=== PATIENT | male | born 1935 | race Caucasian/White ===

== ENCOUNTER → 2018-09-19 | Outpatient (CLI) | payer MEDICARE, OTHER ==
--- NOTE | 2018-09-19 11:52 | Diagnostic Imaging Report ---
INDICATION: Cough and congestion. FINDINGS: The lungs are clear. The heart and vessels are normal. There is no effusion or pneumothorax. IMPRESSION: No acute appearing abnormality. Dictated by: Dictated on workstation # [id number]
== END ==
LOC: RAD FS 11:33
PROVIDERS: ATTEND Nurse Practitioner Family
DX: R05 Cough (principal); B96.89 Other specified bacterial agents as the cause of diseases classified elsewhere; R09.89 Other specified symptoms and signs involving the circulatory and respiratory systems
CPT/HCPCS: 71046

== ENCOUNTER 2020-07-06 10:02 | Emergency (ER) | payer MEDICARE, OTHER ==
[~2020-07-06] VITALS: Ht 167.7 cm; Wt 110.0 kg
--- NOTE | 2020-07-06 10:07 | ED Cardiac General ---
History of Present Illness General Stated Complaint: LOW HR; ARRHYTHMIA Source: patient Exam Limitations: no limitations History of Present Illness Date Seen by Provider: Jul 06, 2020 Time Seen by Provider: 10:07 Initial Comments 84-year-old male presents with 2-3 days of feeling weak and decreased appetite. This morning was using a pulse oximeter and stated that his heart rate was fluctuating between 30 and 100 and he was feeling palpitations at the time. Denies history of heart or lung problems, denies recent illness fever or chills. Denies known exposure to the Hawthorne virus. Only significant past medical history is hypertension and prostate Hypertrophy. Allergies and Home Medications Allergies Coded Allergies: No Known Drug Allergies (Unverified , 07/06/20) Home Medications Azithromycin 250 Mg Tablet, 250 MG PO UD TAKE 2 TABLETS ON DAY ONE THEN TAKE 1 TABLET DAILY FOR FOUR MORE DAYS Prescribed by: MARILUZ RODRIGUEZ on 07/06/20 1131 Patient Home Medication List Home Medication List Reviewed: Yes Review of Systems Review of Systems Constitutional: No chills, No diaphoresis; dizziness; No fever; malaise, weakness EENTM: No Symptoms Reported Respiratory: No Symptoms Reported; Denies Cough, Denies Shortness of Air Cardiovascular: Denies Chest Pain, Denies Edema; Lightheadedness, Palpitations; Denies Syncope Gastrointestinal: Denies Abdomen Distended, Denies Abdominal Pain, Denies Constipated, Denies Nausea; Poor Appetite, Poor Fluid Intake; Denies Vomiting Musculoskeletal: No back pain, No joint pain, No neck pain Skin: No change in color, No lesions, No rash Psychiatric/Neurological: Denies Headache, Denies Numbness, Denies Paresthesia, Denies Seizure, Denies Tingling, Denies Tremors; Weakness Past Vuqusbi-Oahpas-Knghmx Hx Past Med/Social Hx: Reviewed Nursing Past Med/Soc Hx Patient Social History Alcohol Use: Denies Use Physical Exam Vital Signs Vital Signs - First Documented 07/06/20 10:08 Temp 37.0 Pulse 96 Resp 15 B/P (MAP) 134/66 (88) Pulse Ox 95 O2 Delivery Room Air Capillary Refill : Height, Weight, BMI Height: '" Weight: lbs. oz. kg; BMI Method: General Appearance: No Apparent Distress, WD/WN HEENT: PERRL/EOMI, Normal ENT Inspection Neck: Non Tender, Supple Respiratory: Chest Non Tender, Lungs Clear, Normal Breath Sounds, No Accessory Muscle Use, No Respiratory Distress Cardiovascular: Regular Rate, Rhythm, No Edema, No Gallop, No JVD, No Murmur, Normal Peripheral Pulses Gastrointestinal: Normal Bowel Sounds, Non Tender, Soft Extremity: Normal Capillary Refill, Normal Inspection, Non Tender, No Calf Tenderness Neurologic/Psychiatric: Alert, Oriented x3, No Motor/Sensory Deficits, Normal Mood/Affect, commissioning specialist II-XII Norm as Tested Skin: Normal Color, Warm/Dry Progress/Results/Core Measures Results/Orders Lab Results Laboratory Tests Test 07/06/20 10:14 07/06/20 10:30 Range/Units White Blood Count 6.0 4.3-11.0 10^3/uL Red Blood Count 4.52 4.35-5.85 10^6/uL Hemoglobin 14.7 13.3-17.7 G/DL Hematocrit 43 40-54 % Mean Corpuscular Volume 96 80-99 FL Mean Corpuscular Hemoglobin 33 25-34 PG Mean Corpuscular Hemoglobin Concent 34 32-36 G/DL Red Cell Distribution Width 12.5 10.0-14.5 % Platelet Count 150 130-400 10^3/uL Mean Platelet Volume 10.5 H 7.4-10.4 FL Immature Granulocyte % (Auto) 0 % Neutrophils (%) (Auto) 50 42-75 % Lymphocytes (%) (Auto) 34 12-44 % Monocytes (%) (Auto) 15 H 0-12 % Eosinophils (%) (Auto) 0 0-10 % Basophils (%) (Auto) 1 0-10 % Neutrophils # (Auto) 3.0 1.8-7.8 X 10^3 Lymphocytes # (Auto) 2.0 1.0-4.0 X 10^3 Monocytes # (Auto) 0.9 0.0-1.0 X 10^3 Eosinophils # (Auto) 0.0 0.0-0.3 10^3/uL Basophils # (Auto) 0.0 0.0-0.1 10^3/uL Immature Granulocyte # (Auto) 0.0 0.0-0.1 10^3/uL Sodium Level 135 135-145 MMOL/L Potassium Level 4.4 3.6-5.0 MMOL/L Chloride Level 99 98-107 MMOL/L Carbon Dioxide Level 23 21-32 MMOL/L Anion Gap 13 5-14 MMOL/L Blood Urea Nitrogen 17 7-18 MG/DL Creatinine 1.07 0.60-1.30 MG/DL Estimat Glomerular Filtration Rate > 60 BUN/Creatinine Ratio 16 Glucose Level 117 H 70-105 MG/DL Calcium Level 9.1 8.5-10.1 MG/DL Corrected Calcium 9.3 8.5-10.1 MG/DL Total Bilirubin 0.6 0.1-1.0 MG/DL Aspartate Amino Transf (AST/SGOT) 49 H 5-34 U/L Alanine Aminotransferase (ALT/SGPT) 46 0-55 U/L Alkaline Phosphatase 57 40-136 U/L Troponin I < 0.30 <0.30 NG/ML C-Reactive Protein 1.55 H <0.50 MG/DL Total Protein 7.4 6.4-8.2 GM/DL Albumin 3.8 3.2-4.5 GM/DL Micro Results Microbiology 07/06/20 Influenza Types A,B Antigen (LYNNE) - Final, Complete My Orders Orders - MARILUZ RODRIGUEZ DO Ed Iv/Invasive Line Start (07/06/20 10:11) Troponin I Fs (07/06/20 10:11) Chest 1 View Ap/Pa Only (07/06/20 10:11) Ekg Tracing (07/06/20 10:11) Cbc With Automated Diff (07/06/20 10:11) Comprehensive Metabolic Panel (07/06/20 10:11) Urinalysis (07/06/20 10:11) Crp Fs (07/06/20 10:24) Procalcitonin (Pct) (07/06/20 10:24) Coronavirus Sars-Cov-2 So 2018 (07/06/20 10:24) Influenza A And B Antigens (07/06/20 10:28) Ns Iv 1000 Ml (Sodium Chloride 0.9%) (07/06/20 11:00) Vital Signs/I&O 07/06/20 07/06/20 10:08 11:35 Temp 37.0 37.0 Pulse 96 88 Resp 15 16 B/P (MAP) 134/66 (88) 126/49 (88) Pulse Ox 95 94 O2 Delivery Room Air Progress Progress Note : Progress Note Patient without any respiratory symptoms currently or in the past few weeks. Overall, feeling weakness and decreased appetite for 2 weeks. Labs are completely normal and CXR with questionable opacity in LLL. Decision to treat w Azithromycin and advise f/u w PCP in 1-2 weeks for re-evaluation. Also, tested for C-19 which will be pending. HR improved (from 100 to 80's) after 1 liter NS iv. Reassurance given about his concern over a fluctuating heart rate this morning from his pulse oximeter, explained that it may not have been picking up his pulse accurately as he said it was going up and down. Also during his entire ER stay, he was watched on the monitor and his heart rate was consistently in the 9 0s until after he was given fluid. Initial ECG Impression Date: Jul 06, 2020 Initial ECG Impression Time: 10:15 Initial ECG Rhythm: Normal Sinus Initial ECG Intervals: Normal Initial ECG Impression: Normal Initial ECG Comparisson: No Previous ECG Available Diagnostic Imaging Diagonstic Imaging: Xray Plain Films/CT/US/NM/MRI: chest Comments Date of Exam:07/06/20 CHEST 1 VIEW AP/PA ONLY INDICATION: weakness. TECHNIQUE: Single view chest 10:15 AM. CORRELATION STUDY: 09/19/2018 FINDINGS: The heart size, mediastinal configuration and pulmonary vascularity are within normal limits. Minimal opacity left lung base. Could reflect small area of developing infiltrate. Remaining lung suh otherwise clear. IMPRESSION: 1. Opacity left lung base could be a developing area of infiltrate. Follow-up imaging if clinically warranted. Dictated on workstation # [id number] Dict: 07/06/20 1030 Trans: 07/06/20 1043 APRIL [id number] Interpreted by: GORDO JACOBO DO Electronically signed by: Departure Impression Primary Impression: Weakness Additional Impression: Mild dehydration Disposition: HOME, SELF-CARE Condition: Stable Departure-Patient Inst. Decision time for Depature: 11:08 Referrals: SELFRUBIO MD (PCP/Family) Primary Care Physician Patient Instructions: Dehydration, Adult ED, Weakness ED Add. Discharge Instructions: See your doctor in 1 week for follow up evaluation. It is also advised you get a follow up chest x-ray from your doctor in 1 or 2 weeks The antibiotic is given you for a potential infection in your left lower lung. You will get a phone call regarding the results of your Covid test Scripts Azithromycin (Azithromycin) 250 Mg Tablet 250 MG PO UD, #6 TAB TAKE 2 TABLETS ON DAY ONE THEN TAKE 1 TABLET DAILY FOR FOUR MORE DAYS Prov: MARILUZ RODRIGUEZ DO 07/06/20 MARILUZ RODRIGUEZ DO Jul 06, 2020 10:07
[2020-07-06 10:27] LABS: HEMATOCRIT 43 % (40-54); HEMOGLOBIN 14.7 G/DL (13.3-17.7); MEAN CORPUSCULAR HEMOGLOBIN 33 PG (25-34); MEAN CORPUSCULAR VOLUME 96 FL (80-99)
[2020-07-06 10:28] LABS: BASOPHILS % (AUTO) 1 % (0-10); EOSINOPHILS % (AUTO) 0 % (0-10); LYMPHOCYTES % (AUTO) 34 % (12-44); MEAN CORPUSCULAR HGB CONC 34 G/DL (32-36); MEAN PLATELET VOLUME 10.5 FL (7.4-10.4); MONOCYTES # (AUTO) 0.9 X 10^3 (0.0-1.0); MONOCYTES % (AUTO) 15 % (0-12); NEUTROPHILS % (AUTO) 50 % (42-75); PLATELET COUNT 150 10^3/uL (130-400)
--- NOTE | 2020-07-06 10:43 | Diagnostic Imaging Report ---
INDICATION: weakness. TECHNIQUE: Single view chest 10:15 AM. CORRELATION STUDY: 09/19/2018 FINDINGS: The heart size, mediastinal configuration and pulmonary vascularity are within normal limits. Minimal opacity left lung base. Could reflect small area of developing infiltrate. Remaining lung suh otherwise clear. IMPRESSION: 1. Opacity left lung base could be a developing area of infiltrate. Follow-up imaging if clinically warranted. Dictated by: Dictated on workstation # [id number]
[2020-07-06 10:45] LABS: SODIUM 135 MMOL/L (135-145)
[2020-07-06 10:46] LABS: ALANINE AMINOTRANSFERASE 46 U/L (0-55); ALBUMIN 3.8 GM/DL (3.2-4.5); ALKALINE PHOSPHATASE 57 U/L (40-136); BILIRUBIN,TOTAL 0.6 MG/DL (0.1-1.0); BUN/CREATININE RATIO 16; CALCIUM 9.1 MG/DL (8.5-10.1); CARBON DIOXIDE 23 MMOL/L (21-32); CHLORIDE 99 MMOL/L (98-107); CREATININE SERUM 1.07 MG/DL (0.60-1.30); GFR ESTIMATED > 60; GLUCOSE 117 MG/DL (70-105); POTASSIUM 4.4 MMOL/L (3.6-5.0); TOTAL PROTEIN 7.4 GM/DL (6.4-8.2)
[2020-07-06] MEDS ORDERED: NS IV 1000 ML 1,000 ML IV SCH (11:00)
[2020-07-06] MEDS ORDERED: AZIT250T12 PO (11:31)
[2020-07-06 11:35] VITALS: BP 126/49
--- NOTE | 2020-07-08 10:53 | NUR ---
Notified patient of positive COVID test.
--- NOTE | 2020-07-08 10:59 | NUR ---
Notified Sumi BRENNAN at Dr Braun office of patients positive COVID test.
== END 2020-07-06 11:35 | disposition home or self-care (01) ==
LOC: EDUNIT# 10:02 → ER FS 10:05
DX: U07.1 COVID-19 (principal); R53.1 Weakness; E86.0 Dehydration
CPT/HCPCS: 36415; 71045; 80053; 84145; 84484; 85025; 86141; 87804 ×2; 93005; 99284; U0002; 87635

== ENCOUNTER 2020-07-11 10:10 | Emergency (ER) | payer MEDICARE, OTHER ==
[~2020-07-11] VITALS: Ht 172 cm; Wt 100.0 kg
[~2020-07-11 10:10] MED LIST: AZIT250T12 PO
--- NOTE | 2020-07-11 10:40 | ED General ---
General Chief Complaint: Cough/Cold/Flu Symptoms Stated Complaint: COUGH,DIZZINESS Nursing Triage Note: PT WAS POSITIVE FOR COVID 5 DAYS AGO. HE COMES TO ER TODAY BECAUSE HE STILL HAS A COUGH AND FEELS DIZZY SOMETIMES AFTER COUGHING. Nursing Sepsis Screen: No Definite Risk Source of Information: Patient History of Present Illness Date Seen by Provider: Jul 11, 2020 Time Seen by Provider: 10:15 Initial Comments 84-year-old male presenting with complaints of feeling weak, dizzy at times, continued cough since being diagnosed with Covid when seen in ED 06 Jul 2020. He states that he completed the Z-José Manuel that was prescribed to him and he has 1 or [address] Rico had prescribed Mucinex DM as well as Tessalon Perles to help with his coughing. He occasionally will bring up some clear or thick white sputum. He denies any fever or chills. He had called the clinic about his symptoms and they told him to come to the emergency department. Allergies and Home Medications Allergies Coded Allergies: No Known Drug Allergies (Unverified , 07/06/20) Home Medications Albuterol Sulfate 2.5 Mg/3 Ml Vial.neb, 2.5 MG INH Q4H PRN for COUGH Prescribed by: TIARRA CORDOBA on 07/11/20 1133 Azithromycin 250 Mg Tablet, 250 MG PO UD TAKE 2 TABLETS ON DAY ONE THEN TAKE 1 TABLET DAILY FOR FOUR MORE DAYS Prescribed by: MARILUZ RODRIGUEZ on 07/06/20 1131 Patient Home Medication List Home Medication List Reviewed: Yes Review of Systems Review of Systems Constitutional: No chills; dizziness (Intermittent); No fever; malaise EENTM: nose congestion; No epistaxis Respiratory: see HPI, cough Cardiovascular: No chest pain Gastrointestinal: no symptoms reported Genitourinary: no symptoms reported Musculoskeletal: no symptoms reported Skin: no symptoms reported Psychiatric/Neurological: Weakness (Generalized) Hematologic/Lymphatic: No Symptoms Reported Past Lcaghrd-Stdnbj-Zxoqjv Hx Past Med/Social Hx: Reviewed Nursing Past Med/Soc Hx Patient Social History Alcohol Use: Denies Use Recent Infectious Disease Expo: Yes Recent Hopitalizations: No Seasonal Allergies Seasonal Allergies: No Past Medical History Surgeries: Yes (Right ankle repair, Kidney stone retrieval) Appendectomy, Orthopedic, Tonsillectomy Respiratory: No Cardiac: Yes Hypertension Neurological: No Genitourinary: Yes Benign Prostatic Hyperpl Gastrointestinal: No Musculoskeletal: No Endocrine: No HEENT: No Cancer: No Psychosocial: No Blood Disorders: No Physical Exam Vital Signs Vital Signs - First Documented 07/11/20 10:27 Temp 37.6 Pulse 91 Resp 20 B/P (MAP) 167/67 (100) Pulse Ox 100 O2 Delivery Room Air Capillary Refill : Less Than 3 Seconds Height, Weight, BMI Height: '" Weight: lbs. oz. 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 Norm as Tested Skin: Normal Color, Warm/Dry Progress/Results/Core Measures Suspected Sepsis Recent Fever Within 48 Hours: No Infection Criteria Present: None New/Unexplained Altered Menta: No Sepsis Screen: No Definite Risk SIRS Temperature: Pulse: 91 Respiratory Rate: 20 Laboratory Tests 07/11/20 10:40: White Blood Count 9.6 Blood Pressure 167 /67 Mean: 100 Laboratory Tests 07/11/20 10:40: Creatinine 1.00, Platelet Count 212, Total Bilirubin 0.6 Results/Orders Lab Results Laboratory Tests Test 07/11/20 10:40 Range/Units White Blood Count 9.6 4.3-11.0 10^3/uL Red Blood Count 4.21 L 4.35-5.85 10^6/uL Hemoglobin 13.8 13.3-17.7 G/DL Hematocrit 40 40-54 % Mean Corpuscular Volume 94 80-99 FL Mean Corpuscular Hemoglobin 33 25-34 PG Mean Corpuscular Hemoglobin Concent 35 32-36 G/DL Red Cell Distribution Width 12.4 10.0-14.5 % Platelet Count 212 130-400 10^3/uL Mean Platelet Volume 10.6 H 7.4-10.4 FL Immature Granulocyte % (Auto) 0 % Neutrophils (%) (Auto) 76 H 42-75 % Lymphocytes (%) (Auto) 13 12-44 % Monocytes (%) (Auto) 11 0-12 % Eosinophils (%) (Auto) 0 0-10 % Basophils (%) (Auto) 0 0-10 % Neutrophils # (Auto) 7.2 1.8-7.8 X 10^3 Lymphocytes # (Auto) 1.2 1.0-4.0 X 10^3 Monocytes # (Auto) 1.1 H 0.0-1.0 X 10^3 Eosinophils # (Auto) 0.0 0.0-0.3 10^3/uL Basophils # (Auto) 0.0 0.0-0.1 10^3/uL Immature Granulocyte # (Auto) 0.0 0.0-0.1 10^3/uL Sodium Level 135 135-145 MMOL/L Potassium Level 4.2 3.6-5.0 MMOL/L Chloride Level 100 98-107 MMOL/L Carbon Dioxide Level 25 21-32 MMOL/L Anion Gap 10 5-14 MMOL/L Blood Urea Nitrogen 19 H 7-18 MG/DL Creatinine 1.00 0.60-1.30 MG/DL Estimat Glomerular Filtration Rate > 60 BUN/Creatinine Ratio 19 Glucose Level 122 H 70-105 MG/DL Calcium Level 9.2 8.5-10.1 MG/DL Corrected Calcium 9.6 8.5-10.1 MG/DL Total Bilirubin 0.6 0.1-1.0 MG/DL Aspartate Amino Transf (AST/SGOT) 36 H 5-34 U/L Alanine Aminotransferase (ALT/SGPT) 40 0-55 U/L Alkaline Phosphatase 47 40-136 U/L Troponin I < 0.30 <0.30 NG/ML C-Reactive Protein 2.22 H <0.50 MG/DL Total Protein 6.9 6.4-8.2 GM/DL Albumin 3.5 3.2-4.5 GM/DL My Orders Orders - TIARRA CORDOBA MD Monitor-Rhythm Ecg Trace Only (07/11/20 10:38) Ed Iv/Invasive Line Start (07/11/20 10:38) Cbc With Automated Diff (07/11/20 10:38) Comprehensive Metabolic Panel (07/11/20 10:38) Crp Fs (07/11/20 10:38) Troponin I Fs (07/11/20 10:38) Ekg Tracing (07/11/20 10:38) Ns Iv 1000 Ml (Sodium Chloride 0.9%) (07/11/20 10:45) Rx-Albuterol Inhaler (Rx-Ventolin Hfa) (07/11/20 10:45) Chest 1 View Ap/Pa Only (07/11/20 11:01) Medications Given in ED Current Medications Medications Dose Ordered Sig/Liliana Route Start Time Stop Time Status Last Admin Dose Admin Albuterol Sulfate 2 PUFFS IH Q1HR STA RTQ4HR PRN IH 07/11/20 10:45 07/11/20 11:47 DC 07/11/20 10:49 18 GM Vital Signs/I&O 07/11/20 07/11/20 10:27 11:39 Temp 37.6 36.5 Pulse 91 77 Resp 20 16 B/P (MAP) 167/67 (100) 151/65 Pulse Ox 100 100 O2 Delivery Room Air Room Air Capillary Refill : Less Than 3 Seconds Blood Pressure Mean: 100 Progress Note #1: Progress Note Check basic labs and x-ray. Give a liter of normal saline to try and help with hydration. Patient's oxygen saturation is 100% on room air. His lungs are clear on exam. We will see what his chest x-ray shows as well as making sure that his electrolytes appear okay. Adding an inhaler and breathing treatments may help with his cough. Encouraged to continue the Mucinex DM and Tessalon Perles as needed. Progress Note #2: Progress Note CBC is not showing any acute significant abnormality. His white count is 9.6 with a slight left shift. His electrocardiogram shows sinus rhythm without isch emic changes. He does state that he has a nebulizer at home but has not been using it because he was not told to use it for his symptoms Progress Note #3: Time: 11:23 Progress Note Chemistry without acute significant abnormality as well. He does have elevated CRP to go with Covid diagnosis. CXR appears stable from 06 Jul 2020. Will d ischarge to home and have him use nebulizer and inhaler with spacer to help with cough. Encourage fluids and rest. Counseled that Covid will make him feel bad and can take a while to recover from it. Every one is different but continue with symptomatic treatment for his cough and push fluids and rest as well as Vitamin C to help recover from viral infection. ECG Initial ECG Impression Date: Jul 11, 2020 Initial ECG Impression Time: 10:44 Initial ECG Rate: 81 Initial ECG Rhythm: Normal Sinus Initial ECG Comparisson: No Previous ECG Available Comment Normal sinus rhythm with a heart rate of 81 bpm. VT interval 154 ms. QT interval 357 ms with a QTc interval 415 ms. There is no acute ST elevation. There is no prior tracing available for comparison. Diagnostic Imaging Diagonstic Imaging: Xray Plain Films/CT/US/NM/MRI: chest Comments [facility] [place], [place] NAME: LLOYD GREWAL [facility] REC#: [id number] PT STATUS: DEP ER : 1935 PHYSICIAN: TIARRA CORDOBA MD ADMIT DATE: 07/11/20/ER FS Signed Date of Exam:07/11/20 CHEST 1 VIEW AP/PA ONLY INDICATION: Cough and COVID infection. TECHNIQUE: Portable AP view of the chest is obtained. FINDINGS: Since 07/06/2020, there are continued predominantly linear markings in the lung bases which may be due to atelectasis or possible scarring. There is no pneumothorax. No significant lobar consolidation or pleural fluid is identified. IMPRESSION: Basilar atelectasis and/or pneumonitis versus developing scarring, bilaterally. Dictated by: Dictated on workstation # [id number] Dict: 07/11/20 1134 Trans: 07/11/20 1154 [id number] [id number] Interpreted by: ROBERT CORNELIUS MD Electronically signed by: ROBERT CORNELIUS MD 07/11/20 1154 Departure Impression Primary Impression: Cough Additional Impression: COVID-19 virus infection Disposition: HOME, SELF-CARE Condition: Stable Departure-Patient Inst. Decision time for Depature: 11:35 Referrals: RUBIO RICO MD (PCP/Family) Primary Care Physician Patient Instructions: Coronavirus Disease 2019 (COVID-19) ED, Cough, Adult ED, How to Use Your Metered Dose Inhaler (Adults), How to Use a Spacer Add. Discharge Instructions: Use inhaler with spacer or your nebulizer machine to do breathing treatments every 4 to 6 hours as needed to help with cough and shortness of breath. Follow up with Dr. Rico and [facility] for continued concerns. Continue with cough medicine as prescribed from Dr. Rico. Continue with humidifier at the bedside. Make sure you are drinking plenty of fluids and staying well hydrated. All discharge instructions reviewed with patient and/or family. Voiced understanding. Scripts Albuterol Sulfate (Albuterol Sulfate) 2.5 Mg/3 Ml Vial.neb 2.5 MG INH Q4H PRN for COUGH for 10 Days, #75 ML 1 Refill Prov: TIARRA CORDOBA MD 07/11/20 TIARRA CORDOBA MD Jul 11, 2020 10:40
[2020-07-11] MEDS ORDERED: NS IV 1000 ML 1,000 ML IV SCH (10:45)
[2020-07-11] MEDS ORDERED: RX-ALBUTEROL INHALER (VENTOLIN HFA) 18 GM IH PRN (10:45)
[2020-07-11 11:04] LABS: BASOPHILS % (AUTO) 0 % (0-10); EOSINOPHILS % (AUTO) 0 % (0-10); HEMATOCRIT 40 % (40-54); HEMOGLOBIN 13.8 G/DL (13.3-17.7); LYMPHOCYTES % (AUTO) 13 % (12-44); MEAN CORPUSCULAR HEMOGLOBIN 33 PG (25-34); MEAN CORPUSCULAR HGB CONC 35 G/DL (32-36); MEAN CORPUSCULAR VOLUME 94 FL (80-99); MEAN PLATELET VOLUME 10.6 FL (7.4-10.4); MONOCYTES % (AUTO) 11 % (0-12); NEUTROPHILS % (AUTO) 76 % (42-75); PLATELET COUNT 212 10^3/uL (130-400); WHITE BLOOD COUNT 9.6 10^3/uL (4.3-11.0)
[2020-07-11 11:05] LABS: LYMPHOCYTES # (AUTO) 1.2 X 10^3 (1.0-4.0); MONOCYTES # (AUTO) 1.1 X 10^3 (0.0-1.0); NEUTROPHILS # (AUTO) 7.2 X 10^3 (1.8-7.8)
[2020-07-11 11:16] LABS: ALANINE AMINOTRANSFERASE 40 U/L (0-55); ALBUMIN 3.5 GM/DL (3.2-4.5); ALKALINE PHOSPHATASE 47 U/L (40-136); BILIRUBIN,TOTAL 0.6 MG/DL (0.1-1.0); BUN/CREATININE RATIO 19; CALCIUM 9.2 MG/DL (8.5-10.1); CARBON DIOXIDE 25 MMOL/L (21-32); CHLORIDE 100 MMOL/L (98-107); GFR ESTIMATED > 60; GLUCOSE 122 MG/DL (70-105); POTASSIUM 4.2 MMOL/L (3.6-5.0); SODIUM 135 MMOL/L (135-145); TOTAL PROTEIN 6.9 GM/DL (6.4-8.2)
[2020-07-11] MEDS ORDERED: ALBU2.5V4 INH (11:33)
--- NOTE | 2020-07-11 11:38 | Diagnostic Imaging Report ---
INDICATION: Cough and COVID infection. TECHNIQUE: Portable AP view of the chest is obtained. FINDINGS: Since 07/06/2020, there are continued predominantly linear markings in the lung bases which may be due to atelectasis or possible scarring. There is no pneumothorax. No significant lobar consolidation or pleural fluid is identified. IMPRESSION: Basilar atelectasis and/or pneumonitis versus developing scarring, bilaterally. Dictated by: Dictated on workstation # [id number]
[2020-07-11 11:39] VITALS: BP 151/65
== END 2020-07-11 11:47 | disposition home or self-care (01) ==
LOC: EDUNIT# 10:10 → ER FS 10:12
DX: U07.1 COVID-19 (principal)
CPT/HCPCS: 36415; 71045; 80053; 84484; 85025; 86141; 93005; 93041

== ENCOUNTER → 2021-09-18 | Outpatient (RCR) | payer MEDICARE, OTHER ==
[~2021-09-18] MED LIST changes: +ALBU2.5V4 INH
== END ==
LOC: ONC 09-17 09:34
PROVIDERS: ATTEND Radiology Radiation Oncology
DX: C20 Malignant neoplasm of rectum (principal)
CPT/HCPCS: 99204

== ENCOUNTER 2021-09-30 14:05 | Emergency (ER) | payer MEDICARE, OTHER ==
[~2021-09-30] VITALS: Ht 167.9 cm; Wt 90.7 kg
[2021-09-30] MEDS ORDERED: ADENOSINE 6 MG/2 ML (ADENOCARD) VIAL IV ONE (14:16)
[2021-09-30] MEDS ORDERED: ADENOSINE 6 MG/2 ML (ADENOCARD) VIAL IV STA (14:34)
--- NOTE | 2021-09-30 14:42 | ED Cardiac General ---
History of Present Illness General Chief Complaint: Cardiac/General Problems Stated Complaint: TACHYCARDIA Source: patient Exam Limitations: no limitations History of Present Illness Date Seen by Provider: Sep 30, 2021 Time Seen by Provider: 14:18 Initial Comments Patient to the ER by private conveyance from cancer center Dr. Burton where he was receiving radiation therapy and chemotherapy for colorectal cancer. He is having some shortness of breath and palpitations and fast running heart rate. No chest pain. No syncope or near syncope. While sitting in the bed he denies any shortness of air. He has not had a cough fever chills nausea or vomiting. He did recently get over bronchitis a few weeks ago. 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 He does not have any known heart history other than high blood pressure, borderline diabetes and hyperlipidemia. He is not a smoker. He does however have a history of COPD Allergies and Home Medications Allergies Coded Allergies: No Known Drug Allergies (Unverified , 07/06/20) Patient Home Medication List Home Medication List Reviewed: Yes Albuterol Sulfate (Albuterol Sulfate) 2.5 Mg/3 Ml Vial.neb, 2.5 MG INH Q4H PRN for COUGH Prescribed by: TIARRA CORDOBA on 07/11/20 1133 Azithromycin (Azithromycin) 250 Mg Tablet, 250 MG PO UD Prescribed by: MARILUZ ORDRIGUEZ on 07/06/20 1131 Review of Systems Review of Systems Constitutional: No chills, No diaphoresis EENTM: No Blurred Vision, No Double Vision Respiratory: Denies Cough, Denies Shortness of Air; SOA With Exertion; Denies SOA at Rest Cardiovascular: See HPI; Denies Chest Pain, Denies Irregular Heart Rate; Lightheadedness; Denies Syncope Gastrointestinal: Denies Abdomen Distended, Denies Abdominal Pain Genitourinary: Denies Burning, Denies Discharge Musculoskeletal: No back pain, No joint pain Skin: No change in color, No pruritus, No rash Psychiatric/Neurological: Denies Headache, Denies Numbness All Other Systems Reviewed Negative Unless Noted: Yes Past Frifazb-Mpfwgx-Ysbxmc Hx Patient Social History Tobacco Use?: No Use of E-Cig and/or Vaping dev: No Substance use?: No Seasonal Allergies Seasonal Allergies: No Past Medical History Surgeries: Yes (Right ankle repair, Kidney stone retrieval) Appendectomy, Orthopedic, Tonsillectomy Respiratory: No Cardiac: Yes Hypertension Neurological: No Genitourinary: Yes Benign Prostatic Hyperpl Gastrointestinal: No Musculoskeletal: No Endocrine: No HEENT: No Cancer: No Psychosocial: No Blood Disorders: No Physical Exam Vital Signs Vital Signs - First Documented 09/30/21 14:05 Temp 36.6 Pulse 181 Resp 24 B/P (MAP) 136/102 (113) Pulse Ox 94 Capillary Refill : Height, Weight, BMI Height: '" Weight: lbs. oz. kg; 33.00 BMI Method: General Appearance: No Apparent Distress, WD/WN HEENT: PERRL/EOMI, Pharynx Normal, Moist Mucous Membranes Neck: Full Range of Motion, Normal Inspection, Non Tender Respiratory: Lungs Clear, Normal Breath Sounds, No Accessory Muscle Use, No Res piratory Distress Cardiovascular: No Edema, No Murmur, Normal Peripheral Pulses, Tachycardia (1 80-1 90) Gastrointestinal: Normal Bowel Sounds, No Organomegaly, Non Tender, Soft Extremity: Normal Capillary Refill, Normal Inspection, Non Tender, No Calf Tenderness, No Pedal Edema Neurologic/Psychiatric: Alert, Oriented x3, No Motor/Sensory Deficits, Normal 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, 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 Norm as Tested Skin: Normal Color, Warm/Dry Progress/Results/Core Measures Results/Orders Lab Results Laboratory Tests Test 09/30/21 14:11 Range/Units White Blood Count 11.7 H 4.3-11.0 10^3/uL Red Blood Count 4.36 4.30-5.52 10^6/uL Hemoglobin 13.7 13.3-17.7 g/dL Hematocrit 41 40-54 % Mean Corpuscular Volume 94 80-99 fL Mean Corpuscular Hemoglobin 31 25-34 pg Mean Corpuscular Hemoglobin Concent 33 32-36 g/dL Red Cell Distribution Width 13.6 10.0-14.5 % Platelet Count 333 130-400 10^3/uL Mean Platelet Volume 10.1 9.0-12.2 fL Immature Granulocyte % (Auto) 0 % Neutrophils (%) (Auto) 61 42-75 % Lymphocytes (%) (Auto) 21 12-44 % Monocytes (%) (Auto) 13 H 0-12 % Eosinophils (%) (Auto) 4 0-10 % Basophils (%) (Auto) 1 0-10 % Neutrophils # (Auto) 7.2 1.8-7.8 10^3/uL Lymphocytes # (Auto) 2.4 1.0-4.0 10^3/uL Monocytes # (Auto) 1.5 H 0.0-1.0 10^3/uL Eosinophils # (Auto) 0.4 H 0.0-0.3 10^3/uL Basophils # (Auto) 0.1 0.0-0.1 10^3/uL Immature Granulocyte # (Auto) 0.1 0.0-0.1 10^3/uL Prothrombin Time 14.2 12.2-14.7 SEC INR Comment 1.1 0.8-1.4 Activated Partial Thromboplast Time 41 H 24-35 SEC Sodium Level 138 135-145 MMOL/L Potassium Level 4.3 3.6-5.0 MMOL/L Chloride Level 103 98-107 MMOL/L Carbon Dioxide Level 23 21-32 MMOL/L Anion Gap 12 5-14 MMOL/L Blood Urea Nitrogen 16 7-18 MG/DL Creatinine 1.04 0.60-1.30 MG/DL Estimat Glomerular Filtration Rate 71 BUN/Creatinine Ratio 15 Glucose Level 120 H 70-105 MG/DL Calcium Level 9.6 8.5-10.1 MG/DL Corrected Calcium 9.9 8.5-10.1 MG/DL Magnesium Level 2.4 1.6-2.4 MG/DL Total Bilirubin 0.6 0.1-1.0 MG/DL Aspartate Amino Transf (AST/SGOT) 45 H 5-34 U/L Alanine Aminotransferase (ALT/SGPT) 53 0-55 U/L Alkaline Phosphatase 67 40-136 U/L Myoglobin 179.3 H 10.0-92.0 NG/ML Troponin I < 0.028 <0.028 NG/ML Total Protein 7.3 6.4-8.2 GM/DL Albumin 3.6 3.2-4.5 GM/DL My Orders Orders - ATTILA GUERRA Adenosine Injection (Adenocard Injection (09/30/21 14:16) Cbc With Automated Diff (09/30/21 14:34) Magnesium (09/30/21 14:34) Chest 1 View, Ap/Pa Only (09/30/21 14:34) Ekg Tracing (09/30/21 14:34) Comprehensive Metabolic Panel (09/30/21 14:34) Myoglobin Serum (09/30/21 14:34) Protime With Inr (09/30/21 14:34) Partial Thromboplastin Time (09/30/21 14:34) O2 (09/30/21 14:34) Monitor-Rhythm Ecg Trace Only (09/30/21 14:34) Lipid Panel (10/01/21 06:00) Ed Iv/Invasive Line Start (09/30/21 14:34) Troponin I Jay (09/30/21 14:34) Adenosine Injection (Adenocard Injection (09/30/21 14:34) Aspirin Chewable Tablet (Baby Aspirin Ch (09/30/21 14:45) Ekg Tracing (09/30/21 14:34) Medications Given in ED Current Medications Medications Dose Ordered Sig/Liliana Route Start Time Stop Time Status Last Admin Dose Admin Aspirin 324 mg ONCE ONCE PO 09/30/21 14:45 09/30/21 14:46 DC 09/30/21 14:45 324 MG Vital Signs/I&O 09/30/21 14:05 Temp 36.6 Pulse 181 Resp 24 B/P (MAP) 136/102 (113) Pulse Ox 94 Progress Progress Note : Time: 14:44 Progress Note He was immediately brought back in the ER an EKG was obtained demonstrating SVT. Given his history we elected to chemically cardiovert him. He had a blood pressure 136/80. We gave him 6 mg IV adenosine and watched him convert into a sinus rhythm around 100. Initial ECG Impression Date: Sep 30, 2021 Initial ECG Impression Time: 14:14 Initial ECG Rate: 186 Initial ECG Rhythm: SVT Initial ECG Intervals: QT (459) Initial ECG Impression: SVT Comment SVT without recognizable ST elevation or depression. EKG #1: EKG Time: 14:17 Rate: 185 Rhythm: SVT ECG Comparisson: Changed ECG Impression: SVT Comment SVT with transition time after pushing 6 mg of Adenocard to a sinus rhythm rate around 100. EKG #2: EKG Time: 14:20 Rate: 91 Rhythm: Normal Sinus Intervals: Normal ECG Comparisson: Changed ECG Impression: Normal Comment Normal sinus rhythm without clinically relevant ST elevation or depression. Diagnostic Imaging Diagonstic Imaging: Xray Plain Films/CT/US/NM/MRI: chest Comments [facility] [place], [place] NAME: LLOYD GREWAL [facility] REC#: [id number] PT STATUS: REG ER : 1935 PHYSICIAN: ATTILA GUERRA MD ADMIT DATE: 09/30/21/ER Draft Date of Exam:09/30/21 CHEST 1 VIEW, AP/PA ONLY Indication: Tachycardia. Time of Exam: 3:09 PM Correlation is made with prior chest 07/11/2020. Finding: The heart size is normal. The pulmonary vascularity is unremarkable. The lungs are clear. No infiltrate, effusion or pneumothorax is detected. Impression: No acute cardiopulmonary process is detected. Dictated on workstation # [id number] Dict: 09/30/21 1522 Trans: 09/30/21 1522 [facility] [id number] Interpreted by: KARINA RAMIREZ MD Electronically signed by: Reviewed: Reviewed by Me Consults : Consulting Physician: CHUCK AGUIRRE MD Consults Notes Discussed the case with Dr. Aguirre, cardiology and if the patient is asymptomatic and not dehydrated he would recommend outpatient follow-up in the clinic. Departure Impression Primary Impression: Paroxysmal SVT (supraventricular tachycardia) Disposition: 01 HOME, SELF-CARE Condition: Stable Departure-Patient Inst. Decision time for Depature: 16:03 Referrals: CHUCK AGUIRRE MD, MAXWELL MD (PCP/Family) Primary Care Physician Patient Instructions: Supraventricular Tachycardia (SVT) Add. Discharge Instructions: Call Dr. Aguirre's office during business hours and set up a follow-up appointment sometime this week. Return to the ER promptly if you experience chest pain or profound shortness of air. If you go back into a rapid heart rate then imagine you are blowing air through a coffee stirrer straw across the room to blow out a candle. Do this once or twice a minute for 10 to 15 minutes. If you cannot get the rhythm to convert b ack to a normal rate on your own then return to the ER and we will help you. You may collect a copy of your records from medical records to take with you or have faxed to Dr. Bowles at . Make sure you are drinking plenty of fluids over the next couple days. All discharge instructions reviewed with patient and/or family. Voiced understanding. Copy Copies To 1: CHUCK AGUIRRE MD; SARINA ADAMSON TITUS J Sep 30, 2021 14:42
[2021-09-30] MEDS ORDERED: ASPIRIN 81 MG CHEW (CHILDREN'S ASA) PO ONE (14:45)
[2021-09-30 14:46] LABS: BASOPHILS # (AUTO) 0.1 10^3/uL (0.0-0.1); BASOPHILS % (AUTO) 1 % (0-10); EOSINOPHILS # (AUTO) 0.4 10^3/uL (0.0-0.3); EOSINOPHILS % (AUTO) 4 % (0-10); HEMATOCRIT 41 % (40-54); HEMOGLOBIN 13.7 g/dL (13.3-17.7); LYMPHOCYTES # (AUTO) 2.4 10^3/uL (1.0-4.0); LYMPHOCYTES % (AUTO) 21 % (12-44); MEAN CORPUSCULAR HEMOGLOBIN 31 pg (25-34); MEAN CORPUSCULAR HGB CONC 33 g/dL (32-36); MEAN CORPUSCULAR VOLUME 94 fL (80-99); MEAN PLATELET VOLUME 10.1 fL (9.0-12.2); MONOCYTES # (AUTO) 1.5 10^3/uL (0.0-1.0); MONOCYTES % (AUTO) 13 % (0-12); NEUTROPHILS # (AUTO) 7.2 10^3/uL (1.8-7.8); NEUTROPHILS % (AUTO) 61 % (42-75); PLATELET COUNT 333 10^3/uL (130-400); WHITE BLOOD COUNT 11.7 10^3/uL (4.3-11.0)
[2021-09-30 14:52] LABS: ALBUMIN 3.6 GM/DL (3.2-4.5); POTASSIUM 4.3 MMOL/L (3.6-5.0)
[2021-09-30 14:53] LABS: INR 1.1 (0.8-1.4); PROTHROMBIN TIME PATIENT 14.2 SEC (12.2-14.7)
[2021-09-30 14:54] LABS: CALCIUM 9.6 MG/DL (8.5-10.1)
[2021-09-30 14:55] LABS: TOTAL PROTEIN 7.3 GM/DL (6.4-8.2)
[2021-09-30 14:56] LABS: BILIRUBIN,TOTAL 0.6 MG/DL (0.1-1.0)
[2021-09-30 14:58] LABS: CREATININE SERUM 1.04 MG/DL (0.60-1.30)
[2021-09-30 15:02] LABS: MAGNESIUM 2.4 MG/DL (1.6-2.4)
--- NOTE | 2021-09-30 15:23 | Diagnostic Imaging Report ---
Indication: Tachycardia. Time of Exam: 3:09 PM Correlation is made with prior chest 07/11/2020. Finding: The heart size is normal. The pulmonary vascularity is unremarkable. The lungs are clear. No infiltrate, effusion or pneumothorax is detected. Impression: No acute cardiopulmonary process is detected. Dictated by: Dictated on workstation # [id number]
[2021-09-30 16:25] VITALS: BP 133/81
== END 2021-09-30 16:25 | disposition home or self-care (01) ==
LOC: EDUNIT# 14:11 → ER 14:12
DX: C18.9 Malignant neoplasm of colon, unspecified (principal); I47.1 Supraventricular tachycardia
CPT/HCPCS: 36415; 71045; 80053; 83735; 83874; 84484; 85025; 85610; 85730; 93005; 93041

== ENCOUNTER 2021-10-17 13:20 | Outpatient (RCR) | payer MEDICARE, OTHER | END 2021-10-18 | disposition home or self-care (01) | LOC: ONC 13:20 | PROVIDERS: ATTEND Radiology Radiation Oncology | DX: Z51.0 Encounter for antineoplastic radiation therapy (principal); C20 Malignant neoplasm of rectum; I10 Essential (primary) hypertension; Z86.16 Personal history of COVID-19; N40.0 Benign prostatic hyperplasia without lower urinary tract symptoms; E78.2 Mixed hyperlipidemia; Z79.82 Long term (current) use of aspirin; Z79.899 Other long term (current) drug therapy | CPT/HCPCS: 77300; 77301; 77338; 77386 ×2; 77470; G0463; 77336 ==

== ENCOUNTER 2021-11-06 13:17 | Outpatient (RCR) | payer MEDICARE, OTHER | END 2021-11-18 | disposition home or self-care (01) | LOC: ONC 13:17 | PROVIDERS: ATTEND Radiology Radiation Oncology | DX: Z51.0 Encounter for antineoplastic radiation therapy (principal); C20 Malignant neoplasm of rectum; I10 Essential (primary) hypertension; Z86.16 Personal history of COVID-19; N40.0 Benign prostatic hyperplasia without lower urinary tract symptoms; E78.2 Mixed hyperlipidemia; Z79.82 Long term (current) use of aspirin; Z79.899 Other long term (current) drug therapy | CPT/HCPCS: 77336; 77385; 77386 ==

== ENCOUNTER → 2021-11-10 | Outpatient (CLI) | payer MEDICARE, OTHER | LOC: CARD 11:34 | PROVIDERS: ATTEND Internal Medicine Cardiovascular Disease | DX: I11.9 Hypertensive heart disease without heart failure (principal); I08.0 Rheumatic disorders of both mitral and aortic valves | CPT/HCPCS: 93306 ==

== ENCOUNTER → 2021-11-10 | Outpatient (CLI) | payer MEDICARE, OTHER | LOC: SLEEP 11:33 | PROVIDERS: ATTEND Internal Medicine Cardiovascular Disease | DX: G47.33 Obstructive sleep apnea (adult) (pediatric) (principal); G47.36 Sleep related hypoventilation in conditions classified elsewhere ==

== ENCOUNTER 2021-12-25 11:32 | Outpatient (RCR) | payer MEDICARE, OTHER ==
[2022-01-19] MEDS ORDERED: TMSL.4C PO (12:52)
[2022-01-19] MEDS ORDERED: ACET-704 PO (12:52)
[2022-01-19] MEDS ORDERED: [UNRECOGNIZED DRUG - OTHER] PO (12:52)
[2022-01-19] MEDS ORDERED: LOPE-175 PO (12:52)
[2022-01-19] MEDS ORDERED: UBID100C17 PO (12:52)
[2022-01-19] MEDS ORDERED: RESV250C2 PO (12:52)
[2022-01-19] MEDS ORDERED: CHOL10004 PO (12:52)
[2022-01-19] MEDS ORDERED: ASPI-1238 PO (12:52)
[2022-01-19] MEDS ORDERED: PANT40TA52 PO (12:52)
[2022-01-19] MEDS ORDERED: BACI28.4 TP (12:52)
[2022-01-19] MEDS ORDERED: MONT-40 PO (12:52)
[2022-01-19] MEDS ORDERED: OMG1KC PO (12:52)
[2022-01-19] MEDS ORDERED: BETA15CR4 TP (12:52)
[2022-01-19] MEDS ORDERED: GLUC-174 PO (12:52)
[2022-01-19] MEDS ORDERED: MTP100TCR PO (12:52)
[2022-01-19] MEDS ORDERED: TRM50T PO (12:52)
[2022-01-19] MEDS ORDERED: ROSU20TA32 PO (12:52)
[2022-01-19] MEDS ORDERED: POTA99CA PO (12:52)
[2022-01-19] MEDS ORDERED: VIT1CAPS40 PO (12:52)
[2022-01-19] MEDS ORDERED: ASCO-262 PO (12:52)
[2022-01-19] MEDS ORDERED: FERR324T22 PO (12:52)
[2022-01-19] MEDS ORDERED: CETI10TA17 PO (12:52)
[2022-01-19] MEDS ORDERED: [UNRECOGNIZED DRUG - REMARK] PO (12:52)
[2022-01-19] MEDS ORDERED: MAGIC MOUTHWASH (12:52)
[2022-01-19] MEDS ORDERED: ACET325C7 PO (12:52)
[2022-01-19] MEDS ORDERED: DIPH1TAB PO (12:52)
[2022-01-19] MEDS ORDERED: MULT-1136 PO (12:56)
== END 2022-01-18 | disposition home or self-care (01) ==
LOC: ONC 11:32
PROVIDERS: ATTEND Radiology Radiation Oncology
DX: C19 Malignant neoplasm of rectosigmoid junction (principal); I10 Essential (primary) hypertension; E78.2 Mixed hyperlipidemia; I25.10 Atherosclerotic heart disease of native coronary artery without angina pectoris
CPT/HCPCS: 99213

== ENCOUNTER → 2021-12-25 | Outpatient (CLI) | payer MEDICARE, OTHER | LOC: RT 13:00 | PROVIDERS: ATTEND Nurse Practitioner Family | DX: J30.9 Allergic rhinitis, unspecified (principal) | CPT/HCPCS: 94060; 94726; 94729 ==

== ENCOUNTER 2022-01-11 08:11 | Inpatient (IN) | payer MEDICARE, OTHER ==
[~2022-01-11] VITALS: Ht 167.7 cm; Wt 94.6 kg
[2022-01-19] MEDS ORDERED: VIT1CAPS40 PO (12:52)
[2022-01-19] MEDS ORDERED: ACET-704 PO (12:52)
[2022-01-19] MEDS ORDERED: ASPI-1238 PO (12:52)
[2022-01-19] MEDS ORDERED: OMG1KC PO (12:52)
[2022-01-19] MEDS ORDERED: MTP100TCR PO (12:52)
[2022-01-19] MEDS ORDERED: MONT-40 PO (12:52)
[2022-01-19] MEDS ORDERED: LOPE-175 PO (12:52)
[2022-01-19] MEDS ORDERED: DIPH1TAB PO (12:52)
[2022-01-19] MEDS ORDERED: UBID100C17 PO (12:52)
[2022-01-19] MEDS ORDERED: TMSL.4C PO (12:52)
[2022-01-19] MEDS ORDERED: POTA99CA PO (12:52)
[2022-01-19] MEDS ORDERED: ROSU20TA32 PO (12:52)
[2022-01-19] MEDS ORDERED: MAGIC MOUTHWASH (12:52)
[2022-01-19] MEDS ORDERED: GLUC-174 PO (12:52)
[2022-01-19] MEDS ORDERED: ASCO-262 PO (12:52)
[2022-01-19] MEDS ORDERED: TRM50T PO (12:52)
[2022-01-19] MEDS ORDERED: RESV250C2 PO (12:52)
[2022-01-19] MEDS ORDERED: BETA15CR4 TP (12:52)
[2022-01-19] MEDS ORDERED: [UNRECOGNIZED DRUG - REMARK] PO (12:52)
[2022-01-19] MEDS ORDERED: PANT40TA52 PO (12:52)
[2022-01-19] MEDS ORDERED: FERR324T22 PO (12:52)
[2022-01-19] MEDS ORDERED: BACI28.4 TP (12:52)
[2022-01-19] MEDS ORDERED: CETI10TA17 PO (12:52)
[2022-01-19] MEDS ORDERED: ACET325C7 PO (12:52)
[2022-01-19] MEDS ORDERED: CHOL10004 PO (12:52)
[2022-01-19] MEDS ORDERED: [UNRECOGNIZED DRUG - OTHER] PO (12:52)
[2022-01-19] MEDS ORDERED: MULT-1136 PO (12:56)
[2022-01-19] MEDS ORDERED: BISACODYL 10 MG SUPP (DULCOLAX) PR PRN (14:15)
[2022-01-19] MEDS ORDERED: DOCUSATE SODIUM 100 MG (COLACE) CAP PO PRN (14:15)
[2022-01-19] MEDS ORDERED: diphenhydrAMINE 25 MG TAB (BENADRYL) PO PRN (14:15)
[2022-01-19] MEDS ORDERED: MELATONIN 3 MG TABLET PO PRN (14:15)
[2022-01-19] MEDS ORDERED: ALPRAZolam 0.25 MG (XANAX) TAB PO PRN (14:15)
[2022-01-19] MEDS ORDERED: NON-FORMULARY MEDICATION 1 EA EA (Betamethasone Dipropionate 1 APPLIC) TOP PRN (14:15)
[2022-01-19] MEDS ORDERED: LOPERAMIDE 2 MG (IMODIUM) TABLET PO PRN (14:15)
[2022-01-19] MEDS ORDERED: LACTULOSE SYRUP 10GM/15ML (ENULOSE) 30ML UDC PO PRN (14:15)
[2022-01-19] MEDS ORDERED: guaiFENesin/CODEINE (ROBITUSSIN AC) 10ML UDC PO PRN (14:15)
[2022-01-19] MEDS ORDERED: ACETAMINOPHEN 325 MG TABLET PO PRN ×2 (14:15→17:00)
[2022-01-19] MEDS ORDERED: CALCIUM CARBONATE 500 MG (TUMS) TAB.CHEW PO PRN (14:15)
[2022-01-19] MEDS ORDERED: FLEET ENEMA ADULT 1 EA BTL PR PRN (14:15)
[2022-01-19] MEDS ORDERED: ONDANSETRON 4 MG (ZOFRAN) ORAL DISSOLVE TAB PO PRN (14:15)
[2022-01-19 15:00] VITALS: BP 130/60
--- NOTE | 2022-01-19 15:20 | Physical Therapy Evaluation ---
PT Evaluation-General Medical Diagnosis Admission Date Jan 19, 2022 at 13:58 Medical Diagnosis: RECTAL CANCER S/P RESECTION WITH DIVERTING LOOP ILEOSTOMY Onset Date: Jan 06, 2022 Therapy Diagnosis Therapy Diagnosis: impaired mobility Precautions Precautions/Isolations: Fall Prevention, Standard Precautions Medical History Pertinent Medical History: HTN Reviewed History: Yes Social History Home: Single Level Current Living Status: Spouse Entry Into Home: Stairs With Railing PT Steps Into Home: 3 Prior Prior Level of Function SCALE: Activities may be completed with or without assistive devices. 0-Puyiuxeqpy-tscmiey completes the activity by him/herself with no assistance from a helper. 5-Set-up or Clean-up Assistance-helper sets up or cleans up; patient completes activity. Bryan assists only prior to or following the activity. 4-Supervision or Touching Assistance-helper provides verbal cues and/or touchin g/steadying and/or contact guard assistance as patient completes activity. Assistance may be provided throughout the activity or intermittently. 3-Partial/Moderate Assistance-helper does LESS THAN HALF the effort. Bryan lifts, holds or supports trunk or limbs, but provides less than half the effort. 2-Substantial/Maximal Assistance-helper does MORE THAN HALF the effort. Bryan lifts or holds trunk or limbs and provides more than half the effort. 4-Hmjqyrabe-oppvho does ALL the effort. Patient does none of the effort to complete the activity. Or, the assistance of 2 or more helpers is required for the patient to complete the activity. If activity was not attempted, code reason: 7-Patient Refused. 9-Not Applicable-not attempted and the patient did not perform the activity before the current illness, exacerbation or injury. 10-Not Attempted due to Environmental Limitations-(lack of equipment, weather restraints, etc.). 88-Not Attempted due to Medical Conditions or Safety Concerns. Bed Mobility: 6 Transfers (B,C,W/C): 6 Gait: 6 Stairs: 6 Indoor Mobility (Ambulation): Independent Stairs: Independent Patient uses a SPC at home PT Evaluation-Current Subjective Patient arrives via family transport. Patient has discomfort from a blister on his bottom. Will be co-treating with OT due to poor patient mobility, strength, endurance, increased fatigue from travel, coordinate UE and LE with activity, safety and reduce risk of falls. Pt/Family Goals to be independent at home Objective Patient Orientation: Person, Place, Situation ROM/Strength ROM Lower Extremities WNL Strength Lower Extremities LLE (hip flexion 3+/5, knee flexion 4+/5, knee extension 4+/5, dorsiflexion 4+/5), RLE (hip flexion 3+/5, knee flexion 4+/5, knee extension 4+/5, raciel siflexion 4+/5) Sensory Vision: Wears Glasses Hearing: Impaired Sensation Right Lower Extremit: Intact Sensation Left Lower Extremity: Intact Transfers Roll Left & Right (QC): 6 Sit to Lying (QC): 6 Lying to Sitting/Side of Bed(Q: 6 Sit to Stand (QC): 4 Chair/Frn-sm-Nlwif Xfer(QC): 4 Toilet Transfer (QC): 4 Car Transfer (QC): 4 Patient performs rolling and supine <-> sit with independence, sit <-> stand and transfers SBA, car transfer SBA. Patient needs occasional cues for direction or safety. Gait Does the Patient Walk?: Yes Mode of Locomotion: Walk Anticipated Mode of Locomotion: Walk Walk 10 feet (QC): 4 Walk 50 ft with 2 Turns(QC): 4 Walk 150 ft (QC): 4 Walking 10ft/uneven surface-QC: 4 Distance: 300'x2, 120' Gait Assistive Device: FWW Comments/Gait Description Patient can ambulate 300' with a rolling walker with SBA (including 50' with at least 2 turns of 90 degrees and 10' over an uneven surface), gait is fairly brisk and steady Wheelchair Training Does the Pt Use a Wheelchair?: No Wheel 50 ft with 2 turns (QC): 9 Wheel 150 ft (QC): 9 Stairs #of Steps: 4 1 Step (curb) (QC): 4 4 Steps (QC): 4 12 Steps (QC): 88 Patient can go up and down 4 steps using 2 handrails with SBA Balance Sitting Static: Normal Sitting Dynamic: Normal Standing Static: Good Standing Dynamic: Fair Picking up an Object (QC): 4 (SBA with press tender incendiary grenade) Special Test Comments Patient scored 25/28 on the Tinetti Assessment Tool. Treatment Patient performs a walking activity where he had to find objects, scan, turn, reach. He also performed some ADL's in his restroom. PT performed bed mobility and transfers, ambulation, stair training, gait training during jules reaching activity, standing and safety during ADL's, OT performed some dressing, ADL's, hallway ambulating reaching activity, UE positioning and safety during activity. Assessment/Needs Patient in recliner post tx with nurse call, phone, tray, all needs met. Patient has impaired mobility, strength, endurance, balance. Just needs SBA for transfers and ambulation. Rehab Potential: Fair PT Short Term Goals Short Term Goals Time Frame: Jan 26, 2022 Roll Left & Right: 6 Sit to lyin Lying to sitting on side of be: 6 Sit to stand: 5 Chair/dtb-ey-kqkux transfer: 5 Walk 10 feet: 5 Walk 50 feet with two turns: 5 Walk 150 feet: 5 PT Residential Goals Residential Goals PT Residential Goals Time Frame: Feb 09, 2022 Roll Left & Right (QC): 6 Sit to Lying (QC): 6 Lying-Sitting on Side/Bed(QC): 6 Sit to Stand (QC): 6 Chair/Pll-qf-Rasvm Xfer(QC): 6 Toilet Transfer (QC): 6 Car Transfer (QC): 6 Does the Patient Walk: Yes Walk 10 feet (QC): 6 Walk 50ft with 2 Turns (QC): 6 Walk 150 ft (QC): 6 Walking 10ft on Uneven Surface: 6 1 Step (curb) (QC): 6 4 Steps (QC): 6 12 Steps (QC): 6 Picking up an Object (QC): 6 Wheel 50 feet with 2 turns (QC: 9 Wheel 150 feet: 9 PT Plan Problem List Problem List: Activity Tolerance, Functional Strength, Safety, Balance, Gait, Transfer, ROM Treatment/Plan Treatment Plan: Continue Plan of Care Treatment Plan: Education, Functional Activity Amuricio, Functional Strength, Group Therapy, Gait, Safety, Therapeutic Exercise, Transfers Treatment Duration: Feb 09, 2022 Frequency: At least 5 of 7 days/Wk (IRF) Estimated Hrs Per Day: 1.5 hours per day Patient and/or Family Agrees t: Yes Safety Risks/Education Patient Education: Gait Training, Transfer Techniques, Steps, Correct Positioning, Safety Issues Teaching Recipient: Patient Teaching Methods: Demonstration, Discussion Response to Teaching: Reinforcement Needed Discharge Recommendations Plan Patient will perform bed mobility and transfer training, balance and endurance training, functional strengthening, stair training, gait training, and education, to improve functional mobility and independence at home. Therapy Discharge Recommendati: Home & Family, Post Acute PT Time/GCodes Time In: 1350 Time Out: 1525 Total Billed Treatment Time: 90 Total Billed Treatment 1 visit EVM 10' FA 80' PT eval from [id number], OT eval from [id number], co-treating from [id number] MARIAMA SHEPHERD PT Jan 19, 2022 15:20
--- NOTE | 2022-01-19 15:22 | Occupational Therapy Eval ---
OT Evaluation-General/PLF Medical Diagnosis Admission Date Jan 19, 2022 at 13:58 Medical Diagnosis: rectal cancer, s/p Robot Assisted LAR w/diverting loop ileostomy Onset Date: Jan 06, 2022 Therapy Diagnosis Therapy Diagnosis: reduced endurance, strength Precautions Precautions/Isolations: Fall Prevention, Standard Precautions Referral Physician: Jacque Referral Reason: Evaluation/Treatment Medical History Pertinent Medical History: HTN Additional Medical History rectal adenocarcinoma Current History 01/06/22 Robot assisted low anterior resection, diverting loop ileostomy Pt reports living with his in a single story home. He was indep with adls (except socks/shoes) and his managed most of the iadls. (Pt able to make h is own breakfast and lunch). He was using a cane at baseline or reports "furniture walking." Pt works ~35 hours/week at his [employer]. Reviewed History: Yes Social History Home: Single Level Current Living Status: Spouse Entry Into Home: Stairs With Railing Steps Into Home: 3 ADL-Prior Level of Function SCALE: Activities may be completed with or without assistive devices. 2-Gtwzlqujcn-wteyqlj completes the activity by him/herself with no assistance from a helper. 5-Set-up or Clean-up Assistance-helper sets up or cleans up; patient completes activity. [place] assists only prior to or following the activity. 4-Supervision or Touching Assistance-helper provides verbal cues and/or touching/steadying and/or contact guard assistance as patient completes activity. Assistance may be provided throughout the activity or intermittently. 3-Partial/Moderate Assistance-helper does LESS THAN HALF the effort. [place] lifts, holds or supports trunk or limbs, but provides less than half the effort. 2-Substantial/Maximal Assistance-helper does MORE THAN HALF the effort. [place] lifts or holds trunk or limbs and provides more than half the effort. 2-Dhabmdqii-ljkhew does ALL the effort. Patient does none of the effort to complete the activity. Or, the assistance of 2 or more helpers is required for the patient to complete the activity. If activity was not attempted, code reason: 7-Patient Refused. 9-Not Applicable-not attempted and the patient did not perform the activity before the current illness, exacerbation or injury. 10-Not Attempted due to Environmental Limitations-(lack of equipment, weather restraints, etc.). 88-Not Attempted due to Medical Conditions or Safety Concerns. Self Care: Needed Some Help Functional Cognition: Independent DME/Equipment: Bath Bench (owns but was not using ), Tub/Shower Drive Self: No OT Current Status Subjective Pt reports pain in tailbone from blister. No numerical value given. Co-treat with PT for part of treatment secondary to poor endurance, increased fatigue from travel, and poor mobility. Appearance Pt left sitting in recliner, all needs within reach at therapy departure. 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 Pt ambulated ~400 feet with SBA and use of walker. When using a cane, mild unsteadiness and zigzagging observed. Pt requesting to defer use of cane until LE strength improves. Pt already dressed for the day,however was willing to demonstrate LB dressing for assessment purposes. He was able to thread BLE's into LB clothing without physical assistance. He reports that he uses a security assurance specialist when threading feet into underwear at baseline. He stood to manage over hips with supervision for safety. Pt refuses to demonstrate ability to don/doff socks as he verbalizes that he does not do it at home. Pt declines learning how to use AE as he reports that his will continue to perform task for him post discharge. He independently stood and completed oral care, shaving, and face washing. No unsteadiness observed. Pt does need intermittent cues for walker placement during adls and transfers. Other Treatments Pt walked through halls to retrieve cards placed at different heights. Focus on improving higher level balance, endurance, functional reaching, and safety needed for adls and functional transfers. Good safety observed when reaching out of JACQUES. Min verbal cues for improved body mechanics and to use legs vs back when reaching below hip level. Appears to tolerate activity well. 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 2=Patient will verbalize/demonstrate understanding of assistive devices/modifications for ADL. 3=Patient will improve strength/tolerance for activity to enable patient to perform ADL's. OT Education/Plan Problem List/Assessment Assessment: Decreased Activ Tolerance, Decreased Safety Aware, Decreased UE Strength, Impaired Funct Balance, Impaired I ADL's, Impaired Self-Care Skills Discharge Recommendations Plan/Recommendations: Continue POC Therapy Discharge Recommendati: Home & Family, Post Acute OT (home health ) Treatment Plan/Plan of Care Treatment,Training & Education: Yes Patient would benefit from OT for education, treatment and training to promote independence in ADL's, mobility, safety and/or upper extremity function for ADL's. Plan of Care: ADL Retraining, Caregiver Training, Cognitive Retraining, Concurrent Therapy, Functional Mobility, Group Exercise/Act as Ind, UE Funct Exercise/Act Treatment Duration: Jan 29, 2022 Frequency: At least 5 of 7 days/Wk (IRF) Estimated Hrs Per Day: 1.5 hours per day (75-90 min/day ) Agreement: Yes Rehab Potential: Good Time/GCodes Start Time: 13:55 Stop Time: 15:25 Total Time Billed (hr/min): 90 Billed Treatment Time 1 visit EVL (10 min) ADL x3 (45 min) FA x2 (35 min) Umu Barney OT Jan 19, 2022 15:22
[2022-01-19] MEDS ORDERED: MAGIC MOUTHWASH SCH (17:00)
[2022-01-19] MEDS: LOPERAMIDE 2 MG (IMODIUM) TABLET PO SCH ×2 (17:17→20:48)
[2022-01-19] MEDS: DOCUSATE SODIUM 100 MG (COLACE) CAP PO SCH (19:29)
[2022-01-19] MEDS: polyethylene glycoL POWDER 17 GM (MIRALAX) PACK PO SCH (19:30)
[2022-01-19] MEDS: SENNA W/DOCUSATE (SENOKOT S) TABLET PO SCH (19:30)
[2022-01-19] MEDS: OMEGA 3 (FISH OIL) 1000 MG CAP PO SCH (20:48)
[2022-01-19] MEDS: BACITRACIN OINTMENT 28 GM TUBE TP SCH (20:49)
[2022-01-19] MEDS: DIPHENOXYLATE/ATROPINE 2.5MG/0.025MG (LOMOTIL) TAB PO SCH (20:49)
[2022-01-19 20:53] VITALS: BP 140/69
[2022-01-19] MEDS ORDERED: NON-FORMULARY MEDICATION 1 EA EA (Potassium Citrate (Potassium) 99 MG) PO SCH (21:00)
[2022-01-19] MEDS ORDERED: [UNRECOGNIZED DRUG - OTHER] PO SCH (21:00)
[2022-01-19] MEDS ORDERED: [UNRECOGNIZED DRUG - REMARK] PO SCH (21:00)
--- NOTE | 2022-01-19 22:11 | PM&R Post Admission Assessment ---
PM&R HP Date of Visit: Jan 19, 2022 Time of Visit: 14:30 History of Present Illness CC: Myopathy HPI: This is an 86 yr old pt of Dr. Rico with a history of rectal adenocarcinoma status post robotic assisted low anterior resection with diverting loop ileostomy. Pt presented for severe weakness, variable bp with orthostasis, and acute blood loss anemia. He previously was independent without any assisted devices. He does require help donning and doffing socks, but now he is minimum to moderate assist bed mobility only taking 2-3 steps at a time. He lives with his spouse, so we will aggressively initiate therapy in order to return back to independent living. Past Mjmglit-Jvnjdo-Eatasd Hx Past Med/Social Hx: Reviewed Nursing Past Med/Soc Hx, Reviewed and Corrections made Patient Social History Marrital Status: Employed/Student: retired Alcohol Use: Denies Use Smoking Status: Never a Smoker Recent Hopitalizations: No Seasonal Allergies Seasonal Allergies: No Past Medical History Surgeries: Abdominal, Appendectomy, Orthopedic, Tonsillectomy Cardiac: Hypertension Genitourinary: Benign Prostatic Hyperpl History of Blood Disorders: No Prior Level of Function Bed Mobility: 6 Transfers: 6 Gait: 6 Stairs: 6 Indoor Mobility (Ambulation): Independent Stairs: Independent Self Care: Needed Some Help Functional Cognition: Independent Drive Self: No Current Level of Fuctioning Roll Left to Right: 6 Sit to Lyin Lying to Sitting/Side of Bed: 6 Sit to Stand: 4 Chair/Bce-up-Qbvrz Xfer: 4 Car Transfer: 4 Does the Patient Walk: Yes Mode of Locomotion: Walk Anticipated Mode of Locomotion: Walk Walk 10 feet: 4 Walk 50 ft with 2 Turns: 4 Walk 150 ft: 4 Walking 10ft on uneven surface: 4 Gait Assistive Device: FWW Does the Pt Use a Wheelchair: No Wheel 50 ft with 2 turns: 9 Wheel 150 ft: 9 #of Steps: 4 1 Step (curb): 4 4 Steps: 4 12 Steps: 88 Picking up an Object: 4 (SBA with furniture detailer) Eatin Oral Hygiene: 6 Shower/Bathe Self: 7 Upper Body Dressin Lower Body Dressin On/Off Footwear: 1 (dependent with socks (baseline), SBA for shoes) Toileting Hygiene: 4 (SBA for urinating, anticipate education will be needed for care/management of colostomy) PM&R Allergy/Meds/Data Review Allergies Coded Allergies: albuterol (Verified Allergy, Unknown, Tachycardia , 01/19/22) aspartame (Verified Allergy, Unknown, Causes extreme brain fog per pt, 01/19/22) morphine (Verified Allergy, Unknown, 01/19/22) sucralose (Verified Allergy, Unknown, Splenda- heart racing, 01/19/22) Home Medications Scheduled Ascorbate Calcium (Vitamin C), 500 MG PO DAILY, (Reported) Aspirin (Aspirin EC), 81 MG PO DAILY, (Reported) Bacitracin (Bacitracin), 1 APPLIC TP BID, (Reported) Cetirizine HCl (Cetirizine HCl), 10 MG PO DAILY, (Reported) Cholecalciferol (Vitamin D3) (Vitamin D3), 25 MCG PO DAILY, (Reported) Diphenoxylate HCl/Atropine (Lomotil 2.5-0.025 mg Tablet), 1 EACH PO BID, (Reported) Ferrous Gluconate (Ferrous Gluconate), 162 MG PO DAILY, (Reported) Gluc/Jordan-MSM#1/C/Stalin/Wang/Bor (Osteo Bi-Flex Caplet), 1 EACH PO DAILY, (Report ed) Loperamide HCl (Imodium A-D), 4 MG PO QID, (Reported) Metoprolol Succinate (Metoprolol Succinate), 100 MG PO DAILY, (Reported) Montelukast Sodium (Montelukast Sodium), 10 MG PO DAILY, (Reported) Multivitamin (Multivitamin), 1 EACH PO DAILY, (Reported) [place] 3 Polyunsat Fatty Acids (Fish Oil 1,000 mg Capsule), 1,000 MG PO BID, (Reported) Pantoprazole Sodium (Pantoprazole Sodium), 40 MG PO DAILY, (Reported) Potassium Citrate (Potassium), 99 MG PO HS, (Reported) Resveratrol (Resveratrol), 250 MG PO DAILY, (Reported) Rosuvastatin Calcium (Rosuvastatin Calcium), 20 MG PO DAILY, (Reported) Tamsulosin HCl (Flomax), 0.8 MG PO DAILY, (Reported) Ubidecarenone (Coq-10), 100 MG PO DAILY, (Reported) Vit A/Vit C/Vit E/Zinc/Copper (Icaps Areds Softgel), 1 EACH PO DAILY, (Reported) [Richy Treeze], 1-2 EA PO HS, (Reported) [Cramp Defense Magnes], 3 EA PO HS, (Reported) [Magic Mouthwash], 10 ML TIDAC, (Reported) Scheduled PRN Acetaminophen (Tylenol), 975 MG PO Q8H PRN for PAIN-MILD (1-4), (Reported) Betamethasone Dipropionate (Betamethasone Dipropionate), 1 APPLIC TP DAILY PRN for SKIN CONDITIONS, (Reported) Tramadol HCl (Tramadol HCl), 50 MG PO Q8H PRN for PAIN-MODERATE (5-7), (Reported) Discontinued Medications Albuterol Sulfate (Albuterol Sulfate), 2.5 MG INH Q4H PRN for COUGH Discontinued Reason: Referral/FU Appt-Addtl Azithromycin (Azithromycin), 250 MG PO UD Discontinued Reason: Referral/FU Appt-Addtl Current Medications Current Medications Reviewed Review of Systems Constitutional: see HPI, malaise, weakness EENTM: no symptoms reported Respiratory: no symptoms reported Cardiovascular: no symptoms reported Gastrointestinal: diarrhea Genitourinary: no symptoms reported Musculoskeletal: back pain, joint pain Psychiatric/Neurological: No Symptoms Reported All Other Systems Reviewed Negative Unless Noted: Yes Physical Exam Physical Exam Vital Signs Vital Signs - First Documented 01/19/22 15:00 Temp 36.3 Pulse 76 Resp 18 B/P (MAP) 130/60 (83) Pulse Ox 96 O2 Delivery Room Air Capillary Refill : Height, Weight, BMI Height: '" Weight: lbs. oz. kg; 33.81 BMI Method: General Appearance: No Apparent Distress, WD/WN, Chronically ill Eyes: Bilateral Eye Normal Inspection, Bilateral Eye PERRL HEENT: PERRL/EOMI, Normal ENT Inspection, Pharynx Normal Neck: Full Range of Motion, Normal Inspection, Non Tender, Supple, Carotid Bruit Respiratory: Chest Non Tender, Lungs Clear, Normal Breath Sounds, No Accessory Muscle Use, No Respiratory Distress Cardiovascular: Regular Rate, Rhythm, No Edema, No Gallop, No JVD, No Murmur, Normal Peripheral Pulses Gastrointestinal: Normal Bowel Sounds, No Organomegaly, No Pulsatile Mass, Non Tender, Soft Back: Normal Inspection, No CVA Tenderness, No Vertebral Tenderness Extremity: Normal Capillary Refill, Normal Inspection, Normal Range of Motion, Non Tender, No Calf Tenderness, No Pedal Edema Neurologic/Psychiatric: Alert, Oriented x3, chief guard II-XII Norm as Tested, Abnormal Gait, Depressed Affect, Motor Weakness (generalized) Skin: Normal Color, Warm/Dry Lymphatic: No Adenopathy PM&R Medical Assessment & Plan REHAB/MEDICAL ASSESSMENT AND PLAN: REHAB IMPAIRMENT GROUP: Myopathy ETIOLOGIC DIAGNOSIS: Myopathy The comorbidities that impact the patients function and/or functional outcome by: advanced age, severe diarrhea, weakness, fall risk REHAB PLAN: The patient is being admitted to our comprehensive inpatient rehabilitation facility and can tolerate the intensity of service consisting of at least: 180 minutes of therapy a day, 5 out of 7 days a week Rehab treatment will consist of: PT OT will focus on regaining function in order to regain independence with use of assistive devices in order to return back to independence The patient/family has a good understanding of our discharge process and will benefit from an interdisciplinary inpatient rehabilitation program. The patient has potential to make improvement and is in need of at least two of the following multidisciplinary therapies including but not limited to physical, occupational, speech, and prosthetics and orthotics. Additionally the patient will need services from respiratory, nutritional services, wound care, psychology, etc. (Customize this to each patient). Given the patients complex condition and risk of further medical complications, rehabilitation services cannot be safely or effectively provided at a lower level of care such as a correction facility. BARRIERS TO DISCHARGE: Weakness with cancer ESTIMATED LOS: 7 days DISPOSITION: Home RELEVANT CHANGES SINCE PREADMISSION SCREENING: I have compared the patients medical and functional status at the time of the preadmission screening and there are: no changes PROGNOSIS: Good REHABILITATION GOALS: 1.PT OT will focus on regaining function in order to regain independence with use of assistive devices in order to return back to independence All the above goals were reviewed with the patient and he/she is in agreement. By signing this document, I acknowledge that I have personally performed a full physical examination on this patient within 24 hours of admission to this inpatient rehabilitation facility and have determined the patient to be able to tolerate the above course of treatment at an intensive level for a reasonable period of time. I will be completing a detailed individualized Plan of Care for this patient by day #4 of the patients stay based upon the Preadmission Screen, the Post-Admission Evaluation, and the therapy evaluations. Admission Dx/Comorbidities: (1) Colon cancer ICD Codes: C18.9 - Malignant neoplasm of colon, unspecified (2) COVID-19 mao mccallum ICD Codes: U09.9 - Post COVID-19 condition, unspecified (3) Weight loss ICD Codes: R63.4 - Abnormal weight loss (4) Advanced age ICD Codes: R54 - Age-related physical debility (5) Weakness Status: Acute ICD Codes: R53.1 - Weakness Assessment/Plan Assessment and Plan Assess & Plan/Chief Complaint Assessment: Myopathy Colon cancer resection Mao mccallum COVID symptoms Weight loss 45 pounds BPH Plan: Monitor closely Home meds IRF protocol FELIX CESAR DO Jan 19, 2022 22:11
[2022-01-20] MEDS: MULTIVIT W/MINERALS TAB (THERAGRAN M) PO SCH (06:23)
[2022-01-20 07:31] VITALS: BP 119/58
[2022-01-20 07:34] LABS: BASOPHILS % (AUTO) 1 % (0-10); EOSINOPHILS # (AUTO) 0.2 10^3/uL (0.0-0.3); EOSINOPHILS % (AUTO) 3 % (0-10); HEMATOCRIT 33 % (40-54); LYMPHOCYTES # (AUTO) 0.9 10^3/uL (1.0-4.0); LYMPHOCYTES % (AUTO) 14 % (12-44); MEAN CORPUSCULAR HEMOGLOBIN 32 pg (25-34); MEAN CORPUSCULAR HGB CONC 33 g/dL (32-36); MEAN CORPUSCULAR VOLUME 97 fL (80-99); MEAN PLATELET VOLUME 9.4 fL (9.0-12.2); MONOCYTES # (AUTO) 1.1 10^3/uL (0.0-1.0); MONOCYTES % (AUTO) 17 % (0-12); NEUTROPHILS # (AUTO) 4.2 10^3/uL (1.8-7.8); NEUTROPHILS % (AUTO) 65 % (42-75); PLATELET COUNT 293 10^3/uL (130-400); WHITE BLOOD COUNT 6.4 10^3/uL (4.3-11.0)
[2022-01-20 07:46] LABS: POTASSIUM 3.7 MMOL/L (3.6-5.0)
[2022-01-20 07:50] LABS: BILIRUBIN,TOTAL 0.5 MG/DL (0.1-1.0)
[2022-01-20] MEDS ORDERED: MAGIC MOUTHWASH PO SCH ×4 (07:51→12:00)
[2022-01-20 07:52] LABS: CREATININE SERUM 0.8 MG/DL (0.60-1.30)
[2022-01-20] MEDS: ASPIRIN E.C. 81 MG (ECOTRIN) TAB PO SCH (08:18)
[2022-01-20] MEDS: OMEGA 3 (FISH OIL) 1000 MG CAP PO SCH ×2 (08:18→20:18)
[2022-01-20] MEDS: MONTELUKAST 10 MG (SINGULAIR) TAB PO SCH ×2 (08:19→20:18)
[2022-01-20] MEDS: PANTOPRAZOLE 40 MG (PROTONIX) TAB PO SCH (08:19)
[2022-01-20] MEDS: LORATADINE (CLARITIN) 10 MG TAB PO SCH (08:19)
[2022-01-20] MEDS: DIPHENOXYLATE/ATROPINE 2.5MG/0.025MG (LOMOTIL) TAB PO SCH ×2 (08:19→20:18)
[2022-01-20] MEDS: meTOprolol SUCCINATE 100 MG (TOPROL XL) TAB PO SCH (08:19)
[2022-01-20] MEDS: ROSUVASTATIN 20 MG (CRESTOR) TABLET PO SCH (08:19)
[2022-01-20] MEDS: ASCORBIC ACID (VIT C) 500 MG TABLET PO SCH (08:19)
[2022-01-20] MEDS: VITAMIN D3 25 MCG (1,000 UNITS) TABLET PO SCH (08:19)
[2022-01-20] MEDS: LOPERAMIDE 2 MG (IMODIUM) TABLET PO SCH ×4 (08:20→20:18)
[2022-01-20] MEDS: SENNA W/DOCUSATE (SENOKOT S) TABLET PO SCH ×2 (08:20→21:00)
[2022-01-20] MEDS: polyethylene glycoL POWDER 17 GM (MIRALAX) PACK PO SCH ×2 (08:20→21:00)
[2022-01-20] MEDS: BACITRACIN OINTMENT 28 GM TUBE TP SCH ×2 (08:20→20:18)
[2022-01-20] MEDS: DOCUSATE SODIUM 100 MG (COLACE) CAP PO SCH ×2 (08:21→21:00)
[2022-01-20] MEDS: FERROUS SULF 325 MG (IRON) TAB PO SCH (08:24)
[2022-01-20] MEDS: LIDOCAINE 4% (SALONPAS) PATCH TOP SCH (08:25)
[2022-01-20] MEDS: PRESERVISION AREDS SOFTGEL (BAUSH & LOMB) PO SCH (08:31)
[2022-01-20] MEDS ORDERED: TAMSULOSIN 0.4 MG (FLOMAX) CAP PO SCH (09:00)
[2022-01-20] MEDS ORDERED: RESVERATROL 250 MG PO SCH (09:00)
--- NOTE | 2022-01-20 09:07 | Physical Therapy Daily Note ---
PT Daily Note-Current Subjective Pt siting in recliner upon arrival. Pt agrees to PT. Nurse & Med Student checked on pt during tx, morning meds given. Mental Status Patient Orientation: Person, Place, Time, Situation Transfers SCALE: Activities may be completed with or without assistive devices. 4-Uhtyddgbnj-kwgdsev completes the activity by him/herself with no assistance from a helper. 5-Set-up or Clean-up Assistance-helper sets up or cleans up; patient completes activity. [place] assists only prior to or following the activity. 4-Supervision or Touching Assistance-helper provides verbal cues and/or touching/steadying and/or contact guard assistance as patient completes activity. Assistance may be provided throughout the activity or intermittently. 3-Partial/Moderate Assistance-helper does LESS THAN HALF the effort. [place] lifts, holds or supports trunk or limbs, but provides less than half the effort. 2-Substantial/Maximal Assistance-helper does MORE THAN HALF the effort. [place] lifts or holds trunk or limbs and provides more than half the effort. 6-Xxqjfbwde-vdnmcb does ALL the effort. Patient does none of the effort to complete the activity. Or, the assistance of 2 or more helpers is required for the patient to complete the activity. If activity was not attempted, code reason: 7-Patient Refused. 9-Not Applicable-not attempted and the patient did not perform the activity before the current illness, exacerbation or injury. 10-Not Attempted due to Environmental Limitations-(lack of equipment, weather restraints, etc.). 88-Not Attempted due to Medical Conditions or Safety Concerns. Weight Bearing Full Weight Bearing Full Weight Bearing Exercises Supine Ex: Ankle pumps, Quad Set, Glut sets, Heel Slides, Hip abd/add Supine Reps: 15 Seated Therapy Exercises: Ankle pumps, Long arc quads, Hip flexion, Hip abd/add, Glut set Seated Reps: 15 Treatments Nurse arrives to give morning meds to begin tx. AUDIO VISUAL FACILITIES ENGINEER gives explanation of ARU expectations, progress vs eval. & possible AE needed. Med Student checks on pt during tx. AUDIO VISUAL FACILITIES ENGINEER issues and reviews written HEP for Supine & Seated Ex with pt & Sp. Pt sitting in recliner at end of tx with all needs met, call light in hand. Assessment Current Status: Fair Progress Pt needs redirection at times to stay on task. PT Short Term Goals Short Term Goals Time Frame: Jan 26, 2022 Roll Left & Right: 6 Sit to lyin Lying to sitting on side of be: 6 Sit to stand: 5 Chair/wdc-nr-ocwmj transfer: 5 Walk 10 feet: 5 Walk 50 feet with two turns: 5 Walk 150 feet: 5 PT Entry Level Finance Goals Entry Level Finance Goals PT Entry Level Finance Goals Time Frame: Feb 09, 2022 Roll Left & Right (QC): 6 Sit to Lying (QC): 6 Lying-Sitting on Side/Bed(QC): 6 Sit to Stand (QC): 6 Chair/Lrn-qc-Jaowb Xfer(QC): 6 Toilet Transfer (QC): 6 Car Transfer (QC): 6 Does the Patient Walk: Yes Walk 10 feet (QC): 6 Walk 50ft with 2 Turns (QC): 6 Walk 150 ft (QC): 6 Walking 10ft on Uneven Surface: 6 1 Step (curb) (QC): 6 4 Steps (QC): 6 12 Steps (QC): 6 Picking up an Object (QC): 6 Wheel 50 feet with 2 turns (QC: 9 Wheel 150 feet: 9 PT Plan Problem List Problem List: Activity Tolerance, Gait Treatment/Plan Treatment Plan: Continue Plan of Care Treatment Plan: Education, Functional Activity Mauricio, Functional Strength, Group Therapy, Gait, Safety, Therapeutic Exercise, Transfers Treatment Duration: Feb 09, 2022 Frequency: At least 5 of 7 days/Wk (IRF) Estimated Hrs Per Day: 1.5 hours per day Patient and/or Family Agrees t: Yes Safety Risks/Education Patient Education: Gait Training, Transfer Techniques, Issued Written HEP, Correct Positioning, Safety Issues Teaching Recipient: Patient Teaching Methods: Demonstration, Discussion Response to Teaching: Verbalize Understanding, Return Demonstration Time/GCodes Time In: 800 Time Out: 900 Total Billed Treatment Time: 60 Total Billed Treatment 1, FA x2 (30m) & Ex x2 (30m) RABIA VALENZUELA PTA Jan 20, 2022 09:07
[2022-01-20] MEDS ORDERED: LIDOCAINE PO PRN ×3 (10:15)
[2022-01-20] MEDS ORDERED: DIPHENHYDRAMINE PO PRN ×3 (10:15)
[2022-01-20] MEDS ORDERED: VISCOUS PO PRN ×3 (10:15)
[2022-01-20] MEDS ORDERED: [UNRECOGNIZED DRUG - OTHER] PO PRN ×3 (10:15)
--- NOTE | 2022-01-20 10:35 | ST Cognitive Linguistic Eval ---
Speech Evaluation-General Medical Diagnosis Rectal Cancer, s/p Robot Assisted LAR w/Diverting Loop Ileostomy Onset Date: Jan 06, 2022 Therapy Diagnosis Therapy Diagnosis: Intact Neurocognitive Skills Precautions Precautions: Fall Precautions/Isolations: Fall Prevention, Standard Precautions Referral Referring Physician: Dr. Santillan Reason for Referral: Evaluation/Treatment Medical History Pertinent Medical History: HTN Current History The patient is an 86 year old male with a past medical history significant for HTN, who presented to inpatient rehabilitation following a diagnosis of rectal adenocarcinoma status post robotic assisted low anterior resection with diverting loop ileostomy. Reviewed History: Yes Social History Current Living Status: Spouse Speech PLF-Current Status Prior Level of Function The patient denied recent or current concerns regarding his speech, language or cognition. Subjective The patient was seated upright in his recliner, awake and alert upon entrance to his room by the clinician. The patient's remains at bedside for the evaluation. The patient greeted the clinician appropriately and was agreeable to participation in the cognitive linguistic assessment. Language Eval: Auditory Comprehends Simple Yes/No Ques: Functional Indent/Objects Multiple Graham: Functional Ident/Pics in Multiple Graham: Functional Follows 1-Step Commands: Functional Follows General Conversations: Functional Language Eval: Verbal Language Completes Spontaneous Greeting: Functional Produces Auto, Serial Info: Functional Imitates Simple Words/Phrases: Functional Word Finding: Functional Requests Basic Needs: Functional States Basic Personal Info: Functional Cognitive Patient Orientation The patient was independently oriented to self, location, month, day of the week, date, and year. Objective Cognitive Domain Attention: WNL Memory: WNL Problem Solving: Functional Executive Functions: WNL Composite Severity Rating: WNL Objective Formal/Standardized Tests [facility] Mental Status Exam (UMS) Results The patient demonstrated results within normal neurocognitive limits on the provided SLUMS. Oral Motor/Speech Production The patient does not display dysarthria or apraxia of speech. The patient remains 100% intelligible in known and unknown contexts. Impression The patient demonstrated neurocognitive skills within normal limits. Speech Patient Assess Expression of Ideas/Wants: Expression (4) Understanding Verbal Content: Understands (4) Brief Interview-Mental Status: Yes Repetition of Three Words: Three (3) Temporal Orientation: Year: Correct (3) Temporal Orientation: Month: Accurate within 5 days(2) Temporal Orientation: Day: Correct (1) Recall : Wear to say "Sock": Yes, no cue required (2) Recall : Color: Yes, no cue required (2) Recall : Bed: Yes, no cue required (2) Memory/Recall Ability: Current season, That he or she is in a hsp/hsp unit Speech-Plan Treatment Plan Speech Therapy Treatment Plan: Discontinue ST Treatment Duration: Jan 20, 2022 Frequency: 1 time per week Estimated Hrs Per Day: .5 hour per day Rehab Potential: Good Safety Risks/Education Teaching Recipient: Patient, Significant Other Teaching Methods: Discussion Response to Teaching: Verbalize Understanding Education Topics Provided: Results of ANGIE, Plan of Care Time Speech Therapy Time In: 09:00 Speech Therapy Time Out: 09:16 Total Billed Time: 16 Billed Treatment Time 1, DEIDRE RODAS [facility] Jan 20, 2022 10:35
--- NOTE | 2022-01-20 10:35 | ST Dysphagia Evaluation ---
Speech Evaluation-General Medical Diagnosis Rectal Cancer, s/p Robot Assisted LAR w/Diverting Loop Ileostomy Onset Date: Jan 06, 2022 Therapy Diagnosis Therapy Diagnosis: Intermittent Odynophagia Precautions Precautions: Fall, Aspiration Precautions/Isolations: Aspiration, Fall Prevention, Standard Precautions Referral Referring Physician: Dr. Santillan Reason for Referral: Evaluation/Treatment Medical History Pertinent Medical History: HTN Current History The patient is an 86 year old male with a past medical history significant for HTN, who presented to inpatient rehabilitation following a diagnosis of rectal adenocarcinoma status post robotic assisted low anterior resection with diverting loop ileostomy. Reviewed History: Yes Social History Current Living Status: Spouse Speech PLF/Current-Dysphagia Prior Level of Function The patient reported consuming a regular diet consistency with thin liquids prior to admission. The patient reported sparse dentition, therefore, he completes slightly prolonged mastication with dry solid consistencies. Subjective The patient was seated upright in his recliner, awake and alert upon entrance to his room by the clinician. The patient's remains present at bedside. The patient greeted the clinician appropriately and was agreeable to participation in the clinical bedside swallowing evaluation. Per patient, following intubation he has experienced a "scratchy" sensation in his throat, which he localizes to the laryngeal region. Initially, the patient stated he was treated for "some fungus" with Nyastatin. As the odynophagia continued, the outside facility provided the patient with lidocaine prior to eating and drinking. Per patient, he did not care for the lidocaine as he felt like he "could not feel what he was doing." The patient denied s/s of suspected aspiration with his current P.O. intake. The patient stated, "I ate breakfast fine. After breakfast they gave me the magic mouthwash and I don't like it. I can't feel anything again." Cognitive Status Patient Orientation: Person, Place, Time, Situation Oral Motor Skills Current Food Consistancy: Regular, Thin Liquids Ability to Follow Directions: Good Oral Expression Ability: No Impairment Voice Voice Phonatory-Based Quality: Normal Voice Pitch: Normal Voice Loudness: Normal Face Facial Symmetry: Symmetrical Oral-Facial Assessment Oral-Facial Dentition: Normal Labial Seal Description: Normal Smile: Normal Puff Cheeks: Normal Lingual Protrusion: Normal Lingual ROM: Normal Lingual Strength: Normal Volitional Dry Swallow: Yes Voluntary Cough: Yes Can Clear Throat Volitionally: Yes Productive Cough: Yes Productive Throat Clear: Yes Dysphagia Evaluation Consistencies Presented: Regular, Thin Liquid The patient did not display any impairments to the oral phase of the swallow function. The patient did not display any pharyngeal impairments to the swallow function. The patient denied odynophagia at this time. Dietary Recommendations: Regular Liquid Recommendations: Thin Recommendations: - Continue a regular diet consistency with thin liquids, as tolerated. - Fully upright and alert for P.O. intake. - Small, single bites and sips. - Do not provide lidocaine prior to P.O. intake as the lidocaine will negatively impact necessary oral and pharyngeal sensation to trigger a safe swallowing response. If needed, provide lidocaine following P.O. intake for comfort. - Monitor for s/s of suspected aspiration with P.O. intake. If demonstrated, contact speech pathology. The clinician discussed the results with the patient and his significant other. Additionally, the clinician and RN discussed the patient's plan of care. Dysphagia Evaluation Summary The patient demonstrated an intact oropharyngeal swallow function. Intermittent odynophagia remains present. Speech-Plan Treatment Plan Speech Therapy Treatment Plan: Discontinue ST Treatment Duration: Jan 20, 2022 Frequency: 1 time per week Estimated Hrs Per Day: .5 hour per day Rehab Potential: Good Safety Risks/Education Teaching Recipient: Patient, Significant Other Teaching Methods: Discussion Response to Teaching: Verbalize Understanding Education Topics Provided: Results, Swallowing Strategies, S/s of Suspected Aspiration, Plan of Care Time Speech Therapy Time In: 09:16 Speech Therapy Time Out: 09:32 Total Billed Time: 16 Billed Treatment Time 1, DANIELA BRITO [facility] Jan 20, 2022 10:35
--- NOTE | 2022-01-20 10:55 | Progress Note ---
HILDA DYKES 01/20/22 1054: Progress Note CC: Myopathy HPI: Gautam Crawford is an 86y/o M who presented to inpatient rehab yesterday after being discharged from due to rectal adenocarcinoma s/p post robotic assisted low anterior resection w/ diverting loop ileostomy. Pt presented for severe weakness, variable bp with orthostasis, and acute blood loss anemia. He previously was independent without any assisted devices. He does require help donning and doffing socks, but now he is minimum to moderate assist bed mobility only taking 2-3 steps at a time. He lives with his spouse, so we will aggressively initiate therapy in order to return back to independent living. PMH: Rectal adenocarcinoma BPH HTN HLD GERD PSH: Low anterior resection w/ diverting loop ileostomy Appendectomy Tonsillectomy Rt ankle repair Kidney stone retrieval Allergies: albuterol aspartame morphine sucralose Meds: tylenol 325mg Q8h PRN, flomax 0.4mg QD, claritin 10mg QD, crestor 20mg QD, pro tonix 40mg QD, singulair 10mg QD, metoprolol succinate 100mg QD, loperamide 40mg QUD, ferrous gluconate 162mg QD, Vit D3 1000units QD, lomotil 1 tab BID, aspirin 81mg QD, bacitracin topical BID, Vit C 500mg QD SH: , retired, never a smoker, no alcohol use ROS: Gen: no fevers, chills HEENT: no vision changes, eye pain Cardiac: no chest pain or palpitations Lungs: no SOB or cough Abdomen: no N/V, mild abdominal pain : no dysuria, hematuria MSK: no muscle pains or weakness N: no numbness or tingling in extremities PE: gen: appears appropriate age, well groomed HEENT: PERRL/EOMI Cardiac: RRR, no murmur Lungs: CTAB, regular rate GI: colostomy appears viable w/ slight protrusion, abdomen soft LE: peripheral pulses intact, no cyanosis N: A&Ox3, normal mood Labs: Hgb:11 Hct:33 A&P: Myopathy -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 -currently doing PT and OT -continue PT/OT to try and rebuild strength Aectal adenocarcinoma s/p post robotic assisted low anterior resection w/ diverting loop ileostomy -done at where he was discharged from on 01/19 -continue to monitor colostomy for output and any changes to appearance Dysphagia -assessment done today, according to report he did not show any signs of impairment -possibly due to mouthwash w/ lidocaine that he was using, have D/C it -continue to monitor HTN -continue metoprolol BPH -continue flomax HLD -continue crestor Anemia -Hgb of 11 today, continue ferrous gluconate -will continue to monitor Seasonal allergies -continue claritin and singulair GERD -continue protonix DVT prophylaxis -SCDs GENA CESAR DO 01/20/222048: Supervisory-Addendum Brief Verification & Attestation Participated in pt care: history, MDM, physical Personally performed: exam, history, MDM, supervision of care Care discussed with: Medical Student Procedures: n/a Results interpretation: Verified all documentation Verification and Attestation of Medical Student E/M Service A medical student performed and documented this service in my presence. I reviewed and verified all information documented by the medical student and made modifications to such information, when appropriate. I personally performed the physical exam and medical decision making. Gena Cesar, Jan 20, 2022,20:49 HILDA DYKES Jan 20, 2022 10:54 GENA CESAR DO Jan 20, 2022 20:49
--- NOTE | 2022-01-20 11:28 | Occupational Ther Daily Note ---
OT Current Status-Daily Note Subjective Pt alert, sitting in recliner. Pt agrees to therapy. No c/o pain at this time. Mental Status/Objective Patient Orientation: Person, Place, Time, Situation Attachments: Colostomy/Ileostomy ADL-Treatment Pt agrees to shower. assists with gathering clothing though pt is able to citrus picker clothing without stabilization from FWW and take to bathroom. Pt req uires assist to complete ostomy care, voiding independently. Pt able to doff clothing in standing without LOB, using grabbars to step out of pants while standing. Pt stands 90% of the time in shower using grabbars and hand held shower, no LOB noted, SBA for safety. Pt able to complete upper body dressing by self. SBA to thread clothing over feet due to standing while doing this and stabilizing with FWW. HEBERT educated pt that it is more safe to sit to thread pants over feet, pt stated that is the way he usually does it. dons/doffs socks at baseline. Pt dons/doff shoes by self, uses LH shoehorn to don. Standing at sink, pt able to complete oral care without stabilization from sink or FWW. Therapy Code Descriptions/Definitions Functional [place] Measure: 0=Not Assessed/NA 4=Minimal Assistance 1=Total Assistance 5=Supervision or Setup 2=Maximal Assistance 6=Modified [place] 3=Moderate Assistance 7=Complete IndependenceSCALE: Activities may be completed with or without assistive devices. 4-Jbtkxamuzx-ysygzti completes the activity by him/herself with no assistance from a helper. 5-Set-up or Clean-up Assistance-helper sets up or cleans up; patient completes activity. [place] assists only prior to or following the activity. 4-Supervision or Touching Assistance-helper provides verbal cues and/or touching/steadying and/or contact guard assistance as patient completes activity. Assistance may be provided throughout the activity or intermittently. 3-Partial/Moderate Assistance-helper does LESS THAN HALF the effort. [place] lifts, holds or supports trunk or limbs, but provides less than half the effort. 2-Substantial/Maximal Assistance-helper does MORE THAN HALF the effort. [place] lifts or holds trunk or limbs and provides more than half the effort. 4-Krlbuqrby-jrnpbl does ALL the effort. Patient does none of the effort to complete the activity. Or, the assistance of 2 or more helpers is required for the patient to complete the activity. If activity was not attempted, code reason: 7-Patient Refused. 9-Not Applicable-not attempted and the patient did not perform the activity before the current illness, exacerbation or injury. 10-Not Attempted due to Environmental Limitations-(lack of equipment, weather restraints, etc.). 88-Not Attempted due to Medical Conditions or Safety Concerns. Eating (QC): 6 (Per clinical judgment.) Oral Hygiene (QC): 6 Shower/Bathe Self (QC): 4 Upper Body Dressing (QC): 6 Lower Body Dressing (QC): 4 On/Off Footwear: 6 (shoes only) Toileting Hygiene (QC): 2 Toilet Transfer (QC): 6 Other Treatment Pt ambulated to therapy gym using FWW. B UE exercises completed to increase strength and dexterity for daily functional tasks. Nut/bolt task completed 2x's (taking off/putting on). Placing 1# wt on B wrists, pt completed grooved peg board to increase fine motor dexterity/coordination. Pt given medium/heavy (green) theraband and HEP to use in room. Pt was educated on each exercise though deferred to complete today due to increased fatigue of B UE's. Will follow up on pt completing and becoming proficient with theraband exercises. After therapy, pt sitting in recliner with call light/phone in reach. All needs met in room. OT Short Term Goals Short Term Goals Time Frame: Jan 23, 2022 Eatin Oral hygiene: 6 Toileting hygiene: 5 Shower/bathe self: 4 Upper body dressin Lower body dressin Putting on/taking off footwear: 5 (shoes only) OT Meteorology Professor Goals Meteorology Professor Goals Time Frame: Jan 29, 2022 Eating (QC): 6 Oral Hygiene (QC): 6 Toileting Hygiene (QC): 5 (set up for colostomy) Shower/Bathe Self (QC): 5 Upper Body Dressing (QC): 6 Lower Body Dressing (QC): 6 On/Off Footwear (QC): 6 (shoes only) 1=Demonstrate adherence to instructed precautions during ADL tasks. 2=Patient will verbalize/demonstrate understanding of assistive devices/modifications for ADL. 3=Patient will improve strength/tolerance for activity to enable patient to perform ADL's. OT Education/Plan Problem List/Assessment Assessment: Decreased Activ Tolerance, Decreased UE Strength, Impaired Funct Balance Discharge Recommendations Plan/Recommendations: Continue POC Treatment Plan/Plan of Care Patient would benefit from OT for education, treatment and training to promote independence in ADL's, mobility, safety and/or upper extremity function for ADL's. Plan of Care: ADL Retraining, Caregiver Training, Cognitive Retraining, Concurrent Therapy, Functional Mobility, Group Exercise/Act as Ind, UE Funct Exercise/Act Treatment Duration: Jan 29, 2022 Frequency: At least 5 of 7 days/Wk (IRF) Estimated Hrs Per Day: 1.5 hours per day (75-90 min/day ) Agreement: Yes Rehab Potential: Good Time/GCodes Start Time: 10:00 Stop Time: 11:15 Total Time Billed (hr/min): 75 Billed Treatment Time 1 visit-ADL 4 (55 min) EX 1 (20 min) SILVERIO PAL Jan 20, 2022 11:28
--- NOTE | 2022-01-20 15:15 | Physical Therapy Daily Note ---
PT Daily Note-Current Subjective Pt sitting in recliner visiting w/Sp upon arrival. Pt agrees to walk with WASH TEST CHECKER. Mental Status Patient Orientation: Person, Place, Time, Situation Attachments: Colostomy/Ileostomy Transfers SCALE: Activities may be completed with or without assistive devices. 2-Imorotifyd-wilenza completes the activity by him/herself with no assistance from a helper. 5-Set-up or Clean-up Assistance-helper sets up or cleans up; patient completes activity. [place] assists only prior to or following the activity. 4-Supervision or Touching Assistance-helper provides verbal cues and/or touching/steadying and/or contact guard assistance as patient completes activity. Assistance may be provided throughout the activity or intermittently. 3-Partial/Moderate Assistance-helper does LESS THAN HALF the effort. [place] lifts, holds or supports trunk or limbs, but provides less than half the effort. 2-Substantial/Maximal Assistance-helper does MORE THAN HALF the effort. [place] lifts or holds trunk or limbs and provides more than half the effort. 0-Ifuuimjqd-dcrafz does ALL the effort. Patient does none of the effort to complete the activity. Or, the assistance of 2 or more helpers is required for the patient to complete the activity. If activity was not attempted, code reason: 7-Patient Refused. 9-Not Applicable-not attempted and the patient did not perform the activity bef ore the current illness, exacerbation or injury. 10-Not Attempted due to Environmental Limitations-(lack of equipment, weather r estraints, etc.). 88-Not Attempted due to Medical Conditions or Safety Concerns. Sit to Stand (QC): 5 Weight Bearing Full Weight Bearing Full Weight Bearing Gait Training Does the Patient Walk?: Yes Distance: 250', 150' Walk 10 feet (QC): 5 Walk 50 ft with 2 Turns(QC): 5 Walk 150 ft (QC): 5 Gait Persons Needed: 1 Gait Assistive Device: FWW Treatments TF to standing and amb. in hallway before returning to room to rest in recliner. All needs met, call light in hand. Assessment Current Status: Good Progress Pt is gaining jose daniel/speed with improved body control. PT Short Term Goals Short Term Goals Time Frame: Jan 26, 2022 Roll Left & Right: 6 Sit to lyin Lying to sitting on side of be: 6 Sit to stand: 5 Chair/vfg-dn-vvihy transfer: 5 Walk 10 feet: 5 Walk 50 feet with two turns: 5 Walk 150 feet: 5 PT Nurse Technician Goals [facility] Goals PT Nurse Technician Goals Time Frame: Feb 09, 2022 Roll Left & Right (QC): 6 Sit to Lying (QC): 6 Lying-Sitting on Side/Bed(QC): 6 Sit to Stand (QC): 6 Chair/Vjr-qm-Vnefl Xfer(QC): 6 Toilet Transfer (QC): 6 Car Transfer (QC): 6 Does the Patient Walk: Yes Walk 10 feet (QC): 6 Walk 50ft with 2 Turns (QC): 6 Walk 150 ft (QC): 6 Walking 10ft on Uneven Surface: 6 1 Step (curb) (QC): 6 4 Steps (QC): 6 12 Steps (QC): 6 Picking up an Object (QC): 6 Wheel 50 feet with 2 turns (QC: 9 Wheel 150 feet: 9 PT Plan Problem List Problem List: Activity Tolerance Treatment/Plan Treatment Plan: Continue Plan of Care Treatment Plan: Education, Functional Activity Mauricio, Functional Strength, Group Therapy, Gait, Safety, Therapeutic Exercise, Transfers Treatment Duration: Feb 09, 2022 Frequency: At least 5 of 7 days/Wk (IRF) Estimated Hrs Per Day: 1.5 hours per day Patient and/or Family Agrees t: Yes Time/GCodes Time In: 1400 Time Out: 1415 Total Billed Treatment Time: 15 Total Billed Treatment 1, GT (15m) RABIA VALENZUELA WASH TEST CHECKER Jan 20, 2022 15:15
[2022-01-20 20:00] VITALS: BP 133/63
--- NOTE | 2022-01-20 20:30 | PM&R Progress Note ---
Subjective HPI/CC On Admission Date Seen by Provider: Jan 20, 2022 Time Seen by Provider: 10:00 Subjective/Events-last exam 01/20/2022: Doing better Ileostomy functioning well Gaining strength Slept better last night Labs reviewed No pain Review of Systems General: Fatigue, Malaise Objective Exam Vital Signs Vital Signs Date Time Temp Pulse Resp B/P (MAP) Pulse Ox O2 Delivery O2 Flow Rate FiO2 01/20/22 09:00 Room Air 01/20/22 07:31 36.3 80 16 119/58 (78) 96 Capillary Refill : General Appearance: No Apparent Distress, WD/WN, Chronically ill HEENT: PERRL/EOMI, Normal ENT Inspection, Pharynx Normal Neck: Full Range of Motion, Normal Inspection, Non Tender, Supple, Carotid Bruit Respiratory: Chest Non Tender, Lungs Clear, Normal Breath Sounds, No Accessory Muscle Use, No Respiratory Distress Cardiovascular: Regular Rate, Rhythm, No Edema, No Gallop, No JVD, No Murmur, Normal Peripheral Pulses Gastrointestinal: Normal Bowel Sounds, No Organomegaly, No Pulsatile Mass, Non Tender, Soft Back: Normal Inspection, No CVA Tenderness, No Vertebral Tenderness Extremity: Normal Capillary Refill, Normal Inspection, Normal Range of Motion, Non Tender, No Calf Tenderness, No Pedal Edema Neurologic/Psychiatric: Alert, Oriented x3, hr operations advisor II-XII Norm as Tested, Abnormal Gait, Depressed Affect, Motor Weakness (generalized) Skin: Normal Color, Warm/Dry Lymphatic: No Adenopathy Results/Procedures Lab Laboratory Tests 01/20/22 05:28 Patient resulted labs reviewed. FIM Transfers Therapy Code Descriptions/Definitions Functional [place] Measure: 0=Not Assessed/NA 4=Minimal Assistance 1=Total Assistance 5=Supervision or Setup 2=Maximal Assistance 6=Modified [place] 3=Moderate Assistance 7=Complete IndependenceSCALE: Activities may be completed with or without assistive devices. 5-Gklrxkmopc-eiawwli completes the activity by him/herself with no assistance from a helper. 5-Set-up or Clean-up Assistance-helper sets up or cleans up; patient completes activity. [place] assists only prior to or following the activity. 4-Supervision or Touching Assistance-helper provides verbal cues and/or touching/steadying and/or contact guard assistance as patient completes activity. Assistance may be provided throughout the activity or intermittently. 3-Partial/Moderate Assistance-helper does LESS THAN HALF the effort. [place] lifts, holds or supports trunk or limbs, but provides less than half the effort. 2-Substantial/Maximal Assistance-helper does MORE THAN HALF the effort. [place] lifts or holds trunk or limbs and provides more than half the effort. 3-Mtjkotlil-hsatwj does ALL the effort. Patient does none of the effort to complete the activity. Or, the assistance of 2 or more helpers is required for the patient to complete the activity. If activity was not attempted, code reason: 7-Patient Refused. 9-Not Applicable-not attempted and the patient did not perform the activity before the current illness, exacerbation or injury. 10-Not Attempted due to Environmental Limitations-(lack of equipment, weather restraints, etc.). 88-Not Attempted due to Medical Conditions or Safety Concerns. Roll Left to Right (QC): 6 Sit to Lying (QC): 6 Sit to Stand (QC): 5 Chair/[place]-Pfaik Xfer(QC): 4 Car Transfer (QC): 4 Gait Training Does the Patient Walk?: Yes Distance: 250', 150' Walk 10 feet (QC): 5 Walk 50 ft with 2 Turns(QC): 5 Walk 150 ft (QC): 5 Walking 10ft/uneven surface-QC: 4 Gait Persons Needed: 1 Gait Assistive Device: FWW Wheelchair Training Does the Pt Use a Wheelchair?: No Wheel 50 ft with 2 turns (QC): 9 Wheel 150 ft (QC): 9 Stair Training #of Steps: 4 1 Step (curb) (QC): 4 4 Steps (QC): 4 12 Steps (QC): 88 Balance Picking up an Object (QC): 4 (SBA with applications support engineer) ADL-Treatment Eating (QC): 6 (Per clinical judgment.) Oral Hygiene (QC): 6 Shower/Bathe Self (QC): 4 Upper Body Dressing (QC): 6 Lower Body Dressing (QC): 4 On/Off Footwear (QC): 6 (shoes only) Toileting Hygiene (QC): 2 Toilet Transfer (QC): 6 Assessment/Plan Assessment and Plan Assess & Plan/Chief Complaint Assessment: Myopathy Rectal adenocarcinoma resection with ileostomy Long hauler COVID symptoms Weight loss 45 pounds BPH Anemia Plan: Monitor closely Home meds IRF protocol 01/20/2022: Monitor fluid intake Lomotil and Imodium (1) Colon cancer (2) COVID-19 long hauler (3) Weight loss (4) Advanced age (5) Weakness Status: FELIX Cleveland DO Jan 20, 2022 20:30
--- NOTE | 2022-01-20 20:32 | Individualized Plan of Care ---
Individualized Plan of Care Rehab Nursing IPOC Order Admission Date Jan 19, 2022 at 13:58 Current Orders Orders Follow-Up Appointment (01/19/22 11:09) Lifting Restrictions (01/19/22 11:09) Nursing Communication (Order) (01/19/22 11:26) Nursing Communication (Order) (01/19/22 11:26) Admission Arrival Bed Request (01/19/22 13:56) Tramadol Tablet (Ultram Tablet) (01/19/22 14:15) Lidocaine 4% Patch (Salonpas 4% Patch) (01/20/22 09:00) Aspirin Enteric Coated Tablet (Ecotrin T (01/20/22 09:00) Bacitracin Ointment (Bacitracin Ointment (01/19/22 21:00) Cholecalciferol Capsule/Tablet (Vitamin (01/20/22 09:00) Loperamide Tablet (Imodium Tablet) (01/19/22 17:00) Metoprolol Succinate (Xl) Tab (Toprol Xl (01/20/22 09:00) Montelukast Tablet (Singulair Tablet) (01/20/22 09:00) [place] 3 Capsule (Fish Oil Capsule) (01/19/22 21:00) Pantoprazole Tablet (Protonix Tablet) (01/20/22 09:00) Rosuvastatin Tablet (Crestor Tablet) (01/20/22 09:00) Tamsulosin Capsule (Flomax Capsule) (01/20/22 09:00) Tramadol Tablet (Ultram Tablet) (01/19/22 14:15) Vit A/C/E/Zinc/Co (Non-Form) (Preservisi (01/20/22 09:00) Acetaminophen Tablet/Caplet (Tylenol T (01/19/22 17:00) Ascorbic Acid Tablet (Vitamin C Tablet) (01/20/22 09:00) (Nf) Betamethasone Dipropionate (01/19/22 14:15) Ferrous Sulfate Tablet (Feosol Tablet) (01/20/22 09:00) (Nf) Gluc/Jordan-Msm#1/C/Stalin/Wang/Bor (Ost (01/20/22 09:00) Therapeutic Multivitamin Tab (Vitamins, (01/20/22 07:00) (Nf) Potassium Citrate (Potassium) (01/19/22 21:00) (Nf) Resveratrol (01/20/22 09:00) (Nf) Ubidecarenone (Coq-10) (01/20/22 09:00) (Nf) [Richy Treeze] (01/19/22 21:00) (Nf) [Cramp Defense Magnes] (01/19/22 21:00) (Nf) [Magic Mouthwash] (01/19/22 17:00) Admission Order(Inpt,Obs,Sdc) (01/19/22 14:07) Vital Signs: Per Unit Policy ( ,16, (01/19/22 14:07) Ender Hose (01/19/22 14:07) Sequential Compression Device (01/19/22 14:07) Semi Driver-Inpt Rehab Con (01/19/22 14:07) Rehab Nursing Orders-Ipoc (01/19/22 14:07) Physical Therapy Rehab Orders (01/19/22 14:07) Occupational Therapy Rehab Ord (01/19/22 14:07) Speech Therapy Rehab Orders (01/19/22 14:07) Cbc With Automated Diff (01/20/22 06:00) Comprehensive Metabolic Panel (01/20/22 06:00) Precautions (Aru) (01/19/22 14:07) Weekly Weight WEEK (01/19/22 14:07) Rehab-Intensity Of Therapy (01/19/22 14:07) Initiate Admission Nursing Pro .admission (01/19/22 14:07) Alprazolam Tablet (Xanax Tablet) (01/19/22 14:15) Calcium Carbonate Chew Tablet (Antacid C (01/19/22 14:15) Diphenhydramine Tablet (Benadryl Tablet) (01/19/22 14:15) Docusate Sodium Capsule (Colace Capsule) (01/19/22 21:00) Docusate Sodium Capsule (Colace Capsule) (01/19/22 14:15) Bisacodyl Suppository (Dulcolax Supposit (01/19/22 14:15) Lactulose Oral Solution (Enulose Oral So (01/19/22 14:15) Na Phos/Na Biphos Enema (Fleet Enema Cesar (01/19/22 14:15) Guaifenesin/Codeine Syrup (Robitussin Ac (01/19/22 14:15) Melatonin Tablet (Melatonin Tablet) (01/19/22 14:15) Polyethylene Glycol Powder Pkt (Miralax (01/19/22 21:00) Ondansetron Oral Dissolve Tab (Zofran (01/19/22 14:15) Senna S Tablet (Senokot S Tablet) (01/19/22 21:00) Acetaminophen Tablet/Caplet (Tylenol T (01/19/22 14:15) Code/Resuscitation (01/19/22 14:12) Ambulate ,12,20 (01/19/22 14:12) Sequential Compression Device ONCE (01/19/22 14:12) Initiate Admission Nursing Pro .admission (01/19/22 14:12) Isolation Central Supply Req (01/19/22 14:12) Loratadine Tablet (Claritin Tablet) (01/20/22 09:00) Patient Visit (01/19/22 ) Pt Eval Low Complexity (01/19/22 ) Functional Activities, Ea 15 (01/19/22 ) Diphenoxylate/Atropine Tablet (Lomotil T (01/19/22 21:00) General/Regular (01/19/22 Dinner) General/Regular (01/19/22 Lunch) (Nf) [Magic Mouthwash] (01/20/22 12:00) Diphenhydramine Oral Solution (Benadryl (01/20/22 07:51) Diphenhydramine Oral Solution (Benadryl (01/20/22 10:15) Patient Education (01/20/22 10:22) Tamsulosin Capsule (Flomax Capsule) (01/21/22 09:00) Patient Visit (01/20/22 ) Speech Sound Lang Comp (01/20/22 ) Treat. Speech/Lang/Voice (01/20/22 ) Dysphagia Evaluation Std (01/20/22 ) Dysphagia Therapy (01/20/22 ) Ensure Enlive (01/20/22 13:33) Patient Visit (01/20/22 ) Functional Activities, Ea 15 (01/20/22 ) Exercise Therap, Ea 15 Min (01/20/22 ) Gait Training, Ea 15 Min (01/20/22 ) Rehab Nursing Orders: Ongoing Assess. of Cognitive Status, Ongoing Assess. of Function Status, Bladder Management, Bladder Scan, Bladder Training, Bowel Management, Bowel Training, Disease Management & Educaiton, DVT Prophylaxis, Fall Prevention, Fluid/Electrolyte/Nutrition Mgmt, Infection Prevention, Medication Management & Education, Management of Risks & Complications, Management of Skin Intergrity, Nutrition Management, Pain Management, Patient/Family Support, Safety Management Intensity of Therapy to be met Patient to be seen: Min.3h per day/5 of 7d PT IPOC Problem List: Activity Tolerance Treatment Plan: Continue Plan of Care Education, Functional Activity Mauricio, Functional Strength, Group Therapy, Gait, Safety, Therapeutic Exercise, Transfers Treatment Duration: Feb 09, 2022 Frequency: At least 5 of 7 days/Wk (IRF) Estimated Hrs Per Day: 1.5 hours per day OT IPOC Problems: Decreased Activ Tolerance, Decreased UE Strength, Impaired Funct Balance OT Treatment, Training and Edu: Yes Plan of Care: ADL Retraining, Caregiver Training, Cognitive Retraining, Concurrent Therapy, Functional Mobility, Group Exercise/Act as Ind, UE Funct Exercise/Act Treatment Duration: Jan 29, 2022 Frequency: At least 5 of 7 days/Wk (IRF) Estimated Hrs Per Day: 1.5 hours per day (75-90 min/day ) ST IPOC Speech Therapy Treatment Plan: Discontinue ST Treatment Duration: Jan 20, 2022 Frequency: 1 time per week Estimated Hrs Per Day: .5 hour per day Semi Driver/Case Mgmt Semi Driver/Case Managemen: Discharge Planning Dietitian/Electronic Warfare Operator Dietitian/Electronic Warfare Operator to monitor nutritional status and make changes and/or recommendations as needed and work with speech pathology on dietary upgrades as the occur. Physician IPOC Medical Issues being managed closely and that require the 24 hour availability of a physician: Recent resection of rectal adenocarcinoma with ileostomy now with high output increasing risk for dehydration and will require close monitoring for decompensation Medical Issues: Bowel/Bladder Function, DVT Prophylaxis, Falls Precautions, Fluid/Electrolyte/Nutrition Balance, Infection Protection, Pain Management, Wound Care Brief Synthesis of Preadmission Screen, Post-Admission Evaluation, and Therapy Evaluations: PT OT will focus on regaining function in order to return to independence with use of assistive devices Medical Prognosis: Good Anticipated Length of Stay: 7 days FELIX CESAR DO Jan 20, 2022 20:32
--- NOTE | 2022-01-21 06:03 | PM&R Progress Note ---
Subjective HPI/CC On Admission Date Seen by Provider: Jan 21, 2022 Time Seen by Provider: 09:00 Subjective/Events-last exam 01/21/2022: Doing well Increased output from ileostomy 700+ so will initiate IVF KU had delayed DC due to high output Improved otherwise 01/20/2022: Doing better Ileostomy functioning well Gaining strength Slept better last night Labs reviewed No pain Review of Systems General: Fatigue, Malaise Objective Exam Vital Signs Vital Signs Date Time Temp Pulse Resp B/P (MAP) Pulse Ox O2 Delivery O2 Flow Rate FiO2 01/21/22 08:44 Room Air 01/21/22 07:36 36.6 73 18 137/63 (87) 93 Capillary Refill : General Appearance: No Apparent Distress, WD/WN, Chronically ill HEENT: PERRL/EOMI, Normal ENT Inspection, Pharynx Normal Neck: Full Range of Motion, Normal Inspection, Non Tender, Supple, Carotid Bruit Respiratory: Chest Non Tender, Lungs Clear, Normal Breath Sounds, No Accessory Muscle Use, No Respiratory Distress Cardiovascular: Regular Rate, Rhythm, No Edema, No Gallop, No JVD, No Murmur, Normal Peripheral Pulses Gastrointestinal: Normal Bowel Sounds, No Organomegaly, No Pulsatile Mass, Non Tender, Soft Back: Normal Inspection, No CVA Tenderness, No Vertebral Tenderness Extremity: Normal Capillary Refill, Normal Inspection, Normal Range of Motion, Non Tender, No Calf Tenderness, No Pedal Edema Neurologic/Psychiatric: Alert, Oriented x3, panel builder II-XII Norm as Tested, Abnormal Gait, Depressed Affect, Motor Weakness (generalized) Skin: Normal Color, Warm/Dry Lymphatic: No Adenopathy Results/Procedures Lab Patient resulted labs reviewed. FIM Transfers Therapy Code Descriptions/Definitions Functional [place] Measure: 0=Not Assessed/NA 4=Minimal Assistance 1=Total Assistance 5=Supervision or Setup 2=Maximal Assistance 6=Modified [place] 3=Moderate Assistance 7=Complete IndependenceSCALE: Activities may be completed with or without assistive devices. 7-Yzkvktuack-fnensst completes the activity by him/herself with no assistance from a helper. 5-Set-up or Clean-up Assistance-helper sets up or cleans up; patient completes activity. [place] assists only prior to or following the activity. 4-Supervision or Touching Assistance-helper provides verbal cues and/or touching/steadying and/or contact guard assistance as patient completes activity. Assistance may be provided throughout the activity or intermittently. 3-Partial/Moderate Assistance-helper does LESS THAN HALF the effort. [place] lifts, holds or supports trunk or limbs, but provides less than half the effort. 2-Substantial/Maximal Assistance-helper does MORE THAN HALF the effort. [place] lifts or holds trunk or limbs and provides more than half the effort. 8-Wntadkpzt-ihinml does ALL the effort. Patient does none of the effort to complete the activity. Or, the assistance of 2 or more helpers is required for the patient to complete the activity. If activity was not attempted, code reason: 7-Patient Refused. 9-Not Applicable-not attempted and the patient did not perform the activity before the current illness, exacerbation or injury. 10-Not Attempted due to Environmental Limitations-(lack of equipment, weather restraints, etc.). 88-Not Attempted due to Medical Conditions or Safety Concerns. Roll Left to Right (QC): 6 Sit to Lying (QC): 6 Sit to Stand (QC): 5 Chair/Dws-gf-Adfvs Xfer(QC): 4 Car Transfer (QC): 4 Gait Training Does the Patient Walk?: Yes Distance: 250', 150' Walk 10 feet (QC): 5 Walk 50 ft with 2 Turns(QC): 5 Walk 150 ft (QC): 5 Walking 10ft/uneven surface-QC: 4 Gait Persons Needed: 1 Gait Assistive Device: FWW Wheelchair Training Does the Pt Use a Wheelchair?: No Wheel 50 ft with 2 turns (QC): 9 Wheel 150 ft (QC): 9 Stair Training #of Steps: 4 1 Step (curb) (QC): 4 4 Steps (QC): 4 12 Steps (QC): 88 Balance Picking up an Object (QC): 4 (SBA with pack mule worker) ADL-Treatment Eating (QC): 6 (Per clinical judgment.) Oral Hygiene (QC): 6 Shower/Bathe Self (QC): 4 Upper Body Dressing (QC): 6 Lower Body Dressing (QC): 4 On/Off Footwear (QC): 6 (shoes only) Toileting Hygiene (QC): 2 Toilet Transfer (QC): 6 Assessment/Plan Assessment and Plan Assess & Plan/Chief Complaint Assessment: Myopathy Rectal adenocarcinoma resection with ileostomy Long hauler COVID symptoms Weight loss 45 pounds BPH Anemia Plan: Monitor closely Home meds IRF protocol 01/20/2022: Monitor fluid intake Lomotil and Imodium 01/21/2022: IVF Monitor closely (1) Colon cancer (2) COVID-19 long hauler (3) Weight loss (4) Advanced age (5) Weakness Status: Acute FELIX CESAR DO Jan 21, 2022 06:03
[2022-01-21] MEDS: MULTIVIT W/MINERALS TAB (THERAGRAN M) PO SCH (06:05)
[2022-01-21] MEDS: ASCORBIC ACID (VIT C) 500 MG TABLET PO SCH (07:35)
[2022-01-21] MEDS: OMEGA 3 (FISH OIL) 1000 MG CAP PO SCH ×2 (07:35→20:12)
[2022-01-21] MEDS: ASPIRIN E.C. 81 MG (ECOTRIN) TAB PO SCH (07:35)
[2022-01-21] MEDS: LOPERAMIDE 2 MG (IMODIUM) TABLET PO SCH ×4 (07:35→20:12)
[2022-01-21] MEDS: TAMSULOSIN 0.4 MG (FLOMAX) CAP PO SCH (07:35)
[2022-01-21 07:36] VITALS: BP 137/63
[2022-01-21] MEDS: DIPHENOXYLATE/ATROPINE 2.5MG/0.025MG (LOMOTIL) TAB PO SCH ×2 (07:36→20:12)
[2022-01-21] MEDS: LORATADINE (CLARITIN) 10 MG TAB PO SCH (07:36)
[2022-01-21] MEDS: VITAMIN D3 25 MCG (1,000 UNITS) TABLET PO SCH (07:36)
[2022-01-21] MEDS: meTOprolol SUCCINATE 100 MG (TOPROL XL) TAB PO SCH (07:36)
[2022-01-21] MEDS: FERROUS SULF 325 MG (IRON) TAB PO SCH (07:36)
[2022-01-21] MEDS: ROSUVASTATIN 20 MG (CRESTOR) TABLET PO SCH (07:36)
[2022-01-21] MEDS: PANTOPRAZOLE 40 MG (PROTONIX) TAB PO SCH (07:36)
[2022-01-21] MEDS: LIDOCAINE 4% (SALONPAS) PATCH TOP SCH (07:37)
[2022-01-21] MEDS: BACITRACIN OINTMENT 28 GM TUBE TP SCH ×2 (07:40→20:13)
--- NOTE | 2022-01-21 11:59 | Physical Therapy Daily Note ---
PT Daily Note-Current Subjective Pt. agreeable to Rx states he feels he is slowly making progress. "I've had long haul Covid you know" Pain Location: No Pain Reported Mental Status Patient Orientation: Normal For Age Attachments: Colostomy/Ileostomy Transfers SCALE: Activities may be completed with or without assistive devices. 7-Bzqyjbpkzx-cpcpsuj completes the activity by him/herself with no assistance from a helper. 5-Set-up or Clean-up Assistance-helper sets up or cleans up; patient completes activity. [place] assists only prior to or following the activity. 4-Supervision or Touching Assistance-helper provides verbal cues and/or touching/steadying and/or contact guard assistance as patient completes activit y. Assistance may be provided throughout the activity or intermittently. 3-Partial/Moderate Assistance-helper does LESS THAN HALF the effort. [place] lifts, holds or supports trunk or limbs, but provides less than half the effort. 2-Substantial/Maximal Assistance-helper does MORE THAN HALF the effort. [place] lifts or holds trunk or limbs and provides more than half the effort. 4-Mzzinnmcd-zcjsbg does ALL the effort. Patient does none of the effort to complete the activity. Or, the assistance of 2 or more helpers is required for the patient to complete the activity. If activity was not attempted, code reason: 7-Patient Refused. 9-Not Applicable-not attempted and the patient did not perform the activity before the current illness, exacerbation or injury. 10-Not Attempted due to Environmental Limitations-(lack of equipment, weather restraints, etc.). 88-Not Attempted due to Medical Conditions or Safety Concerns. Roll Left & Right (QC): 6 Sit to Lying (QC): 6 Lying to Sitting/Side of Bed(Q: 6 Sit to Stand (QC): 6 Chair/Umj-zi-Dpbgt Xfer(QC): 6 Weight Bearing Full Weight Bearing Full Weight Bearing Gait Training Does the Patient Walk?: Yes Walk 10 feet (QC): 6 Walk 50 ft with 2 Turns(QC): 6 Walk 150 ft (QC): 6 Gait Persons Needed: 1 Gait Assistive Device: FWW no LOB, equal step length good velocity Exercises Supine Ex: Bridging, Ankle pumps, Quad Set, Rolling, Glut sets, Heel Slides, Short Arc Quads, Scooting, Straight leg raise, Hip abd/add (sidelying) Supine Reps: 15 Seated Therapy Exercises: Ankle pumps, Sit to stand, Long arc quads, Hip flexion, Hip abd/add Seated Reps: 15 NuStep Minutes: 10 NuStep Workload: 2 Assessment Current Status: Good Progress PT Short Term Goals Short Term Goals Time Frame: Jan 26, 2022 Roll Left & Right: 6 Sit to lyin Lying to sitting on side of be: 6 Sit to stand: 5 Chair/usl-gf-tzbpw transfer: 5 Walk 10 feet: 5 Walk 50 feet with two turns: 5 Walk 150 feet: 5 PT Loom Tuner Goals Care Home Goals PT Loom Tuner Goals Time Frame: Feb 09, 2022 Roll Left & Right (QC): 6 Sit to Lying (QC): 6 Lying-Sitting on Side/Bed(QC): 6 Sit to Stand (QC): 6 Chair/Adt-pb-Ujmzv Xfer(QC): 6 Toilet Transfer (QC): 6 Car Transfer (QC): 6 Does the Patient Walk: Yes Walk 10 feet (QC): 6 Walk 50ft with 2 Turns (QC): 6 Walk 150 ft (QC): 6 Walking 10ft on Uneven Surface: 6 1 Step (curb) (QC): 6 4 Steps (QC): 6 12 Steps (QC): 6 Picking up an Object (QC): 6 Wheel 50 feet with 2 turns (QC: 9 Wheel 150 feet: 9 PT Plan Treatment/Plan Treatment Plan: Continue Plan of Care Treatment Plan: Education, Functional Activity Mauricio, Functional Strength, Group Therapy, Gait, Safety, Therapeutic Exercise, Transfers Treatment Duration: Feb 09, 2022 Frequency: At least 5 of 7 days/Wk (IRF) Estimated Hrs Per Day: 1.5 hours per day Patient and/or Family Agrees t: Yes Safety Risks/Education Patient Education: Gait Training, Transfer Techniques, Correct Positioning, Disease Process, Safety Issues Teaching Recipient: Patient Teaching Methods: Demonstration, Discussion Response to Teaching: Verbalize Understanding, Return Demonstration, Reinforcement Needed Time/GCodes Time In: 1100 Time Out: 1200 Total Billed Treatment Time: 60 Total Billed Treatment 1,EX40m,GT20m MICHAELA SOLORZANO ELECTRONIC DRAFTER Jan 21, 2022 11:59
--- NOTE | 2022-01-21 12:28 | Occupational Ther Daily Note ---
OT Current Status-Daily Note Subjective "I have long haul Covid, including brain fog." Also reported that his ears were plugged up today and he was having a hard time hearing people talk. No reports of pain. Appearance Alert, cooperative, agreeable to OT. Mental Status/Objective Patient Orientation: Person, Place, Time, Situation Attachments: Colostomy/Ileostomy ADL-Treatment Pt walked to the bathroom with SBA, FWW to brush teeth, standing at counter top, and wash hands independently. At the end of treatment, he walked into the bathroom with FWW, transferred on and off toilet without assistance, managed clothing and hygiene, then washed hands at sink independently. Pt transferred into bed with no help at end of tx. Call light in place and present. Therapy Code Descriptions/Definitions Functional [place] Measure: 0=Not Assessed/NA 4=Minimal Assistance 1=Total Assistance 5=Supervision or Setup 2=Maximal Assistance 6=Modified [place] 3=Moderate Assistance 7=Complete IndependenceSCALE: Activities may be completed with or without assistive devices. 1-Vqqxqfmijt-rgudhoc completes the activity by him/herself with no assistance from a helper. 5-Set-up or Clean-up Assistance-helper sets up or cleans up; patient completes activity. [place] assists only prior to or following the activity. 4-Supervision or Touching Assistance-helper provides verbal cues and/or touching/steadying and/or contact guard assistance as patient completes activity. Assistance may be provided throughout the activity or intermittently. 3-Partial/Moderate Assistance-helper does LESS THAN HALF the effort. [place] lifts, holds or supports trunk or limbs, but provides less than half the effort. 2-Substantial/Maximal Assistance-helper does MORE THAN HALF the effort. [place] lifts or holds trunk or limbs and provides more than half the effort. 4-Efksvcual-katuiw does ALL the effort. Patient does none of the effort to complete the activity. Or, the assistance of 2 or more helpers is required for the patient to complete the activity. If activity was not attempted, code reason: 7-Patient Refused. 9-Not Applicable-not attempted and the patient did not perform the activity before the current illness, exacerbation or injury. 10-Not Attempted due to Environmental Limitations-(lack of equipment, weather restraints, etc.). 88-Not Attempted due to Medical Conditions or Safety Concerns. Oral Hygiene (QC): 6 Toileting Hygiene (QC): 6 (Urination only. Tall toilet, grab bar) Toilet Transfer (QC): 6 (Tall toilet, grab bar) Other Treatment Pt walked with SBA, FWW to gym and transferred to chair without help. Completed 10 minutes bilat Ue exercise on arm bike set at 20W resistance, taking one short recovery break at midpoint. Also completed 1" pegs with 1/4" stems and nuts and bolts with 1# weight on each arm, all to strengthen arms and activity tolerance as needed for ADLs post surgery. Completed 10 reps bilat UE exercise with exercise bar, working on shoulders, elbows, forearms and wrists, as needed to increase UE strength and activity tolerance for ADLs. Also completed bilat elbow flex and ext with 1# weight. Pt education on the specific individual exercises. Pt has pitting edema L hand and forearm from IV and it responded well to active ROM L hand. Pt would benefit from additional activities to manage edema and may also benefit from Isotoner glove for edema management. Pt walked back to room after activities and exercise. Education OT Patient Education: Exercise program, Purpose of tx/functional activities, Other (Edema management) Teaching Recipient: Patient Teaching Methods: Demonstration, Discussion Response to Teaching: Verbalize Understanding, Return Demonstration OT Short Term Goals Short Term Goals Time Frame: Jan 23, 2022 Eatin Oral hygiene: 6 Toileting hygiene: 5 Shower/bathe self: 4 Upper body dressin Lower body dressin Putting on/taking off footwear: 5 (shoes only) OT Software Support Analyst Goals Shelter Goals Time Frame: Jan 29, 2022 Eating (QC): 6 Oral Hygiene (QC): 6 Toileting Hygiene (QC): 5 (set up for colostomy) Shower/Bathe Self (QC): 5 Upper Body Dressing (QC): 6 Lower Body Dressing (QC): 6 On/Off Footwear (QC): 6 (shoes only) Add: Edema management to assist with use of L UE during ADLs- goal pt independent with HEP 1=Demonstrate adherence to instructed precautions during ADL tasks. 2=Patient will verbalize/demonstrate understanding of assistive devic es/modifications for ADL. 3=Patient will improve strength/tolerance for activity to enable patient to perform ADL's. OT Education/Plan Discharge Recommendations Plan Add edema management interventions, with goal that pt is indep with HEP Plan/Recommendations: Continue POC Treatment Plan/Plan of Care Treatment,Training & Education: Yes Patient would benefit from OT for education, treatment and training to promote independence in ADL's, mobility, safety and/or upper extremity function for ADL's. Plan of Care: ADL Retraining, Caregiver Training, Cognitive Retraining, Concurrent Therapy, Functional Mobility, Group Exercise/Act as Ind, UE Funct Exercise/Act Treatment Duration: Jan 29, 2022 Frequency: At least 5 of 7 days/Wk (IRF) Estimated Hrs Per Day: 1.5 hours per day (75-90 min/day ) Agreement: Yes Rehab Potential: Good Time/GCodes Start Time: 09:00 Stop Time: 10:30 Total Time Billed (hr/min): 90 Billed Treatment Time Visit, ADL 20 minutes, exercise 70 minutes SHELLI HERNANDEZ OT Jan 21, 2022 12:28
[2022-01-21] MEDS: polyethylene glycoL POWDER 17 GM (MIRALAX) PACK PO SCH ×2 (12:50→19:42)
[2022-01-21] MEDS: PRESERVISION AREDS SOFTGEL (BAUSH & LOMB) PO SCH (12:50)
[2022-01-21] MEDS: SENNA W/DOCUSATE (SENOKOT S) TABLET PO SCH ×2 (12:50→19:42)
[2022-01-21] MEDS: DOCUSATE SODIUM 100 MG (COLACE) CAP PO SCH ×2 (12:50→19:41)
[2022-01-21] MEDS: NS IV 1000 ML 1,000 ML IV SCH ×3 (12:57→22:50)
--- NOTE | 2022-01-21 13:29 | Physical Therapy Daily Note ---
PT Daily Note-Current Subjective Pt. agrees to Rx, describes his steps at home and his low sitting car Pain Location: No Pain Reported Mental Status Patient Orientation: Normal For Age Attachments: Colostomy/Ileostomy, IV Transfers SCALE: Activities may be completed with or without assistive devices. 6-Nkkjedtgbh-ygwdsoy completes the activity by him/herself with no assistance from a helper. 5-Set-up or Clean-up Assistance-helper sets up or cleans up; patient completes activity. [place] assists only prior to or following the activity. 4-Supervision or Touching Assistance-helper provides verbal cues and/or touching/steadying and/or contact guard assistance as patient completes activity. Assistance may be provided throughout the activity or intermittently. 3-Partial/Moderate Assistance-helper does LESS THAN HALF the effort. [place] lifts, holds or supports trunk or limbs, but provides less than half the effort. 2-Substantial/Maximal Assistance-helper does MORE THAN HALF the effort. [place] lifts or holds trunk or limbs and provides more than half the effort. 3-Onopvymwn-zcftay does ALL the effort. Patient does none of the effort to complete the activity. Or, the assistance of 2 or more helpers is required for the patient to complete the activity. If activity was not attempted, code reason: 7-Patient Refused. 9-Not Applicable-not attempted and the patient did not perform the activity before the current illness, exacerbation or injury. 10-Not Attempted due to Environmental Limitations-(lack of equipment, weather restraints, etc.). 88-Not Attempted due to Medical Conditions or Safety Concerns. Car Transfer (QC): 6 Weight Bearing Full Weight Bearing Full Weight Bearing Gait Training Gait Assistive Device: FWW 165 ft x 2 SBA FWW Stair Training Stair Training: Handrails/: 2 handrails #of Steps: 4 4 Steps (QC): 4 Stairs: Pattern: Reciprocal reciprocal ascending, step to descending, no LOB, uses rails bilat Exercises Seated Therapy Exercises: Ankle pumps, Sit to stand, Long arc quads, Hip flexion, Hip abd/add Seated Reps: 10 Assessment Current Status: Good Progress PT Short Term Goals Short Term Goals Time Frame: Jan 26, 2022 Roll Left & Right: 6 Sit to lyin Lying to sitting on side of be: 6 Sit to stand: 5 Chair/hqz-sx-vyzig transfer: 5 Walk 10 feet: 5 Walk 50 feet with two turns: 5 Walk 150 feet: 5 PT Parts Finisher Goals Long-Term Goals PT Parts Finisher Goals Time Frame: Feb 09, 2022 Roll Left & Right (QC): 6 Sit to Lying (QC): 6 Lying-Sitting on Side/Bed(QC): 6 Sit to Stand (QC): 6 Chair/Yld-fj-Nvzhl Xfer(QC): 6 Toilet Transfer (QC): 6 Car Transfer (QC): 6 Does the Patient Walk: Yes Walk 10 feet (QC): 6 Walk 50ft with 2 Turns (QC): 6 Walk 150 ft (QC): 6 Walking 10ft on Uneven Surface: 6 1 Step (curb) (QC): 6 4 Steps (QC): 6 12 Steps (QC): 6 Picking up an Object (QC): 6 Wheel 50 feet with 2 turns (QC: 9 Wheel 150 feet: 9 PT Plan Treatment/Plan Treatment Plan: Continue Plan of Care Treatment Plan: Education, Functional Activity Mauricio, Functional Strength, Group Therapy, Gait, Safety, Therapeutic Exercise, Transfers Treatment Duration: Feb 09, 2022 Frequency: At least 5 of 7 days/Wk (IRF) Estimated Hrs Per Day: 1.5 hours per day Patient and/or Family Agrees t: Yes Safety Risks/Education Patient Education: Gait Training, Transfer Techniques, Steps, Correct Positioning, Disease Process, Safety Issues Teaching Recipient: Patient Teaching Methods: Demonstration, Discussion Response to Teaching: Verbalize Understanding, Return Demonstration, R einforcement Needed Time/GCodes Time In: 1300 Time Out: 1330 Total Billed Treatment Time: 30 Total Billed Treatment 1,FA17m,GT13m MICHAELA SOLORZANO MANAGER INSURANCE Jan 21, 2022 13:29
[2022-01-21] MEDS: NON-FORMULARY MEDICATION 1 EA EA (Ubidecarenone (Coq-10) 100 MG) PO SCH ×2 (17:41→17:42)
[2022-01-21 19:44] VITALS: BP 125/56
[2022-01-21] MEDS: MONTELUKAST 10 MG (SINGULAIR) TAB PO SCH (20:12)
--- NOTE | 2022-01-22 05:43 | PM&R Progress Note ---
Subjective HPI/CC On Admission Date Seen by Provider: Jan 22, 2022 Time Seen by Provider: 12:45 Subjective/Events-last exam 01/22/2022: Patient doing well HLIVF after this liter is complete Update patient on the O2 at night recs by Dr Ornelas Cognition will need to be monitored 01/21/2022: Doing well Increased output from ileostomy 700+ so will initiate IVF KU had delayed DC due to high output Improved otherwise 01/20/2022: Doing better Ileostomy functioning well Gaining strength Slept better last night Labs reviewed No pain Review of Systems General: Fatigue, Malaise Objective Exam Vital Signs Vital Signs Date Time Temp Pulse Resp B/P (MAP) Pulse Ox O2 Delivery O2 Flow Rate FiO2 01/22/22 09:00 Room Air 01/22/22 07:48 36.5 74 16 129/62 (84) 94 Capillary Refill : General Appearance: No Apparent Distress, WD/WN, Chronically ill HEENT: PERRL/EOMI, Normal ENT Inspection, Pharynx Normal Neck: Full Range of Motion, Normal Inspection, Non Tender, Supple, Carotid Bruit Respiratory: Chest Non Tender, Lungs Clear, Normal Breath Sounds, No Accessory Muscle Use, No Respiratory Distress Cardiovascular: Regular Rate, Rhythm, No Edema, No Gallop, No JVD, No Murmur, Normal Peripheral Pulses Gastrointestinal: Normal Bowel Sounds, No Organomegaly, No Pulsatile Mass, Non Tender, Soft Back: Normal Inspection, No CVA Tenderness, No Vertebral Tenderness Extremity: Normal Capillary Refill, Normal Inspection, Normal Range of Motion, Non Tender, No Calf Tenderness, No Pedal Edema Neurologic/Psychiatric: Alert, Oriented x3, lead customer service representative II-XII Norm as Tested, Abnormal Gait, Depressed Affect, Motor Weakness (generalized) Skin: Normal Color, Warm/Dry Lymphatic: No Adenopathy Results/Procedures Lab Laboratory Tests 01/22/22 06:17 Patient resulted labs reviewed. FIM Transfers Therapy Code Descriptions/Definitions Functional [place] Measure: 0=Not Assessed/NA 4=Minimal Assistance 1=Total Assistance 5=Supervision or Setup 2=Maximal Assistance 6=Modified [place] 3=Moderate Assistance 7=Complete IndependenceSCALE: Activities may be completed with or without assistive devices. 9-Dqlettgtrd-bonawbr completes the activity by him/herself with no assistance from a helper. 5-Set-up or Clean-up Assistance-helper sets up or cleans up; patient completes activity. [place] assists only prior to or following the activity. 4-Supervision or Touching Assistance-helper provides verbal cues and/or to uching/steadying and/or contact guard assistance as patient completes activity. Assistance may be provided throughout the activity or intermittently. 3-Partial/Moderate Assistance-helper does LESS THAN HALF the effort. [place] lifts, holds or supports trunk or limbs, but provides less than half the effort. 2-Substantial/Maximal Assistance-helper does MORE THAN HALF the effort. [place] lifts or holds trunk or limbs and provides more than half the effort. 9-Cearvnybj-hqflvz does ALL the effort. Patient does none of the effort to complete the activity. Or, the assistance of 2 or more helpers is required for the patient to complete the activity. If activity was not attempted, code reason: 7-Patient Refused. 9-Not Applicable-not attempted and the patient did not perform the activity before the current illness, exacerbation or injury. 10-Not Attempted due to Environmental Limitations-(lack of equipment, weather restraints, etc.). 88-Not Attempted due to Medical Conditions or Safety Concerns. Roll Left to Right (QC): 6 Sit to Lying (QC): 6 Sit to Stand (QC): 6 Chair/Fcu-mi-Xonho Xfer(QC): 6 Car Transfer (QC): 6 Gait Training Does the Patient Walk?: Yes Distance: 250', 150' Walk 10 feet (QC): 6 Walk 50 ft with 2 Turns(QC): 6 Walk 150 ft (QC): 6 Walking 10ft/uneven surface-QC: 4 Gait Persons Needed: 1 Gait Assistive Device: FWW Wheelchair Training Does the Pt Use a Wheelchair?: No Wheel 50 ft with 2 turns (QC): 9 Wheel 150 ft (QC): 9 Stair Training Stair Training: Handrails/: 2 handrails #of Steps: 4 1 Step (curb) (QC): 4 4 Steps (QC): 4 12 Steps (QC): 88 Stairs: Pattern: Reciprocal Balance Picking up an Object (QC): 4 (SBA with pattern scratcher) ADL-Treatment Eating (QC): 6 (Per clinical judgment.) Oral Hygiene (QC): 6 Shower/Bathe Self (QC): 4 Upper Body Dressing (QC): 6 Lower Body Dressing (QC): 4 On/Off Footwear (QC): 6 (shoes only) Toileting Hygiene (QC): 6 (Urination only. Tall toilet, grab bar) Toilet Transfer (QC): 6 (Tall toilet, grab bar) Assessment/Plan Assessment and Plan Assess & Plan/Chief Complaint Assessment: Myopathy Rectal adenocarcinoma resection with ileostomy Long hamurphy COVID symptoms Weight loss 45 pounds BPH Anemia Ileostomy high output needing IVF 01/21/22 Nocturnal hypoxia per sleep study Dr Ornelas Plan: Monitor closely Home meds IRF protocol 01/20/2022: Monitor fluid intake Lomotil and Imodium 01/21/2022: IVF Monitor closely 01/22/2022: IVF heplock after this liter done (1) Colon cancer (2) COVID-19 ania mccallum (3) Weight loss (4) Advanced age (5) Weakness Status: Acute FELIX CESAR DO Jan 22, 2022 05:43
[2022-01-22] MEDS: MULTIVIT W/MINERALS TAB (THERAGRAN M) PO SCH (06:06)
[2022-01-22 06:27] LABS: BASOPHILS # (AUTO) 0.1 10^3/uL (0.0-0.1); BASOPHILS % (AUTO) 1 % (0-10); EOSINOPHILS # (AUTO) 0.2 10^3/uL (0.0-0.3); EOSINOPHILS % (AUTO) 4 % (0-10); HEMATOCRIT 32 % (40-54); HEMOGLOBIN 10.5 g/dL (13.3-17.7); LYMPHOCYTES % (AUTO) 17 % (12-44); MEAN CORPUSCULAR HEMOGLOBIN 32 pg (25-34); MEAN CORPUSCULAR HGB CONC 33 g/dL (32-36); MEAN CORPUSCULAR VOLUME 97 fL (80-99); MEAN PLATELET VOLUME 8.9 fL (9.0-12.2); MONOCYTES # (AUTO) 0.9 10^3/uL (0.0-1.0); MONOCYTES % (AUTO) 15 % (0-12); NEUTROPHILS # (AUTO) 3.7 10^3/uL (1.8-7.8); NEUTROPHILS % (AUTO) 63 % (42-75); PLATELET COUNT 286 10^3/uL (130-400); WHITE BLOOD COUNT 5.9 10^3/uL (4.3-11.0)
[2022-01-22 06:35] LABS: ALBUMIN 2.8 GM/DL (3.2-4.5); POTASSIUM 3.8 MMOL/L (3.6-5.0)
[2022-01-22 06:36] LABS: CALCIUM 8.5 MG/DL (8.5-10.1)
[2022-01-22 06:37] LABS: TOTAL PROTEIN 5.5 GM/DL (6.4-8.2)
[2022-01-22 06:39] LABS: BILIRUBIN,TOTAL 0.4 MG/DL (0.1-1.0)
[2022-01-22 06:41] LABS: CREATININE SERUM 0.83 MG/DL (0.60-1.30)
[2022-01-22 06:44] LABS: MAGNESIUM 1.6 MG/DL (1.6-2.4)
[2022-01-22 07:48] VITALS: BP 129/62
[2022-01-22] MEDS: ROSUVASTATIN 20 MG (CRESTOR) TABLET PO SCH (08:53)
[2022-01-22] MEDS: PANTOPRAZOLE 40 MG (PROTONIX) TAB PO SCH (08:54)
[2022-01-22] MEDS: OMEGA 3 (FISH OIL) 1000 MG CAP PO SCH ×2 (08:54→21:30)
[2022-01-22] MEDS: meTOprolol SUCCINATE 100 MG (TOPROL XL) TAB PO SCH (08:54)
[2022-01-22] MEDS: ASPIRIN E.C. 81 MG (ECOTRIN) TAB PO SCH (08:54)
[2022-01-22] MEDS: LORATADINE (CLARITIN) 10 MG TAB PO SCH (08:54)
[2022-01-22] MEDS: LOPERAMIDE 2 MG (IMODIUM) TABLET PO SCH ×4 (08:54→21:30)
[2022-01-22] MEDS: DIPHENOXYLATE/ATROPINE 2.5MG/0.025MG (LOMOTIL) TAB PO SCH ×2 (08:54→21:30)
[2022-01-22] MEDS: TAMSULOSIN 0.4 MG (FLOMAX) CAP PO SCH (08:54)
[2022-01-22] MEDS: VITAMIN D3 25 MCG (1,000 UNITS) TABLET PO SCH (08:54)
[2022-01-22] MEDS: ASCORBIC ACID (VIT C) 500 MG TABLET PO SCH (08:54)
[2022-01-22] MEDS: FERROUS SULF 325 MG (IRON) TAB PO SCH (08:56)
[2022-01-22] MEDS: BACITRACIN OINTMENT 28 GM TUBE TP SCH ×2 (08:56→21:30)
[2022-01-22] MEDS: LIDOCAINE 4% (SALONPAS) PATCH TOP SCH (08:56)
--- NOTE | 2022-01-22 09:00 | Physical Therapy Daily Note ---
PT Daily Note-Current Subjective Pt. agrees to Rx, states he feels he didnt get enough sleep. Wants to progress to using cane. Pt. is concerned that his colostomy bag is too full. Pt. resists trying to assist in emptying it. This BLOCK CAPTAIN encouraging pt. to learn this as he will be responsible for this at home. Pain Location: No Pain Reported Mental Status Patient Orientation: Normal For Age Attachments: Colostomy/Ileostomy, IV Transfers SCALE: Activities may be completed with or without assistive devices. 0-Hyveyfwfep-muvdvld completes the activity by him/herself with no assistance from a helper. 5-Set-up or Clean-up Assistance-helper sets up or cleans up; patient completes activity. [place] assists only prior to or following the activity. 4-Supervision or Touching Assistance-helper provides verbal cues and/or touching/steadying and/or contact guard assistance as patient completes activity. Assistance may be provided throughout the activity or intermittently. 3-Partial/Moderate Assistance-helper does LESS THAN HALF the effort. [place] lifts, holds or supports trunk or limbs, but provides less than half the effort. 2-Substantial/Maximal Assistance-helper does MORE THAN HALF the effort. [place] lifts or holds trunk or limbs and provides more than half the effort. 9-Osfbocjua-weusaz does ALL the effort. Patient does none of the effort to c omplete the activity. Or, the assistance of 2 or more helpers is required for the patient to complete the activity. If activity was not attempted, code reason: 7-Patient Refused. 9-Not Applicable-not attempted and the patient did not perform the activity before the current illness, exacerbation or injury. 10-Not Attempted due to Environmental Limitations-(lack of equipment, weather restraints, etc.). 88-Not Attempted due to Medical Conditions or Safety Concerns. Roll Left & Right (QC): 6 Sit to Lying (QC): 6 Lying to Sitting/Side of Bed(Q: 6 Sit to Stand (QC): 6 Chair/Xkk-nn-Mrbvm Xfer(QC): 6 Weight Bearing Full Weight Bearing Full Weight Bearing Gait Training Does the Patient Walk?: Yes Walk 10 feet (QC): 4 Walk 50 ft with 2 Turns(QC): 4 Walk 150 ft (QC): 4 Gait Persons Needed: 1 Gait Assistive Device: Cane Single Point 175 ft FWW, 50 ft and 125 ft SPC with CGA no LOB, equal step length. pt. instructed to use FWW when with nursing and cont to train on SPC with PT only Exercises Supine Ex: Bridging, Ankle pumps, Rolling, Glut sets, Lower trunk rotation, Heel Slides, Short Arc Quads, Straight leg raise, Hip abd/add (sidelying) Supine Reps: 15 Seated Therapy Exercises: Ankle pumps, Sit to stand, Long arc quads, Hip flexion, Hip abd/add Seated Reps: 12 NuStep Minutes: 8 NuStep Workload: 1 Treatments GT with SPC training, balance challenges derived from NAKIA BLACKBURN ex, TRFs Assessment Current Status: Good Progress PT Short Term Goals Short Term Goals Time Frame: Jan 26, 2022 Roll Left & Right: 6 Sit to lyin Lying to sitting on side of be: 6 Sit to stand: 5 Chair/olx-lv-lttoi transfer: 5 Walk 10 feet: 5 Walk 50 feet with two turns: 5 Walk 150 feet: 5 PT Longterm Goals Credit And Collections Representative Goals PT Credit And Collections Representative Goals Time Frame: Feb 09, 2022 Roll Left & Right (QC): 6 Sit to Lying (QC): 6 Lying-Sitting on Side/Bed(QC): 6 Sit to Stand (QC): 6 Chair/Sgk-ar-Kvatw Xfer(QC): 6 Toilet Transfer (QC): 6 Car Transfer (QC): 6 Does the Patient Walk: Yes Walk 10 feet (QC): 6 Walk 50ft with 2 Turns (QC): 6 Walk 150 ft (QC): 6 Walking 10ft on Uneven Surface: 6 1 Step (curb) (QC): 6 4 Steps (QC): 6 12 Steps (QC): 6 Picking up an Object (QC): 6 Wheel 50 feet with 2 turns (QC: 9 Wheel 150 feet: 9 PT Plan Treatment/Plan Treatment Plan: Continue Plan of Care Treatment Plan: Education, Functional Activity Mauricio, Functional Strength, Group Therapy, Gait, Safety, Therapeutic Exercise, Transfers Treatment Duration: Feb 09, 2022 Frequency: At least 5 of 7 days/Wk (IRF) Estimated Hrs Per Day: 1.5 hours per day Patient and/or Family Agrees t: Yes Safety Risks/Education Patient Education: Gait Training, Transfer Techniques, Correct Positioning, Disease Process, Safety Issues Teaching Recipient: Patient Teaching Methods: Demonstration, Discussion Response to Teaching: Verbalize Understanding, Return Demonstration, [place] nforcement Needed Time/GCodes Time In: 800 Time Out: 900 Total Billed Treatment Time: 60 Total Billed Treatment 1,GT30m,EX30m MICHAELA SOLORZANO BLOCK CAPTAIN Jan 22, 2022 09:00
[2022-01-22] MEDS: DOCUSATE SODIUM 100 MG (COLACE) CAP PO SCH ×2 (09:05→21:00)
[2022-01-22] MEDS: polyethylene glycoL POWDER 17 GM (MIRALAX) PACK PO SCH ×2 (09:06→21:00)
[2022-01-22] MEDS: PRESERVISION AREDS SOFTGEL (BAUSH & LOMB) PO SCH (09:06)
[2022-01-22] MEDS: SENNA W/DOCUSATE (SENOKOT S) TABLET PO SCH ×2 (09:07→21:00)
[2022-01-22] MEDS: NS IV 1000 ML 1,000 ML IV SCH (09:10)
--- NOTE | 2022-01-22 10:20 | Occupational Ther Daily Note ---
OT Current Status-Daily Note Subjective Pt alert, sitting in recliner. Pt agrees to therapy. No c/o pain. Mental Status/Objective Patient Orientation: Person, Place, Time, Situation Attachments: IV ADL-Treatment Pt declines shower. Pt independent with toileting, urination only. Independent with oral care and grooming standing at sink, independent stance no AD. Therapy Code Descriptions/Definitions Functional [place] Measure: 0=Not Assessed/NA 4=Minimal Assistance 1=Total Assistance 5=Supervision or Setup 2=Maximal Assistance 6=Modified [place] 3=Moderate Assistance 7=Complete IndependenceSCALE: Activities may be completed with or without assistive devices. 2-Goxrqmhxqk-pfslclz completes the activity by him/herself with no assistance from a helper. 5-Set-up or Clean-up Assistance-helper sets up or cleans up; patient completes activity. [place] assists only prior to or following the activity. 4-Supervision or Touching Assistance-helper provides verbal cues and/or touching/steadying and/or contact guard assistance as patient completes ac tivity. Assistance may be provided throughout the activity or intermittently. 3-Partial/Moderate Assistance-helper does LESS THAN HALF the effort. [place] lifts, holds or supports trunk or limbs, but provides less than half the effort. 2-Substantial/Maximal Assistance-helper does MORE THAN HALF the effort. [place] lifts or holds trunk or limbs and provides more than half the effort. 4-Mgsxwfqnm-jddeww does ALL the effort. Patient does none of the effort to complete the activity. Or, the assistance of 2 or more helpers is required for the patient to complete the activity. If activity was not attempted, code reason: 7-Patient Refused. 9-Not Applicable-not attempted and the patient did not perform the activity before the current illness, exacerbation or injury. 10-Not Attempted due to Environmental Limitations-(lack of equipment, weather restraints, etc.). 88-Not Attempted due to Medical Conditions or Safety Concerns. Oral Hygiene (QC): 6 Toileting Hygiene (QC): 6 (voiding only) Toilet Transfer (QC): 6 Other Treatment Pt ambulated to therapy gym with FWW, PERSONNEL COORDINATOR explained to HEBERT that pt is able to use SPC with therapies. Pt completes B UE exercises to increase strength and coordination for daily functional tasks. Wrist flex/ext/uln dev/rad dev using 1# wt, 3 sets 10 reps. Dowel josé exercise with 2# wt attached, bicep/tricep/shldr press 2 sets 15 reps. Resistive clothes pins 1x with each hand. Green (med/heavy resistance) theraband exercises completed, horizontal abd/add, shldr abd/add, shldr int/ext rotation 2 sets 10 reps. After therapy, pt sitting in recliner with call light/phone in reach. All needs met in room. OT Short Term Goals Short Term Goals Time Frame: Jan 23, 2022 Eatin Oral hygiene: 6 Toileting hygiene: 5 Shower/bathe self: 4 Upper body dressin Lower body dressin Putting on/taking off footwear: 5 (shoes only) OT Visual Design Lead Goals Visual Design Lead Goals Time Frame: Jan 29, 2022 Eating (QC): 6 Oral Hygiene (QC): 6 Toileting Hygiene (QC): 5 (set up for colostomy) Shower/Bathe Self (QC): 5 Upper Body Dressing (QC): 6 Lower Body Dressing (QC): 6 On/Off Footwear (QC): 6 (shoes only) Add: Edema management to assist with use of L UE during ADLs- goal pt independent with HEP 1=Demonstrate adherence to instructed precautions during ADL tasks. 2=Patient will verbalize/demonstrate understanding of assistive devices/modifications for ADL. 3=Patient will improve strength/tolerance for activity to enable patient to perform ADL's. OT Education/Plan Problem List/Assessment Assessment: Decreased Activ Tolerance, Decreased UE Strength Discharge Recommendations Plan/Recommendations: Continue POC Treatment Plan/Plan of Care Patient would benefit from OT for education, treatment and training to promote independence in ADL's, mobility, safety and/or upper extremity function for ADL's. Plan of Care: ADL Retraining, Caregiver Training, Cognitive Retraining, Concurrent Therapy, Functional Mobility, Group Exercise/Act as Ind, UE Funct Exercise/Act Treatment Duration: Jan 29, 2022 Frequency: At least 5 of 7 days/Wk (IRF) Estimated Hrs Per Day: 1.5 hours per day (75-90 min/day ) Agreement: Yes Rehab Potential: Good Time/GCodes Start Time: 09:00 Stop Time: 10:30 Total Time Billed (hr/min): 90 Billed Treatment Time 1 visit-EX 4 (60 min) ADL 2 (30 min) SILVERIO PAL Jan 22, 2022 10:20
--- NOTE | 2022-01-22 11:29 | Physical Therapy Daily Note ---
PT Daily Note-Current Subjective Pt. agrees to Rx. States he uses a lift recline chair at home bc his brother and left it to him. Pain Numeric Pain Scale: 3 Location: Left Location Body Site: Arm (forearm) Pain Description: Burning Comment: appears to be old IV site with infiltration , has Kpad on arm Mental Status Patient Orientation: Normal For Age Attachments: IV Transfers SCALE: Activities may be completed with or without assistive devices. 0-Cbtrfsoarj-fbotnyk completes the activity by him/herself with no assistance from a helper. 5-Set-up or Clean-up Assistance-helper sets up or cleans up; patient completes activity. [place] assists only prior to or following the activity. 4-Supervision or Touching Assistance-helper provides verbal cues and/or touching/steadying and/or contact guard assistance as patient completes activity. Assistance may be provided throughout the activity or intermittently. 3-Partial/Moderate Assistance-helper does LESS THAN HALF the effort. [place] lift s, holds or supports trunk or limbs, but provides less than half the effort. 2-Substantial/Maximal Assistance-helper does MORE THAN HALF the effort. [place] lifts or holds trunk or limbs and provides more than half the effort. 9-Zxeqkiybr-xlvagn does ALL the effort. Patient does none of the effort to complete the activity. Or, the assistance of 2 or more helpers is required for the patient to complete the activity. If activity was not attempted, code reason: 7-Patient Refused. 9-Not Applicable-not attempted and the patient did not perform the activity before the current illness, exacerbation or injury. 10-Not Attempted due to Environmental Limitations-(lack of equipment, weather restraints, etc.). 88-Not Attempted due to Medical Conditions or Safety Concerns. sit to stands all SBA to Mod I Weight Bearing Full Weight Bearing Full Weight Bearing Gait Training Does the Patient Walk?: Yes Walk 150 ft (QC): 4 Gait Persons Needed: 1 Gait Assistive Device: Cane Single Point pts own SPC here, ambulated 250 ft x 2 no LOB, assisted for IV Exercises Seated Therapy Exercises: Ankle pumps, Sit to stand, Long arc quads, Hip flexion, Hip abd/add Seated Reps: 12 Treatments gait with SPC, sit to stands, review of safety Assessment Current Status: Good Progress PT Short Term Goals Short Term Goals Time Frame: Jan 26, 2022 Roll Left & Right: 6 Sit to lyin Lying to sitting on side of be: 6 Sit to stand: 5 Chair/jnb-xw-jhegy transfer: 5 Walk 10 feet: 5 Walk 50 feet with two turns: 5 Walk 150 feet: 5 PT Senior Care Goals Senior Care Goals PT Data Processing Manager Goals Time Frame: Feb 09, 2022 Roll Left & Right (QC): 6 Sit to Lying (QC): 6 Lying-Sitting on Side/Bed(QC): 6 Sit to Stand (QC): 6 Chair/Ssl-iv-Hsjqk Xfer(QC): 6 Toilet Transfer (QC): 6 Car Transfer (QC): 6 Does the Patient Walk: Yes Walk 10 feet (QC): 6 Walk 50ft with 2 Turns (QC): 6 Walk 150 ft (QC): 6 Walking 10ft on Uneven Surface: 6 1 Step (curb) (QC): 6 4 Steps (QC): 6 12 Steps (QC): 6 Picking up an Object (QC): 6 Wheel 50 feet with 2 turns (QC: 9 Wheel 150 feet: 9 PT Plan Treatment/Plan Treatment Plan: Continue Plan of Care Treatment Plan: Education, Functional Activity Mauricio, Functional Strength, Group Therapy, Gait, Safety, Therapeutic Exercise, Transfers Treatment Duration: Feb 09, 2022 Frequency: At least 5 of 7 days/Wk (IRF) Estimated Hrs Per Day: 1.5 hours per day Patient and/or Family Agrees t: Yes Safety Risks/Education Patient Education: Gait Training, Transfer Techniques Teaching Recipient: Patient Teaching Methods: Demonstration, Discussion Response to Teaching: Verbalize Understanding, Return Demonstration, Reinforcement Needed Time/GCodes Time In: 1100 Time Out: 1130 Total Billed Treatment Time: 30 Total Billed Treatment 1,GT20m,FA10m MICHAELA SOLORZANO COASTAL TUG MATE Jan 22, 2022 11:29
[2022-01-22 20:08] VITALS: BP 117/57
[2022-01-22] MEDS: MONTELUKAST 10 MG (SINGULAIR) TAB PO SCH (21:30)
[2022-01-22] MEDS: LIDOCAINE PATCH REMOVAL TP SCH (21:52)
[2022-01-23] MEDS: NS IV 1000 ML 1,000 ML IV SCH (01:30)
[2022-01-23] MEDS: MULTIVIT W/MINERALS TAB (THERAGRAN M) PO SCH (06:19)
--- NOTE | 2022-01-23 06:31 | PM&R Progress Note ---
Subjective HPI/CC On Admission Date Seen by Provider: Jan 23, 2022 Time Seen by Provider: 12:30 Subjective/Events-last exam 01/23/2022: Pt is doing a lot better Discharge on Wednesday Rash on back will require Benadryl cream Ostomy education went really well 100 CC output from ileostomy and 350 last night Will need IV fluids three times weekly to prevent dehydration 01/22/2022: Patient doing well HLIVF after this liter is complete Update patient on the O2 at night recs by Dr Ornelas Cognition will need to be monitored 01/21/2022: Doing well Increased output from ileostomy 700+ so will initiate IVF KU had delayed DC due to high output Improved otherwise 01/20/2022: Doing better Ileostomy functioning well Gaining strength Slept better last night Labs reviewed No pain Review of Systems General: Fatigue, Malaise Objective Exam Vital Signs Vital Signs Date Time Temp Pulse Resp B/P (MAP) Pulse Ox O2 Delivery O2 Flow Rate FiO2 01/23/22 09:00 Room Air 01/23/22 07:42 36.4 76 18 134/61 (85) 94 Capillary Refill : General Appearance: No Apparent Distress, WD/WN, Chronically ill HEENT: PERRL/EOMI, Normal ENT Inspection, Pharynx Normal Neck: Full Range of Motion, Normal Inspection, Non Tender, Supple, Carotid Bruit Respiratory: Chest Non Tender, Lungs Clear, Normal Breath Sounds, No Accessory Muscle Use, No Respiratory Distress Cardiovascular: Regular Rate, Rhythm, No Edema, No Gallop, No JVD, No Murmur, Normal Peripheral Pulses Gastrointestinal: Normal Bowel Sounds, No Organomegaly, No Pulsatile Mass, Non Tender, Soft Back: Normal Inspection, No CVA Tenderness, No Vertebral Tenderness Extremity: Normal Capillary Refill, Normal Inspection, Normal Range of Motion, Non Tender, No Calf Tenderness, No Pedal Edema Neurologic/Psychiatric: Alert, Oriented x3, flamer sealer II-XII Norm as Tested, Abnormal Gait, Depressed Affect, Motor Weakness (generalized) Skin: Normal Color, Warm/Dry Lymphatic: No Adenopathy Results/Procedures Lab Patient resulted labs reviewed. FIM Transfers Therapy Code Descriptions/Definitions Functional [place] Measure: 0=Not Assessed/NA 4=Minimal Assistance 1=Total Assistance 5=Supervision or Setup 2=Maximal Assistance 6=Modified [place] 3=Moderate Assistance 7=Complete IndependenceSCALE: Activities may be completed with or without assistive devices. 5-Pgnwazrata-cosluus completes the activity by him/herself with no assistance from a helper. 5-Set-up or Clean-up Assistance-helper sets up or cleans up; patient completes activity. [place] assists only prior to or following the activity. 4-Supervision or Touching Assistance-helper provides verbal cues and/or to uching/steadying and/or contact guard assistance as patient completes activity. Assistance may be provided throughout the activity or intermittently. 3-Partial/Moderate Assistance-helper does LESS THAN HALF the effort. [place] lifts, holds or supports trunk or limbs, but provides less than half the effort. 2-Substantial/Maximal Assistance-helper does MORE THAN HALF the effort. [place] lifts or holds trunk or limbs and provides more than half the effort. 4-Ilrnrdmrd-rnnlrc does ALL the effort. Patient does none of the effort to complete the activity. Or, the assistance of 2 or more helpers is required for the patient to complete the activity. If activity was not attempted, code reason: 7-Patient Refused. 9-Not Applicable-not attempted and the patient did not perform the activity before the current illness, exacerbation or injury. 10-Not Attempted due to Environmental Limitations-(lack of equipment, weather restraints, etc.). 88-Not Attempted due to Medical Conditions or Safety Concerns. Roll Left to Right (QC): 6 Sit to Lying (QC): 6 Sit to Stand (QC): 6 Chair/Lhz-vw-Ckruu Xfer(QC): 6 Car Transfer (QC): 6 Gait Training Does the Patient Walk?: Yes Distance: 250', 150' Walk 10 feet (QC): 4 Walk 50 ft with 2 Turns(QC): 4 Walk 150 ft (QC): 4 Walking 10ft/uneven surface-QC: 4 Gait Persons Needed: 1 Gait Assistive Device: Cane Single Point Wheelchair Training Does the Pt Use a Wheelchair?: No Wheel 50 ft with 2 turns (QC): 9 Wheel 150 ft (QC): 9 Stair Training Stair Training: Handrails/: 2 handrails #of Steps: 4 1 Step (curb) (QC): 4 4 Steps (QC): 4 12 Steps (QC): 88 Stairs: Pattern: Reciprocal Balance Picking up an Object (QC): 4 (SBA with postal service mail processor) ADL-Treatment Eating (QC): 6 (Per clinical judgment.) Oral Hygiene (QC): 6 Shower/Bathe Self (QC): 4 Upper Body Dressing (QC): 6 Lower Body Dressing (QC): 4 On/Off Footwear (QC): 6 (shoes only) Toileting Hygiene (QC): 6 (voiding only) Toilet Transfer (QC): 6 Assessment/Plan Assessment and Plan Assess & Plan/Chief Complaint Assessment: Myopathy Rectal adenocarcinoma resection with ileostomy Mao mccallum COVID symptoms Weight loss 45 pounds BPH Anemia Ileostomy high output needing IVF 01/21/22 Nocturnal hypoxia per sleep study Dr Ornelas Plan: Monitor closely Home meds IRF protocol 01/20/2022: Monitor fluid intake Lomotil and Imodium 01/21/2022: IVF Monitor closely 01/22/2022: IVF heplock after this liter done 01/23/2022: IVF tomorrow Keep PICC at DC for IVF three times a week for a few weeks (1) Colon cancer (2) COVID-19 mao mccallum (3) Weight loss (4) Advanced age (5) Weakness Status: Acute FELIX CESAR DO Jan 23, 2022 06:31
[2022-01-23 07:42] VITALS: BP 134/61
--- NOTE | 2022-01-23 08:59 | Physical Therapy Daily Note ---
PT Daily Note-Current Subjective Pt. agrees to Rx and feels he is doing much better and is ready to go home. Pain Location: No Pain Reported Mental Status Patient Orientation: Normal For Age Attachments: Colostomy/Ileostomy Transfers SCALE: Activities may be completed with or without assistive devices. 0-Lyiwsxqgii-hwxtsen completes the activity by him/herself with no assistance from a helper. 5-Set-up or Clean-up Assistance-helper sets up or cleans up; patient completes activity. [place] assists only prior to or following the activity. 4-Supervision or Touching Assistance-helper provides verbal cues and/or touching/steadying and/or contact guard assistance as patient completes activity. Assistance may be provided throughout the activity or intermittently. 3-Partial/Moderate Assistance-helper does LESS THAN HALF the effort. [place] lifts, holds or supports trunk or limbs, but provides less than half the effort. 2-Substantial/Maximal Assistance-helper does MORE THAN HALF the effort. [place] lifts or holds trunk or limbs and provides more than half the effort. 3-Wdwypqbbo-dfnudk does ALL the effort. Patient does none of the effort to complete the activity. Or, the assistance of 2 or more helpers is required for the patient to complete the activity. If activity was not attempted, code reason: 7-Patient Refused. 9-Not Applicable-not attempted and the patient did not perform the activity before the current illness, exacerbation or injury. 10-Not Attempted due to Environmental Limitations-(lack of equipment, weather restraints, etc.). 88-Not Attempted due to Medical Conditions or Safety Concerns. Roll Left & Right (QC): 6 Sit to Lying (QC): 6 Lying to Sitting/Side of Bed(Q: 6 Sit to Stand (QC): 6 Chair/Qdf-sc-Tqjaa Xfer(QC): 6 Toilet Transfer (QC): 6 Car Transfer (QC): 6 Weight Bearing Full Weight Bearing Full Weight Bearing Gait Training Does the Patient Walk?: Yes Walk 10 feet (QC): 6 Walk 50 ft with 2 Turns(QC): 6 Walk 150 ft (QC): 6 Gait Assistive Device: Cane Single Point 250 ft x 3, side step, retro step all no LOB using SPC. Stair Training Stair Training: Handrails/: 2 handrails #of Steps: 8 4 Steps (QC): 6 Stairs: Pattern: Reciprocal Balance Picking up an Object (QC): 6 Exercises Seated Therapy Exercises: Ankle pumps, Sit to stand, Long arc quads, Hip flexion, Hip abd/add Seated Reps: 20 NuStep Minutes: 10 NuStep Workload: 2 Assessment Current Status: Good Progress meets goals PT Short Term Goals Short Term Goals Time Frame: Jan 26, 2022 Roll Left & Right: 6 Sit to lyin Lying to sitting on side of be: 6 Sit to stand: 5 Chair/zjp-fk-gydwh transfer: 5 Walk 10 feet: 5 Walk 50 feet with two turns: 5 Walk 150 feet: 5 PT Chcf Goals Icer Hand Goals PT Chcf Goals Time Frame: Feb 09, 2022 Roll Left & Right (QC): 6 Sit to Lying (QC): 6 Lying-Sitting on Side/Bed(QC): 6 Sit to Stand (QC): 6 Chair/Pht-et-Lbbom Xfer(QC): 6 Toilet Transfer (QC): 6 Car Transfer (QC): 6 Does the Patient Walk: Yes Walk 10 feet (QC): 6 Walk 50ft with 2 Turns (QC): 6 Walk 150 ft (QC): 6 Walking 10ft on Uneven Surface: 6 1 Step (curb) (QC): 6 4 Steps (QC): 6 12 Steps (QC): 6 Picking up an Object (QC): 6 Wheel 50 feet with 2 turns (QC: 9 Wheel 150 feet: 9 PT Plan Treatment/Plan Treatment Plan: Continue Plan of Care Treatment Plan: Education, Functional Activity Mauricio, Functional Strength, Group Therapy, Gait, Safety, Therapeutic Exercise, Transfers Treatment Duration: Feb 09, 2022 Frequency: At least 5 of 7 days/Wk (IRF) Estimated Hrs Per Day: 1.5 hours per day Patient and/or Family Agrees t: Yes Safety Risks/Education Patient Education: Gait Training, Transfer Techniques, Steps, Correct Positio av, Disease Process, Safety Issues Teaching Recipient: Patient Teaching Methods: Demonstration, Discussion Response to Teaching: Verbalize Understanding, Return Demonstration, Reinforcement Needed Time/GCodes Time In: 800 Time Out: 900 Total Billed Treatment Time: 60 Total Billed Treatment 1,GT20m,EX30m,FA10m MICHAELA SOLORZANO PTA Jan 23, 2022 08:59
[2022-01-23] MEDS: TAMSULOSIN 0.4 MG (FLOMAX) CAP PO SCH (09:23)
[2022-01-23] MEDS: ASPIRIN E.C. 81 MG (ECOTRIN) TAB PO SCH (09:24)
[2022-01-23] MEDS: ROSUVASTATIN 20 MG (CRESTOR) TABLET PO SCH (09:24)
[2022-01-23] MEDS: FERROUS SULF 325 MG (IRON) TAB PO SCH (09:24)
[2022-01-23] MEDS: DIPHENOXYLATE/ATROPINE 2.5MG/0.025MG (LOMOTIL) TAB PO SCH ×2 (09:24→20:44)
[2022-01-23] MEDS: LOPERAMIDE 2 MG (IMODIUM) TABLET PO SCH ×4 (09:24→20:45)
[2022-01-23] MEDS: ASCORBIC ACID (VIT C) 500 MG TABLET PO SCH (09:24)
[2022-01-23] MEDS: OMEGA 3 (FISH OIL) 1000 MG CAP PO SCH ×2 (09:24→20:44)
[2022-01-23] MEDS: LORATADINE (CLARITIN) 10 MG TAB PO SCH (09:24)
[2022-01-23] MEDS: PANTOPRAZOLE 40 MG (PROTONIX) TAB PO SCH (09:24)
[2022-01-23] MEDS: meTOprolol SUCCINATE 100 MG (TOPROL XL) TAB PO SCH (09:24)
[2022-01-23] MEDS: VITAMIN D3 25 MCG (1,000 UNITS) TABLET PO SCH (09:24)
[2022-01-23] MEDS: LIDOCAINE 4% (SALONPAS) PATCH TOP SCH (09:25)
[2022-01-23] MEDS: BACITRACIN OINTMENT 28 GM TUBE TP SCH ×2 (09:25→20:45)
--- NOTE | 2022-01-23 09:59 | Occupational Ther Daily Note ---
OT Current Status-Daily Note Subjective Pt alert, sitting in recliner. Pt agrees to therapy. No c/o pain. Mental Status/Objective Patient Orientation: Person, Place, Time, Situation Attachments: Colostomy/Ileostomy, IV ADL-Treatment Pt agrees to shower. Pt independent with shower. Independent with upper/lower body dressing. Pt able to doff sock by self with AE, dons socks(baseline). Pt independent standing at sink to complete own oral care and grooming. Independent with voiding. Pt and continue to be educated on completing ostomy care by wound care. After therapy, pt sitting in recliner with call light/phone in reach. All needs met. Therapy Code Descriptions/Definitions Functional [place] Measure: 0=Not Assessed/NA 4=Minimal Assistance 1=Total Assistance 5=Supervision or Setup 2=Maximal Assistance 6=Modified [place] 3=Moderate Assistance 7=Complete IndependenceSCALE: Activities may be completed with or without assistive devices. 9-Bvdwivlzmw-ujvacrm completes the activity by him/herself with no assistance from a helper. 5-Set-up or Clean-up Assistance-helper sets up or cleans up; patient completes activity. [place] assists only prior to or following the activity. 4-Supervision or Touching Assistance-helper provides verbal cues and/or touching/steadying and/or contact guard assistance as patient completes activity. Assistance may be provided throughout the activity or intermittently. 3-Partial/Moderate Assistance-helper does LESS THAN HALF the effort. [place] lifts, holds or supports trunk or limbs, but provides less than half the effort. 2-Substantial/Maximal Assistance-helper does MORE THAN HALF the effort. [place] lifts or holds trunk or limbs and provides more than half the effort. 8-Azzowpxdd-oqlpgf does ALL the effort. Patient does none of the effort to complete the activity. Or, the assistance of 2 or more helpers is required for the patient to complete the activity. If activity was not attempted, code reason: 7-Patient Refused. 9-Not Applicable-not attempted and the patient did not perform the activity be fore the current illness, exacerbation or injury. 10-Not Attempted due to Environmental Limitations-(lack of equipment, weather restraints, etc.). 88-Not Attempted due to Medical Conditions or Safety Concerns. Eating (QC): 6 Oral Hygiene (QC): 6 Shower/Bathe Self (QC): 6 Upper Body Dressing (QC): 6 Lower Body Dressing (QC): 6 On/Off Footwear: 3 Toileting Hygiene (QC): 6 (voiding only) Toilet Transfer (QC): 6 OT Short Term Goals Short Term Goals Time Frame: Jan 23, 2022 Eatin Oral hygiene: 6 Toileting hygiene: 5 Shower/bathe self: 4 Upper body dressin Lower body dressin Putting on/taking off footwear: 5 (shoes only) OT Dining Room Attendant Cafeteria Goals Dining Room Attendant Cafeteria Goals Time Frame: Jan 29, 2022 Eating (QC): 6 Oral Hygiene (QC): 6 Toileting Hygiene (QC): 5 (set up for colostomy) Shower/Bathe Self (QC): 5 Upper Body Dressing (QC): 6 Lower Body Dressing (QC): 6 On/Off Footwear (QC): 6 (shoes only) Add: Edema management to assist with use of L UE during ADLs- goal pt independent with HEP 1=Demonstrate adherence to instructed precautions during ADL tasks. 2=Patient will verbalize/demonstrate understanding of assistive devices/modifications for ADL. 3=Patient will improve strength/tolerance for activity to enable patient to perform ADL's. OT Education/Plan Problem List/Assessment Assessment: Impaired Self-Care Skills Discharge Recommendations Plan/Recommendations: Continue POC Treatment Plan/Plan of Care Patient would benefit from OT for education, treatment and training to promote independence in ADL's, mobility, safety and/or upper extremity function for ADL's. Plan of Care: ADL Retraining, Caregiver Training, Cognitive Retraining, Concurrent Therapy, Functional Mobility, Group Exercise/Act as Ind, UE Funct Exercise/Act Treatment Duration: Jan 29, 2022 Frequency: At least 5 of 7 days/Wk (IRF) Estimated Hrs Per Day: 1.5 hours per day (75-90 min/day ) Agreement: Yes Rehab Potential: Good Time/GCodes Start Time: 09:00 Stop Time: 10:15 Total Time Billed (hr/min): 75 Billed Treatment Time 1 visit-ADL 5 (75 min) SILVERIO PAL Jan 23, 2022 09:59
[2022-01-23] MEDS: DOCUSATE SODIUM 100 MG (COLACE) CAP PO SCH ×2 (10:42→21:21)
[2022-01-23] MEDS: polyethylene glycoL POWDER 17 GM (MIRALAX) PACK PO SCH ×2 (10:42→21:21)
[2022-01-23] MEDS: SENNA W/DOCUSATE (SENOKOT S) TABLET PO SCH ×2 (10:43→21:22)
[2022-01-23] MEDS: PRESERVISION AREDS SOFTGEL (BAUSH & LOMB) PO SCH (10:43)
--- NOTE | 2022-01-23 14:34 | Therapy Group Daily Note ---
Therapy Daily Group Note Patient Education Topic Home Safety Exercises Sit to/from Stand Session Ratio (pt:therapist): 4:1 Goal of Session: Education on ARU Expectations, Home Safety Strategies Goal Met for this Session: Yes Pt Benefit of Group: Contributions to Others, F/U Use of Strategies @Home, Increased Functional Safety, Socialization Other/Notes Pt participated in group PT OT session this date . Pt. ambulated from room to gym and back as well as from seat to activity board during group. Pt. introduced self and shared appropriately with group . Pts jined him for group session. Education regarding purpose and goals of ARU were explained, Home safety spanning many different topic was covered with pts sharing their strategies for home safety. Pts participated in memory activity matching images from memory. Pt. in room in chair after Rx lawson at hand, needs met Start Time: 13:00 Stop Time: 14:15 Total Billed Treatment Time: 75 Total Billed Treatment 1,GRP MICHAELA SOLORZANO COMMERCIAL LIGHT FIXTURE ASSEMBLER Jan 23, 2022 14:34
[2022-01-23] MEDS: diphenhydrAMINE 2% 30 GM CR (ALLERGY CREAM) TOP PRN ×2 (18:15→20:46)
[2022-01-23 20:14] VITALS: BP 124/59
[2022-01-23] MEDS: MONTELUKAST 10 MG (SINGULAIR) TAB PO SCH (20:45)
[2022-01-23] MEDS: LIDOCAINE PATCH REMOVAL TP SCH (21:22)
[2022-01-24] MEDS: MULTIVIT W/MINERALS TAB (THERAGRAN M) PO SCH (06:41)
[2022-01-24] MEDS: diphenhydrAMINE 2% 30 GM CR (ALLERGY CREAM) TOP PRN ×3 (06:45→20:31)
--- NOTE | 2022-01-24 06:54 | PM&R Progress Note ---
Subjective HPI/CC On Admission Date Seen by Provider: Jan 24, 2022 Time Seen by Provider: 11:00 Subjective/Events-last exam 01/24/2022: Doing well Output is pretty good from ileostomy Receiving 1 L of fluid today and will plan on Wednesday and Wednesday for few weeks Trying to prevent high output dehydration while he learns to increase his fluid intake 01/23/2022: Pt is doing a lot better Discharge on Wednesday Rash on back will require Benadryl cream Ostomy education went really well 100 CC output from ileostomy and 350 last night Will need IV fluids three times weekly to prevent dehydration 01/22/2022: Patient doing well HLIVF after this liter is complete Update patient on the O2 at night recs by Dr Ornelas Cognition will need to be monitored 01/21/2022: Doing well Increased output from ileostomy 700+ so will initiate IVF KU had delayed DC due to high output Improved otherwise 01/20/2022: Doing better Ileostomy functioning well Gaining strength Slept better last night Labs reviewed No pain Review of Systems General: Fatigue, Malaise Objective Exam Vital Signs Vital Signs Date Time Temp Pulse Resp B/P (MAP) Pulse Ox O2 Delivery O2 Flow Rate FiO2 01/24/22 08:41 Room Air 01/24/22 07:05 36.6 73 20 130/58 (82) 94 Capillary Refill : General Appearance: No Apparent Distress, WD/WN, Chronically ill HEENT: PERRL/EOMI, Normal ENT Inspection, Pharynx Normal Neck: Full Range of Motion, Normal Inspection, Non Tender, Supple, Carotid Bruit Respiratory: Chest Non Tender, Lungs Clear, Normal Breath Sounds, No Accessory Muscle Use, No Respiratory Distress Cardiovascular: Regular Rate, Rhythm, No Edema, No Gallop, No JVD, No Murmur, Normal Peripheral Pulses Gastrointestinal: Normal Bowel Sounds, No Organomegaly, No Pulsatile Mass, Non Tender, Soft Back: Normal Inspection, No CVA Tenderness, No Vertebral Tenderness Extremity: Normal Capillary Refill, Normal Inspection, Normal Range of Motion, Non Tender, No Calf Tenderness, No Pedal Edema Neurologic/Psychiatric: Alert, Oriented x3, assembly riveter II-XII Norm as Tested, Abnormal Gait, Depressed Affect, Motor Weakness (generalized) Skin: Normal Color, Warm/Dry Lymphatic: No Adenopathy Results/Procedures Lab Patient resulted labs reviewed. FIM Transfers Therapy Code Descriptions/Definitions Functional [place] Measure: 0=Not Assessed/NA 4=Minimal Assistance 1=Total Assistance 5=Supervision or Setup 2=Maximal Assistance 6=Modified [place] 3=Moderate Assistance 7=Complete IndependenceSCALE: Activities may be completed with or without assistive devices. 8-Hrlcqtpczu-cabverz completes the activity by him/herself with no assistance from a helper. 5-Set-up or Clean-up Assistance-helper sets up or cleans up; patient completes activity. [place] assists only prior to or following the activity. 4-Supervision or Touching Assistance-helper provides verbal cues and/or touching/steadying and/or contact guard assistance as patient completes activity. Assistance may be provided throughout the activity or intermittently. 3-Partial/Moderate Assistance-helper does LESS THAN HALF the effort. [place] lifts, holds or supports trunk or limbs, but provides less than half the effort. 2-Substantial/Maximal Assistance-helper does MORE THAN HALF the effort. [place] lifts or holds trunk or limbs and provides more than half the effort. 4-Oufeowexn-qgefbz does ALL the effort. Patient does none of the effort to complete the activity. Or, the assistance of 2 or more helpers is required for the patient to complete the activity. If activity was not attempted, code reason: 7-Patient Refused. 9-Not Applicable-not attempted and the patient did not perform the activity before the current illness, exacerbation or injury. 10-Not Attempted due to Environmental Limitations-(lack of equipment, weather restraints, etc.). 88-Not Attempted due to Medical Conditions or Safety Concerns. Roll Left to Right (QC): 6 Sit to Lying (QC): 6 Sit to Stand (QC): 6 Chair/Fjm-xh-Cuuga Xfer(QC): 6 Car Transfer (QC): 6 Gait Training Does the Patient Walk?: Yes Distance: 250', 150' Walk 10 feet (QC): 6 Walk 50 ft with 2 Turns(QC): 6 Walk 150 ft (QC): 6 Walking 10ft/uneven surface-QC: 4 Gait Persons Needed: 1 Gait Assistive Device: Cane Single Point Wheelchair Training Does the Pt Use a Wheelchair?: No Wheel 50 ft with 2 turns (QC): 9 Wheel 150 ft (QC): 9 Stair Training Stair Training: Handrails/: 2 handrails #of Steps: 8 1 Step (curb) (QC): 4 4 Steps (QC): 6 12 Steps (QC): 88 Stairs: Pattern: Reciprocal Balance Picking up an Object (QC): 6 ADL-Treatment Eating (QC): 6 Oral Hygiene (QC): 6 Shower/Bathe Self (QC): 6 Upper Body Dressing (QC): 6 Lower Body Dressing (QC): 6 On/Off Footwear (QC): 3 Toileting Hygiene (QC): 6 (voiding only) Toilet Transfer (QC): 6 Assessment/Plan Assessment and Plan Assess & Plan/Chief Complaint Assessment: Myopathy Rectal adenocarcinoma resection with ileostomy Long hamurphy COVID symptoms Weight loss 45 pounds BPH Anemia Ileostomy high output needing IVF 01/21/22 Nocturnal hypoxia per sleep study Dr Ornelas Plan: Monitor closely Home meds IRF protocol 01/20/2022: Monitor fluid intake Lomotil and Imodium 01/21/2022: IVF Monitor closely 01/22/2022: IVF heplock after this liter done 01/23/2022: IVF tomorrow Keep PICC at CO for IVF three times a week for a few weeks 01/24/2022: IV fluids today Discharge Wednesday (1) Colon cancer (2) COVID-19 long alessio (3) Weight loss (4) Advanced age (5) Weakness Status: FELIX Cleveland DO Jan 24, 2022 06:54
[2022-01-24] MEDS ORDERED: NS IV 1000 ML 1,000 ML IV SCH (07:00)
[2022-01-24 07:05] VITALS: BP 130/58
[2022-01-24] MEDS: ROSUVASTATIN 20 MG (CRESTOR) TABLET PO SCH (08:48)
[2022-01-24] MEDS: VITAMIN D3 25 MCG (1,000 UNITS) TABLET PO SCH (08:48)
[2022-01-24] MEDS: PANTOPRAZOLE 40 MG (PROTONIX) TAB PO SCH (08:49)
[2022-01-24] MEDS: LORATADINE (CLARITIN) 10 MG TAB PO SCH (08:49)
[2022-01-24] MEDS: TAMSULOSIN 0.4 MG (FLOMAX) CAP PO SCH (08:49)
[2022-01-24] MEDS: LIDOCAINE 4% (SALONPAS) PATCH TOP SCH (08:49)
[2022-01-24] MEDS: OMEGA 3 (FISH OIL) 1000 MG CAP PO SCH ×2 (08:49→20:30)
[2022-01-24] MEDS: ASCORBIC ACID (VIT C) 500 MG TABLET PO SCH (08:49)
[2022-01-24] MEDS: ASPIRIN E.C. 81 MG (ECOTRIN) TAB PO SCH (08:49)
[2022-01-24] MEDS: FERROUS SULF 325 MG (IRON) TAB PO SCH (08:49)
[2022-01-24] MEDS: BACITRACIN OINTMENT 28 GM TUBE TP SCH ×2 (08:50→20:30)
[2022-01-24] MEDS: DOCUSATE SODIUM 100 MG (COLACE) CAP PO SCH ×2 (08:54→20:40)
[2022-01-24] MEDS: polyethylene glycoL POWDER 17 GM (MIRALAX) PACK PO SCH ×2 (08:54→20:40)
[2022-01-24] MEDS: SENNA W/DOCUSATE (SENOKOT S) TABLET PO SCH ×2 (08:54→20:40)
[2022-01-24] MEDS: PRESERVISION AREDS SOFTGEL (BAUSH & LOMB) PO SCH (09:06)
[2022-01-24] MEDS: DIPHENOXYLATE/ATROPINE 2.5MG/0.025MG (LOMOTIL) TAB PO SCH ×2 (09:15→20:30)
[2022-01-24] MEDS: meTOprolol SUCCINATE 100 MG (TOPROL XL) TAB PO SCH (09:15)
[2022-01-24] MEDS: LOPERAMIDE 2 MG (IMODIUM) TABLET PO SCH ×4 (09:15→20:30)
--- NOTE | 2022-01-24 13:20 | Physical Therapy Daily Note ---
PT Daily Note-Current Subjective Pt sitting in recliner finishing lunch with Sp upon arrival. Pt reports feeling good about Therapy and anticipating d/c on Wednesday. Pain Location: No Pain Reported Mental Status Patient Orientation: Person, Place, Time, Situation Transfers SCALE: Activities may be completed with or without assistive devices. 8-Tywryjmolr-lfzukgx completes the activity by him/herself with no assistance from a helper. 5-Set-up or Clean-up Assistance-helper sets up or cleans up; patient completes activity. [place] assists only prior to or following the activity. 4-Supervision or Touching Assistance-helper provides verbal cues and/or touching/steadying and/or contact guard assistance as patient completes activity. Assistance may be provided throughout the activity or intermittently. 3-Partial/Moderate Assistance-helper does LESS THAN HALF the effort. [place] lifts, holds or supports trunk or limbs, but provides less than half the effort. 2-Substantial/Maximal Assistance-helper does MORE THAN HALF the effort. [place] lifts or holds trunk or limbs and provides more than half the effort. 2-Nlbadbhpw-nxpxka does ALL the effort. Patient does none of the effort to complete the activity. Or, the assistance of 2 or more helpers is required for the patient to complete the activity. If activity was not attempted, code reason: 7-Patient Refused. 9-Not Applicable-not attempted and the patient did not perform the activity before the current illness, exacerbation or injury. 10-Not Attempted due to Environmental Limitations-(lack of equipment, weather restraints, etc.). 88-Not Attempted due to Medical Conditions or Safety Concerns. Sit to Stand (QC): 6 Toilet Transfer (QC): 6 Weight Bearing Full Weight Bearing Full Weight Bearing Gait Training Does the Patient Walk?: Yes Distance: 15' Walk 10 feet (QC): 6 Gait Assistive Device: FWW Treatments TF to standing and amb. to BR. Pt completes pericare and returns to recliner. Pt reports not needing anything else at this time from Therapy. All needs met, call light in hand. Assessment Current Status: Good Progress Pt rey. tx well. PT Short Term Goals Short Term Goals Time Frame: Jan 26, 2022 Roll Left & Right: 6 Sit to lyin Lying to sitting on side of be: 6 Sit to stand: 5 Chair/jlo-gb-kglqk transfer: 5 Walk 10 feet: 5 Walk 50 feet with two turns: 5 Walk 150 feet: 5 PT Electronic Components Assembler Goals Assisted Goals PT Electronic Components Assembler Goals Time Frame: Feb 09, 2022 Roll Left & Right (QC): 6 Sit to Lying (QC): 6 Lying-Sitting on Side/Bed(QC): 6 Sit to Stand (QC): 6 Chair/Xoh-ac-Djnmf Xfer(QC): 6 Toilet Transfer (QC): 6 Car Transfer (QC): 6 Does the Patient Walk: Yes Walk 10 feet (QC): 6 Walk 50ft with 2 Turns (QC): 6 Walk 150 ft (QC): 6 Walking 10ft on Uneven Surface: 6 1 Step (curb) (QC): 6 4 Steps (QC): 6 12 Steps (QC): 6 Picking up an Object (QC): 6 Wheel 50 feet with 2 turns (QC: 9 Wheel 150 feet: 9 PT Plan Treatment/Plan Treatment Plan: Continue Plan of Care Treatment Plan: Education, Functional Activity Mauricio, Functional Strength, Group Therapy, Gait, Safety, Therapeutic Exercise, Transfers Treatment Duration: Feb 09, 2022 Frequency: At least 5 of 7 days/Wk (IRF) Estimated Hrs Per Day: 1.5 hours per day Patient and/or Family Agrees t: Yes Time/GCodes Time In: 1225 Time Out: 1240 Total Billed Treatment Time: 15 Total Billed Treatment 1MEREDITH (15m) RABIA VALENZUELA [employer] MARKETS SPECIALIST Jan 24, 2022 13:20
[2022-01-24] MEDS: MONTELUKAST 10 MG (SINGULAIR) TAB PO SCH (20:30)
[2022-01-24] MEDS: LIDOCAINE PATCH REMOVAL TP SCH (20:30)
[2022-01-24 20:53] VITALS: BP 125/60
--- NOTE | 2022-01-25 06:38 | PM&R Progress Note ---
Subjective HPI/CC On Admission Date Seen by Provider: Jan 25, 2022 Time Seen by Provider: 12:00 Subjective/Events-last exam 01/25/2022: Doing well Ready for DC tomorrow IVF MWF for 2 weeks should help prevent dehydration while he increased PO fluid 01/24/2022: Doing well Output is pretty good from ileostomy Receiving 1 L of fluid today and will plan on Wednesday and Wednesday for few weeks Trying to prevent high output dehydration while he learns to increase his fluid intake 01/23/2022: Pt is doing a lot better Discharge on Wednesday Rash on back will require Benadryl cream Ostomy education went really well 100 CC output from ileostomy and 350 last night Will need IV fluids three times weekly to prevent dehydration 01/22/2022: Patient doing well HLIVF after this liter is complete Update patient on the O2 at night recs by Dr Ornelas Cognition will need to be monitored 01/21/2022: Doing well Increased output from ileostomy 700+ so will initiate IVF KU had delayed DC due to high output Improved otherwise 01/20/2022: Doing better Ileostomy functioning well Gaining strength Slept better last night Labs reviewed No pain Review of Systems General: Fatigue, Malaise Objective Exam Vital Signs Vital Signs Date Time Temp Pulse Resp B/P (MAP) Pulse Ox O2 Delivery O2 Flow Rate FiO2 01/25/22 20:07 Room Air 01/25/22 20:00 36.6 65 18 116/57 (76) 96 Capillary Refill : General Appearance: No Apparent Distress, WD/WN, Chronically ill HEENT: PERRL/EOMI, Normal ENT Inspection, Pharynx Normal Neck: Full Range of Motion, Normal Inspection, Non Tender, Supple, Carotid Bruit Respiratory: Chest Non Tender, Lungs Clear, Normal Breath Sounds, No Accessory Muscle Use, No Respiratory Distress Cardiovascular: Regular Rate, Rhythm, No Edema, No Gallop, No JVD, No Murmur, Normal Peripheral Pulses Gastrointestinal: Normal Bowel Sounds, No Organomegaly, No Pulsatile Mass, Non Tender, Soft Back: Normal Inspection, No CVA Tenderness, No Vertebral Tenderness Extremity: Normal Capillary Refill, Normal Inspection, Normal Range of Motion, Non Tender, No Calf Tenderness, No Pedal Edema Neurologic/Psychiatric: Alert, Oriented x3, bandmill operator II-XII Norm as Tested, Abnormal Gait, Depressed Affect, Motor Weakness (generalized) Skin: Normal Color, Warm/Dry Lymphatic: No Adenopathy Results/Procedures Lab Patient resulted labs reviewed. FIM Transfers Therapy Code Descriptions/Definitions Functional [place] Measure: 0=Not Assessed/NA 4=Minimal Assistance 1=Total Assistance 5=Supervision or Setup 2=Maximal Assistance 6=Modified [place] 3=Moderate Assistance 7=Complete IndependenceSCALE: Activities may be completed with or without assistive devices. 7-Ykflrjavvt-rbiaglm completes the activity by him/herself with no assistance from a helper. 5-Set-up or Clean-up Assistance-helper sets up or cleans up; patient completes activity. [place] assists only prior to or following the activity. 4-Supervision or Touching Assistance-helper provides verbal cues and/or touching/steadying and/or contact guard assistance as patient completes activity. Assistance may be provided throughout the activity or intermittently. 3-Partial/Moderate Assistance-helper does LESS THAN HALF the effort. [place] lifts, holds or supports trunk or limbs, but provides less than half the effort. 2-Substantial/Maximal Assistance-helper does MORE THAN HALF the effort. [place] lifts or holds trunk or limbs and provides more than half the effort. 6-Wqhgdzbpp-ycbryx does ALL the effort. Patient does none of the effort to complete the activity. Or, the assistance of 2 or more helpers is required for the patient to complete the activity. If activity was not attempted, code reason: 7-Patient Refused. 9-Not Applicable-not attempted and the patient did not perform the activity before the current illness, exacerbation or injury. 10-Not Attempted due to Environmental Limitations-(lack of equipment, weather restraints, etc.). 88-Not Attempted due to Medical Conditions or Safety Concerns. Roll Left to Right (QC): 6 Sit to Lying (QC): 6 Sit to Stand (QC): 6 Chair/Hug-ks-Gzqdl Xfer(QC): 6 Car Transfer (QC): 6 Gait Training Does the Patient Walk?: Yes Distance: 15' Walk 10 feet (QC): 6 Walk 50 ft with 2 Turns(QC): 6 Walk 150 ft (QC): 6 Walking 10ft/uneven surface-QC: 4 Gait Persons Needed: 1 Gait Assistive Device: FWW Wheelchair Training Does the Pt Use a Wheelchair?: No Wheel 50 ft with 2 turns (QC): 9 Wheel 150 ft (QC): 9 Stair Training Stair Training: Handrails/: 2 handrails #of Steps: 8 1 Step (curb) (QC): 4 4 Steps (QC): 6 12 Steps (QC): 88 Stairs: Pattern: Reciprocal Balance Picking up an Object (QC): 6 ADL-Treatment Eating (QC): 6 Oral Hygiene (QC): 6 Shower/Bathe Self (QC): 6 Upper Body Dressing (QC): 6 Lower Body Dressing (QC): 6 On/Off Footwear (QC): 3 Toileting Hygiene (QC): 6 (voiding only) Toilet Transfer (QC): 6 Assessment/Plan Assessment and Plan Assess & Plan/Chief Complaint Assessment: Myopathy Rectal adenocarcinoma resection with ileostomy Mao mccallum COVID symptoms Weight loss 45 pounds BPH Anemia Ileostomy high output needing IVF 01/21/22 Nocturnal hypoxia per sleep study Dr Ornelas Plan: Monitor closely Home meds IRF protocol 01/20/2022: Monitor fluid intake Lomotil and Imodium 01/21/2022: IVF Monitor closely 01/22/2022: IVF heplock after this liter done 01/23/2022: IVF tomorrow Keep PICC at [place] for IVF three times a week for a few weeks 01/24/2022: IV fluids today Discharge Wednesday01/25/2022: IVF in morning at 0600 (1) Colon cancer (2) COVID-19 mao mccallum (3) Weight loss (4) Advanced age (5) Weakness Status: Acute FELIX CESAR DO Jan 25, 2022 06:38
[2022-01-25] MEDS: MULTIVIT W/MINERALS TAB (THERAGRAN M) PO SCH (06:56)
[2022-01-25 07:07] VITALS: BP 121/57
[2022-01-25] MEDS: diphenhydrAMINE 2% 30 GM CR (ALLERGY CREAM) TOP PRN ×2 (08:56→19:51)
[2022-01-25] MEDS: VITAMIN D3 25 MCG (1,000 UNITS) TABLET PO SCH (08:56)
[2022-01-25] MEDS: ROSUVASTATIN 20 MG (CRESTOR) TABLET PO SCH (08:56)
[2022-01-25] MEDS: LOPERAMIDE 2 MG (IMODIUM) TABLET PO SCH ×4 (08:57→19:50)
[2022-01-25] MEDS: ASPIRIN E.C. 81 MG (ECOTRIN) TAB PO SCH (08:57)
[2022-01-25] MEDS: TAMSULOSIN 0.4 MG (FLOMAX) CAP PO SCH (08:57)
[2022-01-25] MEDS: OMEGA 3 (FISH OIL) 1000 MG CAP PO SCH ×2 (08:57→19:50)
[2022-01-25] MEDS: DIPHENOXYLATE/ATROPINE 2.5MG/0.025MG (LOMOTIL) TAB PO SCH ×2 (08:57→19:50)
[2022-01-25] MEDS: meTOprolol SUCCINATE 100 MG (TOPROL XL) TAB PO SCH (08:57)
[2022-01-25] MEDS: LORATADINE (CLARITIN) 10 MG TAB PO SCH (08:57)
[2022-01-25] MEDS: PANTOPRAZOLE 40 MG (PROTONIX) TAB PO SCH (08:57)
[2022-01-25] MEDS: ASCORBIC ACID (VIT C) 500 MG TABLET PO SCH (08:57)
[2022-01-25] MEDS: LIDOCAINE 4% (SALONPAS) PATCH TOP SCH (08:58)
[2022-01-25] MEDS: FERROUS SULF 325 MG (IRON) TAB PO SCH (08:58)
[2022-01-25] MEDS: DOCUSATE SODIUM 100 MG (COLACE) CAP PO SCH ×2 (09:07→20:05)
[2022-01-25] MEDS: polyethylene glycoL POWDER 17 GM (MIRALAX) PACK PO SCH ×2 (09:08→20:05)
[2022-01-25] MEDS: BACITRACIN OINTMENT 28 GM TUBE TP SCH ×2 (09:08→19:51)
[2022-01-25] MEDS: SENNA W/DOCUSATE (SENOKOT S) TABLET PO SCH ×2 (11:54→20:06)
[2022-01-25] MEDS: PRESERVISION AREDS SOFTGEL (BAUSH & LOMB) PO SCH (11:55)
[2022-01-25] MEDS: MONTELUKAST 10 MG (SINGULAIR) TAB PO SCH (19:51)
[2022-01-25 20:00] VITALS: BP 116/57
[2022-01-25] MEDS: LIDOCAINE PATCH REMOVAL TP SCH (20:06)
[2022-01-26] MEDS ORDERED: NS IV 1000 ML 1,000 ML ONE (01:30)
[2022-01-26] MEDS: NS IV 1000 ML 1,000 ML IV SCH ×2 (01:39→01:41)
[2022-01-26] MEDS ORDERED: DIPH1TAB PO (05:40)
[2022-01-26] MEDS ORDERED: LOPE-175 PO (05:40)
[2022-01-26] MEDS ORDERED: TMSL.4C PO (05:40)
--- NOTE | 2022-01-26 05:43 | D/C HH Face to Face Order ---
D/C HH Face to Face Orders Reconcile Patient Problems Problems Reviewed?: Yes Instructions for Patient HH Patient Instructions/FollowUp: PCP 1 week Physician to follow Patient: [facility] Discharge Diet for Home: No Restrictions Patient Problems: Ileostomy Patient Data-Allergies,Ht & Wt Patient Allergies: Coded Allergies: albuterol (Verified Allergy, Unknown, Tachycardia , 01/19/22) aspartame (Verified Allergy, Unknown, Causes extreme brain fog per pt, 01/19/22) morphine (Verified Allergy, Unknown, 01/19/22) sucralose (Verified Allergy, Unknown, Splenda- heart racing, 01/19/22) Home Health Need/Face to Face Date of Face to Face: Jan 26, 2022 Clinical Findings: Generalized weakness and fatigue, Instability, Muscle weakness, Unsteady gait I have seen Pt huaj-qu-onva: Yes Discharged To: Home Diagnosis/Conditions: Ileostomy Patient is Homebound due to: [place] fall risk due to instabilty, Muscle weakness Homebound Status Due to the above stated illness, injury or surgical procedure (medical condition or diagnosis) and associated clinical findings, the patient is homebound because of his/her inability to leave home except with aid of a supportive device and/or person AND leaving the home requires a considerable and taxing effort or is medically contraindicated. Pt req the following assistanc: Walker Home Health Nursing Orders Home Health Services Order: Nursing Services, Clinical Lab Assistant-Evaluate & Treat, Physical Therapy-Evaluate & Treat Home Health Infusion Therapy Line Start Date: Jan 21, 2022 Certify Stmt I certify that this patient is under my care and that I, a nurse practitioner or a physician; a imaging assistant working with me, had a face to face encounter that - meets the physician face to face encounter requirements with this patient as dated. FELIX CESAR DO Jan 26, 2022 05:43
[2022-01-26] MEDS ORDERED: NORM50IV9 IV (05:46)
--- NOTE | 2022-01-26 05:46 | Discharge Summary ---
Diagnosis/Chief Complaint Date of Admission Jan 19, 2022 at 13:58 Date of Discharge Discharge Date: Jan 26, 2022 Discharge Diagnosis Assessment: Myopathy Rectal adenocarcinoma resection with ileostomy Mao cmcallum COVID symptoms Weight loss 45 pounds BPH Anemia Ileostomy high output needing IVF 01/21/22 Nocturnal hypoxia per sleep study Dr Ornelas Plan: Monitor closely Home meds IRF protocol 01/20/2022: Monitor fluid intake Lomotil and Imodium 01/21/2022: IVF Monitor closely 01/22/2022: IVF heplock after this liter done 01/23/2022: IVF tomorrow Keep PICC at IN for IVF three times a week for a few weeks 01/24/2022: IV fluids today Discharge Wednesday01/25/2022: IVF in morning at 0600 (1) Colon cancer (2) COVID-19 mao alessio (3) Weight loss (4) Advanced age (5) Weakness Status: Acute Discharge Summary Discharge Physical Examination Allergies: Coded Allergies: albuterol (Verified Allergy, Unknown, Tachycardia , 01/19/22) aspartame (Verified Allergy, Unknown, Causes extreme brain fog per pt, 01/19/22) morphine (Verified Allergy, Unknown, 01/19/22) sucralose (Verified Allergy, Unknown, Splenda- heart racing, 01/19/22) Vitals & I&Os Vital Signs Date Time Temp Pulse Resp B/P (MAP) Pulse Ox O2 Delivery O2 Flow Rate FiO2 01/26/22 13:54 36.7 65 16 139/61 93 Room Air General Appearance: Alert, Oriented X3, Cooperative Respiratory: Clear to Auscultation Cardiovascular: Regular Rate Neuro: Normal Gait, Normal Speech, Strength at 5/5 X4 Ext Psych/Mental Status: Mental Status NL Hospital Course Was the Problem List Reviewed?: Yes Pt had an uneventful 8 day hospital course after he was admitted from after a new ileostomy with high output issues. He did require IV fluids on a regular basis. Labs remain stable. He was able to regain much of his baseline function. Ambulatory with the use of therapy. He was deemed stable for discharge in improved condition. Labs (last 24 hrs) Laboratory Tests 01/20/22 05:28: White Blood Count 6.4, Red Blood Count 3.43L, Hemoglobin 11.0L, Hematocrit 33L, Mean Corpuscular Volume 97, Mean Corpuscular Hemoglobin 32, Mean Corpuscular Hemoglobin Concent 33, Red Cell Distribution Width 14.0, Platelet Count 293, Mean Platelet Volume 9.4, Immature Granulocyte % (Auto) 1, Neutrophils (%) (Auto) 65, Lymphocytes (%) (Auto) 14, Monocytes (%) (Auto) 17H, Eosinophils (%) (Auto) 3, Basophils (%) (Auto) 1, Neutrophils # (Auto) 4.2, Lymphocytes # (Auto) 0.9L, Monocytes # (Auto) 1.1H, Eosinophils # (Auto) 0.2, Basophils # (Auto) 0.0, Immature Granulocyte # (Auto) 0.1, Sodium Level 138, Potassium Level 3.7, Chloride Level 104, Carbon Dioxide Level 24, Anion Gap 10, Blood Urea Nitrogen 13, Creatinine 0.80, Estimat Glomerular Filtration Rate 87, BUN/Creatinine Ratio 16, Glucose Level 94, Calcium Level 9.0, Corrected Calcium 9.8, Total Bilirubin 0.5, Aspartate Amino Transf (AST/SGOT) 17, Alanine Aminotransferase (ALT/SGPT) 30, Alkaline Phosphatase 52, Total Protein 6.0L, Albumin 3.0L 01/22/22 06:17: White Blood Count 5.9, Red Blood Count 3.31L, Hemoglobin 10.5L, Hematocrit 32L, Mean Corpuscular Volume 97, Mean Corpuscular Hemoglobin 32, Mean Corpuscular Hemoglobin Concent 33, Red Cell Distribution Width 14.0, Platelet Count 286, Mean Platelet Volume 8.9L, Immature Granulocyte % (Auto) 0, Neutrophils (%) (Auto) 63, Lymphocytes (%) (Auto) 17, Monocytes (%) (Auto) 15H, Eosinophils (%) (Auto) 4, Basophils (%) (Auto) 1, Neutrophils # (Auto) 3.7, Lymphocytes # (Auto) 1.0, Monocytes # (Auto) 0.9, Eosinophils # (Auto) 0.2, Basophils # (Auto) 0.1, Immature Granulocyte # (Auto) 0.0, Sodium Level 137, Potassium Level 3.8, Chloride Level 106, Carbon Dioxide Level 22, Anion Gap 9, Blood Urea Nitrogen 9, Creatinine 0.83, Estimat Glomerular Filtration Rate 86, BUN/Creatinine Ratio 11, Glucose Level 113H, Calcium Level 8.5, Corrected Calcium 9.5, Total Bilirubin 0.4, Aspartate Amino Transf (AST/SGOT) 24, Alanine Aminotransferase (ALT/SGPT) 31, Alkaline Phosphatase 63, Total Protein 5.5L, Albumin 2.8L, Magnesium Level 1.6 01/26/22 05:00: White Blood Count 5.4, Red Blood Count 3.30L, Hemoglobin 10.4L, Hematocrit 32L, Mean Corpuscular Volume 98, Mean Corpuscular Hemoglobin 32, Mean Corpuscular Hemoglobin Concent 32, Red Cell Distribution Width 13.8, Platelet Count 279, Mean Platelet Volume 9.5, Immature Granulocyte % (Auto) 0, Neutrophils (%) (Aut o) 66, Lymphocytes (%) (Auto) 16, Monocytes (%) (Auto) 13H, Eosinophils (%) (Auto) 4, Basophils (%) (Auto) 1, Neutrophils # (Auto) 3.6, Lymphocytes # (Auto) 0.9L, Monocytes # (Auto) 0.7, Eosinophils # (Auto) 0.2, Basophils # (Auto) 0.0, Immature Granulocyte # (Auto) 0.0, Sodium Level 141, Potassium Level 3.7, Chloride Level 107, Carbon Dioxide Level 23, Anion Gap 11, Blood Urea Nitrogen 9, Creatinine 0.80, Estimat Glomerular Filtration Rate 87, BUN/Creatinine Ratio 11, Glucose Level 128H, Calcium Level 8.8, Corrected Calcium 9.8, Total Bilirubin 0.3, Aspartate Amino Transf (AST/SGOT) 23, Alanine Aminotransferase (ALT/SGPT) 25, Alkaline Phosphatase 54, Total Protein 5.9L, Albumin 2.8L Pending Labs Laboratory Tests 01/20/22 05:28: White Blood Count 6.4, Red Blood Count 3.43, Hemoglobin 11.0, Hematocrit 33, Mean Corpuscular Volume 97, Mean Corpuscular Hemoglobin 32, Mean Corpuscular Hemoglobin Concent 33, Red Cell Distribution Width 14.0, Platelet Count 293, Mean Platelet Volume 9.4, Immature Granulocyte % (Auto) 1, Neutrophils (%) (Auto) 65, Lymphocytes (%) (Auto) 14, Monocytes (%) (Auto) 17, Eosinophils (%) (Auto) 3, Basophils (%) (Auto) 1, Neutrophils # (Auto) 4.2, Lymphocytes # (Auto) 0.9, Monocytes # (Auto) 1.1, Eosinophils # (Auto) 0.2, Basophils # (Auto) 0.0, Immature Granulocyte # (Auto) 0.1, Sodium Level 138, Potassium Level 3.7, Chloride Level 104, Carbon Dioxide Level 24, Anion Gap 10, Blood Urea Nitrogen 13, Creatinine 0.80, Estimat Glomerular Filtration Rate 87, BUN/Creatinine Ratio 16, Glucose Level 94, Calcium Level 9.0, Corrected Calcium 9.8, Total Bilirubin 0.5, Aspartate Amino Transf (AST/SGOT) 17, Alanine Aminotransferase (ALT/SGPT) 30, Alkaline Phosphatase 52, Total Protein 6.0, Albumin 3.0 01/22/22 06:17: White Blood Count 5.9, Red Blood Count 3.31, Hemoglobin 10.5, Hematocrit 32, Mean Corpuscular Volume 97, Mean Corpuscular Hemoglobin 32, Mean Corpuscular Hemoglobin Concent 33, Red Cell Distribution Width 14.0, Platelet Count 286, Mean Platelet Volume 8.9, Immature Granulocyte % (Auto) 0, Neutrophils (%) (Auto) 63, Lymphocytes (%) (Auto) 17, Monocytes (%) (Auto) 15, Eosinophils (%) (Auto) 4, Basophils (%) (Auto) 1, Neutrophils # (Auto) 3.7, Lymphocytes # (Auto) 1.0, Monocytes # (Auto) 0.9, Eosinophils # (Auto) 0.2, Basophils # (Auto) 0.1, Immature Granulocyte # (Auto) 0.0, Sodium Level 137, Potassium Level 3.8, Chloride Level 106, Carbon Dioxide Level 22, Anion Gap 9, Blood Urea Nitrogen 9, Creatinine 0.83, Estimat Glomerular Filtration Rate 86, BUN/Creatinine Ratio 11, Glucose Level 113, Calcium Level 8.5, Corrected Calcium 9.5, Total Bilirubin 0.4, Aspartate Amino Transf (AST/SGOT) 24, Alanine Aminotransferase (ALT/SGPT) 31, Alkaline Phosphatase 63, Total Protein 5.5, Albumin 2.8, Magnesium Level 1.6 01/26/22 05:00: White Blood Count 5.4, Red Blood Count 3.30, Hemoglobin 10.4, Hematocrit 32, Mean Corpuscular Volume 98, Mean Corpuscular Hemoglobin 32, Mean Corpuscular Hemoglobin Concent 32, Red Cell Distribution Width 13.8, Platelet Count 279, Mean Platelet Volume 9.5, Immature Granulocyte % (Auto) 0, Neutrophils (%) (Auto) 66, Lymphocytes (%) (Auto) 16, Monocytes (%) (Auto) 13, Eosinophils (%) (Auto) 4, Basophils (%) (Auto) 1, Neutrophils # (Auto) 3.6, Lymphocytes # (Auto) 0.9, Monocytes # (Auto) 0.7, Eosinophils # (Auto) 0.2, Basophils # (Auto) 0.0, Immature Granulocyte # (Auto) 0.0, Sodium Level 141, Potassium Level 3.7, Chloride Level 107, Carbon Dioxide Level 23, Anion Gap 11, Blood Urea Nitrogen 9, Creatinine 0.80, Estimat Glomerular Filtration Rate 87, BUN/Creatinine Ratio 11, Glucose Level 128, Calcium Level 8.8, Corrected Calcium 9.8, Total Bilirubin 0.3, Aspartate Amino Transf (AST/SGOT) 23, Alanine Aminotransferase (ALT/SGPT) 25, Alkaline Phosphatase 54, Total Protein 5.9, Albumin 2.8 Discharge Home Medications: Active Scripts Active Sodium Chloride (Normal Saline) 50 Ml Bag 500 Ml IV UD infuse 500cc of Normal saline on 01/28/22, 01/30/22, 02/02/22, 02/04/22 and 02/06/22 wide open rate Flomax (Tamsulosin HCl) 0.4 Mg Cap 0.4 Mg PO DAILY Imodium A-D (Loperamide HCl) 2 Mg Capsule 4 Mg PO QID TAKES 2 (2MG) TABS Lomotil 2.5-0.025 mg Tablet (Diphenoxylate HCl/Atropine) 2.5 Mg-0.025 Mg Tablet 1 Each PO BID Reported Multivitamin 1 Each Tablet 1 Each PO DAILY Icaps Areds Softgel (Vit A/Vit C/Vit E/Zinc/Copper) 14,320-226 Capsule 1 Each PO DAILY Rosuvastatin Calcium 20 Mg Tablet 20 Mg PO DAILY Resveratrol 250 Mg Capsule 250 Mg PO DAILY Potassium (Potassium Citrate) 99 Mg Capsule 99 Mg PO HS Pantoprazole Sodium 40 Mg Tablet.dr 40 Mg PO DAILY [Richy Treeze] Liquid 1-2 Ea PO HS TAKES 1 TO 2 CAPFULS OTC SUPPLEMENT W/ VINEGAR,GURPREET,GARLIC [Cramp Defense Magnes] 3 Ea PO HS Montelukast Sodium 10 Mg Tablet 10 Mg PO DAILY Metoprolol Succinate 100 Mg Tab.er.24h 100 Mg PO DAILY Osteo Bi-Flex Caplet (Gluc/Jordan-MSM#1/C/Stalin/Wang/Bor) 750 Mg-644 Mg-30 Mg-1 Mg- 1.5 Mg Tablet 1 Each PO DAILY Fish Oil 1,000 mg Capsule ([place] 3 Polyunsat Fatty Acids) 340 Mg-1,000 Mg Cap 1,000 Mg PO BID Ferrous Gluconate 324 Mg (37.5 Mg Iron) Tablet 162 Mg PO DAILY TAKES OF A 324MG TAB Coq-10 (Ubidecarenone) 100 Mg Capsule 100 Mg PO DAILY Vitamin D3 (Cholecalciferol (Vitamin D3)) 25 Mcg (1000 Unit) Tablet 25 Mcg PO DAILY Cetirizine HCl 10 Mg Tablet 10 Mg PO DAILY Betamethasone Dipropionate 0.05 % Cream..g. 1 Applic TP DAILY PRN NO SPECIFIC APPLICATION AREA OR PRN USE LISTED ON KU DISCHARGE Aspirin EC (Aspirin) 81 Mg Tablet.dr 81 Mg PO DAILY TAKE WITH FOOD Vitamin C (Ascorbate Calcium) 500 Mg Tablet 500 Mg PO DAILY Tramadol HCl 50 Mg Tablet 50 Mg PO Q8H PRN [Magic Mouthwash] Susp 10 Ml TIDAC SWISH AND SWALLOW PER KU DISCHARGE: DIPHENHYDRAMINE/LICODAINE/ANTACID 1:1:1 Bacitracin 500 Unit/Gram Oint...g. 1 Applic TP BID APPLY TO TOP OF LEFT HAND WOUND Tylenol (Acetaminophen) 325 Mg Capsule 975 Mg PO Q8H PRN TAKES 3 (325MG) TABS Instructions to patient/family Please see electronic discharge instructions given to patient. 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
[2022-01-26 05:56] LABS: BASOPHILS % (AUTO) 1 % (0-10); EOSINOPHILS # (AUTO) 0.2 10^3/uL (0.0-0.3); EOSINOPHILS % (AUTO) 4 % (0-10); HEMATOCRIT 32 % (40-54); HEMOGLOBIN 10.4 g/dL (13.3-17.7); LYMPHOCYTES # (AUTO) 0.9 10^3/uL (1.0-4.0); LYMPHOCYTES % (AUTO) 16 % (12-44); MEAN CORPUSCULAR HEMOGLOBIN 32 pg (25-34); MEAN CORPUSCULAR HGB CONC 32 g/dL (32-36); MEAN CORPUSCULAR VOLUME 98 fL (80-99); MEAN PLATELET VOLUME 9.5 fL (9.0-12.2); MONOCYTES # (AUTO) 0.7 10^3/uL (0.0-1.0); MONOCYTES % (AUTO) 13 % (0-12); NEUTROPHILS # (AUTO) 3.6 10^3/uL (1.8-7.8); NEUTROPHILS % (AUTO) 66 % (42-75); PLATELET COUNT 279 10^3/uL (130-400); WHITE BLOOD COUNT 5.4 10^3/uL (4.3-11.0)
[2022-01-26 05:58] LABS: ALBUMIN 2.8 GM/DL (3.2-4.5); POTASSIUM 3.7 MMOL/L (3.6-5.0)
[2022-01-26 06:00] LABS: CALCIUM 8.8 MG/DL (8.5-10.1)
[2022-01-26 06:01] LABS: TOTAL PROTEIN 5.9 GM/DL (6.4-8.2)
[2022-01-26 06:03] LABS: BILIRUBIN,TOTAL 0.3 MG/DL (0.1-1.0)
[2022-01-26 06:04] LABS: CREATININE SERUM 0.8 MG/DL (0.60-1.30)
[2022-01-26] MEDS: MULTIVIT W/MINERALS TAB (THERAGRAN M) PO SCH (06:45)
[2022-01-26 07:29] VITALS: BP 139/61
--- NOTE | 2022-01-26 07:59 | Occupational Ther Daily Note ---
OT Current Status-Daily Note Subjective Pt alert, sitting in recliner. Pt agrees to therapy. No c/o pain. Pt going home today. Mental Status/Objective Patient Orientation: Person, Place, Time, Situation Attachments: IV ADL-Treatment Using SPC or furniture to ambulate around environment, independently. Pt agrees to shower. Pt is independent with all ADLs, except assistance from to don socks (baseline). After session, pt sitting in recliner with call light/phone in reach. All needs met. Therapy Code Descriptions/Definitions Functional [place] Measure: 0=Not Assessed/NA 4=Minimal Assistance 1=Total Assistance 5=Supervision or Setup 2=Maximal Assistance 6=Modified [place] 3=Moderate Assistance 7=Complete IndependenceSCALE: Activities may be completed with or without assistive devices. 1-Hxmafzrfbh-tgzzdwz completes the activity by him/herself with no assistance from a helper. 5-Set-up or Clean-up Assistance-helper sets up or cleans up; patient completes activity. [place] assists only prior to or following the activity. 4-Supervision or Touching Assistance-helper provides verbal cues and/or touching/steadying and/or contact guard assistance as patient completes activity. Assistance may be provided throughout the activity or intermittently. 3-Partial/Moderate Assistance-helper does LESS THAN HALF the effort. [place] lifts, holds or supports trunk or limbs, but provides less than half the effort. 2-Substantial/Maximal Assistance-helper does MORE THAN HALF the effort. [place] lifts or holds trunk or limbs and provides more than half the effort. 6-Wmchogyeg-miabng does ALL the effort. Patient does none of the effort to complete the activity. Or, the assistance of 2 or more helpers is required for the patient to complete the activity. If activity was not attempted, code reason: 7-Patient Refused. 9-Not Applicable-not attempted and the patient did not perform the activity before the current illness, exacerbation or injury. 10-Not Attempted due to Environmental Limitations-(lack of equipment, weather restraints, etc.). 88-Not Attempted due to Medical Conditions or Safety Concerns. Eating (QC): 6 Oral Hygiene (QC): 6 Shower/Bathe Self (QC): 6 Upper Body Dressing (QC): 6 Lower Body Dressing (QC): 6 On/Off Footwear: 6 (shoes) Toileting Hygiene (QC): 5 (Voiding independent. Set up per pt and nrsg notes for ostomy) Toilet Transfer (QC): 6 See nrsg notes for ostomy care. OT Short Term Goals Short Term Goals Time Frame: Jan 23, 2022 Eatin Oral hygiene: 6 Toileting hygiene: 5 Shower/bathe self: 4 Upper body dressin Lower body dressin Putting on/taking off footwear: 5 (shoes only) OT Assisted Goals Assisted Goals Time Frame: Jan 29, 2022 Eating (QC): 6 (met) Oral Hygiene (QC): 6 (met) Toileting Hygiene (QC): 5 (set up for colostomy-met) Shower/Bathe Self (QC): 5 (met) Upper Body Dressing (QC): 6 (met) Lower Body Dressing (QC): 6 (met) On/Off Footwear (QC): 6 (shoes only-met) Add: Edema management to assist with use of L UE during ADLs- goal pt independent with HEP 1=Demonstrate adherence to instructed precautions during ADL tasks. 2=Patient will verbalize/demonstrate understanding of assistive devices/modifications for ADL. 3=Patient will improve strength/tolerance for activity to enable patient to perform ADL's. OT Education/Plan Problem List/Assessment Assessment: Decreased Activ Tolerance Discharge Recommendations Plan/Recommendations: Discharge/Goals Met (pt discharging to home today) Treatment Plan/Plan of Care Patient would benefit from OT for education, treatment and training to promote i ndependence in ADL's, mobility, safety and/or upper extremity function for ADL's. Plan of Care: ADL Retraining, Caregiver Training, Cognitive Retraining, Concurrent Therapy, Functional Mobility, Group Exercise/Act as Ind, UE Funct Exe rcise/Act Treatment Duration: Jan 29, 2022 Frequency: At least 5 of 7 days/Wk (IRF) Estimated Hrs Per Day: 1.5 hours per day (75-90 min/day ) Agreement: Yes Rehab Potential: Good Time/GCodes Start Time: 07:30 Stop Time: 08:15 Total Time Billed (hr/min): 45 Billed Treatment Time 1 visit-ADL 3 (45 min) SILVERIO PAL Jan 26, 2022 07:59
[2022-01-26] MEDS: VITAMIN D3 25 MCG (1,000 UNITS) TABLET PO SCH (08:51)
[2022-01-26] MEDS: ROSUVASTATIN 20 MG (CRESTOR) TABLET PO SCH (08:51)
[2022-01-26] MEDS: FERROUS SULF 325 MG (IRON) TAB PO SCH (08:51)
[2022-01-26] MEDS: ASPIRIN E.C. 81 MG (ECOTRIN) TAB PO SCH (08:51)
[2022-01-26] MEDS: DIPHENOXYLATE/ATROPINE 2.5MG/0.025MG (LOMOTIL) TAB PO SCH (08:51)
[2022-01-26] MEDS: LIDOCAINE 4% (SALONPAS) PATCH TOP SCH (08:51)
[2022-01-26] MEDS: ASCORBIC ACID (VIT C) 500 MG TABLET PO SCH (08:51)
[2022-01-26] MEDS: LOPERAMIDE 2 MG (IMODIUM) TABLET PO SCH (08:51)
[2022-01-26] MEDS: PANTOPRAZOLE 40 MG (PROTONIX) TAB PO SCH (08:52)
[2022-01-26] MEDS: LORATADINE (CLARITIN) 10 MG TAB PO SCH (08:52)
[2022-01-26] MEDS: meTOprolol SUCCINATE 100 MG (TOPROL XL) TAB PO SCH (08:52)
[2022-01-26] MEDS: OMEGA 3 (FISH OIL) 1000 MG CAP PO SCH (08:52)
[2022-01-26] MEDS: TAMSULOSIN 0.4 MG (FLOMAX) CAP PO SCH (08:52)
[2022-01-26] MEDS: SENNA W/DOCUSATE (SENOKOT S) TABLET PO SCH (09:00)
[2022-01-26] MEDS: DOCUSATE SODIUM 100 MG (COLACE) CAP PO SCH (09:00)
[2022-01-26] MEDS: polyethylene glycoL POWDER 17 GM (MIRALAX) PACK PO SCH (09:00)
[2022-01-26] MEDS: PRESERVISION AREDS SOFTGEL (BAUSH & LOMB) PO SCH (09:00)
--- NOTE | 2022-01-26 10:17 | Physical Therapy Daily Note ---
PT Daily Note-Current Subjective Patient in recliner pre tx, agrees to PT, has no complaints of pain. Appearance Patient in recliner post tx with nurse call, phone, tray, all needs met. Mental Status Patient Orientation: Person, Place, Situation Attachments: IV Transfers SCALE: Activities may be completed with or without assistive devices. 8-Mgoorrpwrc-vbdhjfx completes the activity by him/herself with no assistance from a helper. 5-Set-up or Clean-up Assistance-helper sets up or cleans up; patient completes activity. [place] assists only prior to or following the activity. 4-Supervision or Touching Assistance-helper provides verbal cues and/or touching/steadying and/or contact guard assistance as patient completes activity. Assistance may be provided throughout the activity or intermittently. 3-Partial/Moderate Assistance-helper does LESS THAN HALF the effort. [place] lifts, holds or supports trunk or limbs, but provides less than half the effort. 2-Substantial/Maximal Assistance-helper does MORE THAN HALF the effort. [place] lifts or holds trunk or limbs and provides more than half the effort. 6-Qnjpexczu-bjqset does ALL the effort. Patient does none of the effort to complete the activity. Or, the assistance of 2 or more helpers is required for the patient to complete the activity. If activity was not attempted, code reason: 7-Patient Refused. 9-Not Applicable-not attempted and the patient did not perform the activity before the current illness, exacerbation or injury. 10-Not Attempted due to Environmental Limitations-(lack of equipment, weather restraints, etc.). 88-Not Attempted due to Medical Conditions or Safety Concerns. Roll Left & Right (QC): 6 Sit to Lying (QC): 6 Lying to Sitting/Side of Bed(Q: 6 Sit to Stand (QC): 6 Chair/Uqv-rv-Ssrpv Xfer(QC): 6 Toilet Transfer (QC): 6 Car Transfer (QC): 6 Patient performs rolling and supine <-> sit with independence, sit <-> stand and transfers independent, car transfer independent. Weight Bearing Full Weight Bearing Full Weight Bearing Gait Training Distance: 300', 120' Walk 10 feet (QC): 6 Walk 50 ft with 2 Turns(QC): 6 Walk 150 ft (QC): 6 Walking 10ft/uneven surface-QC: 6 Gait Assistive Device: Cane Single Point Patient can ambulate over 300' with a single point cane with independence (including 50' with at least 2 turns of 90 degrees and 10' over an uneven surface), gait is slow but steady Wheelchair Training Wheel 50 ft with 2 turns (QC): 9 Wheel 150 ft (QC): 9 Stair Training Stair Training: Handrails/: 2 handrails #of Steps: 12 1 Step (curb) (QC): 4 4 Steps (QC): 4 12 Steps (QC): 4 Stairs: Pattern: Reciprocal Patient can go up and down 12 steps using 2 handrails with SBA Balance Picking up an Object (QC): 6 (using a social media marketing analyst) Neuromuscular Patient scored 25/28 on the Tinetti Assessment Tool Treatments bed mobility and transfers, ambulation, stair training, gait training Assessment Current Status: Fair Progress independent with most mobility except SBA for stairs PT Short Term Goals Short Term Goals Time Frame: Jan 26, 2022 Roll Left & Right: 6 Sit to lyin Lying to sitting on side of be: 6 Sit to stand: 5 Chair/aqk-hi-tfojd transfer: 5 Walk 10 feet: 5 Walk 50 feet with two turns: 5 Walk 150 feet: 5 PT Curbing Stonecutter Goals Curbing Stonecutter Goals PT Curbing Stonecutter Goals Time Frame: Feb 09, 2022 Roll Left & Right (QC): 6 Sit to Lying (QC): 6 Lying-Sitting on Side/Bed(QC): 6 Sit to Stand (QC): 6 Chair/Plg-hq-Csykj Xfer(QC): 6 Toilet Transfer (QC): 6 Car Transfer (QC): 6 Does the Patient Walk: Yes Walk 10 feet (QC): 6 Walk 50ft with 2 Turns (QC): 6 Walk 150 ft (QC): 6 Walking 10ft on Uneven Surface: 6 1 Step (curb) (QC): 6 4 Steps (QC): 6 12 Steps (QC): 6 Picking up an Object (QC): 6 Wheel 50 feet with 2 turns (QC: 9 Wheel 150 feet: 9 PT Plan Problem List Problem List: Activity Tolerance, Functional Strength, Safety, Balance, Gait, Transfer, ROM Treatment/Plan Treatment Plan: Continue Plan of Care Treatment Plan: Education, Functional Activity Mauricio, Functional Strength, Group Therapy, Gait, Safety, Therapeutic Exercise, Transfers Treatment Duration: Feb 09, 2022 Frequency: At least 5 of 7 days/Wk (IRF) Estimated Hrs Per Day: 1.5 hours per day Patient and/or Family Agrees t: Yes Safety Risks/Education Patient Education: Gait Training, Transfer Techniques, Steps, Correct Positioning, Safety Issues Teaching Recipient: Patient Teaching Methods: Demonstration, Discussion Response to Teaching: Reinforcement Needed Time/GCodes Time In: 1000 Time Out: 1015 Total Billed Treatment Time: 15 Total Billed Treatment 1 visit FA Joanne' MARIAMA SHEPHERD PT Jan 26, 2022 10:17
[2022-01-26] MEDS: BACITRACIN OINTMENT 28 GM TUBE TP SCH (10:57)
[2022-01-26 13:54] VITALS: BP 139/61
--- NOTE | 2022-01-26 14:09 | Therapy Team Discharge Summary ---
Therapy Discharge Summary Discharge Recommendations Date of Discharge Therapy D/C Recommendations: Home w/ Family Support Physical Therapy Roll Left to Right (QC): 6 Sit to Lying (QC): 6 Lying to Sitting/Side of Bed(Q: 6 Sit to Stand (QC): 6 Chair/Hjf-rh-Qljbq Xfer(QC): 6 Toilet Transfer (QC): 6 Car Transfer (QC): 6 Does the Patient Walk: Yes Mode of Locomotion: Walk Anticipated Mode of Locomotion: Walk Walk 10 feet (QC): 6 Walk 50 ft with 2 Turns(QC): 6 Walk 150 ft (QC): 6 Walking 10ft on uneven surface: 6 Distance: 300'x2, 120' Gait Assistive Device: Cane Single Point Does the Pt Use a Wheelchair: No Wheel 50 ft with 2 turns (QC): 9 Wheel 150 ft (QC): 9 #of Steps: 12 1 Step (curb) (QC): 4 4 Steps (QC): 4 12 Steps (QC): 4 Balance Sitting Static: Normal Balance Sitting Dynamic: Normal Balance-Standing Static: Good Picking up an Object (QC): 6 (using a tripoler) Occupational Therapy Pt admitted to [facility] s/p Robot Assisted LAR w/diverting loop ileostomy. At time of evaluation, he was dependent for footwear, SBA for toileting, bathing, and lower body dressing and indep with upper body dressing, oral care and eating. During his rehab stay, OT focused on endurance, strength, flexibility, activity tolerance, balance and safety in order to improve performance and independence with self cares and functional mobility. Pt made good progress and met all of his terminal makeup operator goals. See below for current levels of assist. Pt will be discharging from this facility today and will be discharged from OT at this time. Decreased Activ Tolerance Eating (QC): 6 Oral Hygiene (QC): 6 Shower/Bathe Self (QC): 6 Upper Body Dressing (QC): 6 Lower Body Dressing (QC): 6 On/Off Footwear (QC): 6 (shoes) Toileting Hygiene (QC): 5 (Voiding independent. Set up per pt and nrsg notes for ostomy) PT Chcf Goals Music Promoter Goals PT Music Promoter Goals Time Frame: Feb 09, 2022 Roll Left to Right (QC): 6 Sit to Lying (QC): 6 Lying-Sitting on Side/Bed(QC): 6 Sit to Stand (QC): 6 Chair/Vrb-rc-Xbwut Xfer(QC): 6 Car Transfer (QC): 6 Does the Patient Walk: Yes Walk 10 feet (QC): 6 Walk 10ft-Uneven Surface(QC): 6 Walk 50ft with 2 Turns (QC): 6 Walk 150 ft (QC): 6 Wheel 50 feet with 2 turns (QC: 9 1 Step (curb) (QC): 6 4 Steps (QC): 6 12 Steps (QC): 6 Picking up an Object (QC): 6 OT Music Promoter Goals Chcf Goals Time Frame: Jan 29, 2022 Eating (FIM): 6 Eating (QC): 6 (met) Oral Hygiene (QC): 6 (met) Shower/Bathe Self (QC): 5 (met) Upper Body Dressing (QC): 6 (met) Lower Body Dressing (QC): 6 (met) On/Off Footwear (QC): 6 (shoes only-met) Toileting(FIM): 6 Toileting Hygiene (QC): 5 (set up for colostomy-met) Toilet/Commode Transfer (QC): 6 (met) Add: Edema management to assist with use of L UE during ADLs- goal pt independent with HEP 1=Demonstrate adherence to instructed precautions during ADL tasks. 2=Patient will verbalize/demonstrate understanding of assistive devices/modifications for ADL. 3=Patient will improve strength/tolerance for activity to enable patient to perform ADL's. Umu Barney OT Jan 26, 2022 14:09
--- NOTE | 2022-01-26 15:28 | Therapy Team Discharge Summary ---
Therapy Discharge Summary Discharge Recommendations Date of Discharge Jan 26, 2022 at 13:54 Therapy D/C Recommendations: Home w/ Family Support Physical Therapy Patient came to rehab with RECTAL CANCER S/P RESECTION WITH DIVERTING LOOP ILEOSTOMY. Upon evaluation patient performs rolling and supine <-> sit with independence, sit <-> stand and transfers SBA, car transfer SBA, ambulate 300' with a rolling walker with SBA (including 50' with at least 2 turns of 90 degrees and 10' over an uneven surface), went up and down 4 steps using 2 handrails with SBA, and picked up an object from the floor using a storage wharfage clerk with SBA. Patient has been performing bed mobility and transfer training, balance and endurance training, functional strengthening, stair training, gait training, and education. Patient has made good progress and has met all of his retirement goals except for stairs. Now, patient performs rolling and supine <-> sit with independence, sit <-> stand and transfers independent, car transfer independent, ambulate over 300' with a single point cane with independence (including 50' with at least 2 turns of 90 degrees and 10' over an uneven surface), can go up and down 12 steps using 2 handrails with SBA, and can supervisor picking crew an object from the floor using a storage wharfage clerk with independence. Patient has been discharged from this facility and will be discharged from PT at this time. Roll Left to Right (QC): 6 Sit to Lying (QC): 6 Lying to Sitting/Side of Bed(Q: 6 Sit to Stand (QC): 6 Chair/Kcw-zf-Liyxk Xfer(QC): 6 Toilet Transfer (QC): 6 Car Transfer (QC): 6 Does the Patient Walk: Yes Mode of Locomotion: Walk Anticipated Mode of Locomotion: Walk Walk 10 feet (QC): 6 Walk 50 ft with 2 Turns(QC): 6 Walk 150 ft (QC): 6 Walking 10ft on uneven surface: 6 Distance: 300'x2, 120' Gait Assistive Device: Cane Single Point Does the Pt Use a Wheelchair: No Wheel 50 ft with 2 turns (QC): 9 Wheel 150 ft (QC): 9 #of Steps: 12 1 Step (curb) (QC): 4 4 Steps (QC): 4 12 Steps (QC): 4 Balance Sitting Static: Normal Balance Sitting Dynamic: Normal Balance-Standing Static: Good Picking up an Object (QC): 6 (using a storage wharfage clerk) Occupational Therapy Decreased Activ Tolerance Eating (QC): 6 Oral Hygiene (QC): 6 Shower/Bathe Self (QC): 6 Upper Body Dressing (QC): 6 Lower Body Dressing (QC): 6 On/Off Footwear (QC): 6 (shoes) Toileting Hygiene (QC): 5 (Voiding independent. Set up per pt and nrsg notes for ostomy) PT Data Compiler Goals Skilled Nursing Goals PT Skilled Nursing Goals Time Frame: Feb 09, 2022 Roll Left to Right (QC): 6 Sit to Lying (QC): 6 Lying-Sitting on Side/Bed(QC): 6 Sit to Stand (QC): 6 Chair/Qys-ra-Lqhuy Xfer(QC): 6 Car Transfer (QC): 6 Does the Patient Walk: Yes Walk 10 feet (QC): 6 Walk 10ft-Uneven Surface(QC): 6 Walk 50ft with 2 Turns (QC): 6 Walk 150 ft (QC): 6 Wheel 50 feet with 2 turns (QC: 9 1 Step (curb) (QC): 6 4 Steps (QC): 6 12 Steps (QC): 6 Picking up an Object (QC): 6 OT Data Compiler Goals Data Compiler Goals Time Frame: Jan 29, 2022 Eating (FIM): 6 Eating (QC): 6 (met) Oral Hygiene (QC): 6 (met) Shower/Bathe Self (QC): 5 (met) Upper Body Dressing (QC): 6 (met) Lower Body Dressing (QC): 6 (met) On/Off Footwear (QC): 6 (shoes only-met) Toileting(FIM): 6 Toileting Hygiene (QC): 5 (set up for colostomy-met) Toilet/Commode Transfer (QC): 6 (met) Add: Edema management to assist with use of L UE during ADLs- goal pt indep endent with HEP 1=Demonstrate adherence to instructed precautions during ADL tasks. 2=Patient will verbalize/demonstrate understanding of assistive devices/modifications for ADL. 3=Patient will improve strength/tolerance for activity to enable patient to p erform ADL's. MARIAMA SHEPHERD PT Jan 26, 2022 15:28
== END 2022-01-26 13:54 | disposition home health service (06) | DRG 92 ==
PROVIDERS: ADMIT Internal Medicine; ATTEND Internal Medicine
DX: G72.89 Other specified myopathies (principal); C20 Malignant neoplasm of rectum; I10 Essential (primary) hypertension; N40.0 Benign prostatic hyperplasia without lower urinary tract symptoms; U09.9 Post COVID-19 condition, unspecified; R63.4 Abnormal weight loss; R54 Age-related physical debility; R19.7 Diarrhea, unspecified; K21.9 Gastro-esophageal reflux disease without esophagitis; E78.5 Hyperlipidemia, unspecified; R13.10 Dysphagia, unspecified; D50.0 Iron deficiency anemia secondary to blood loss (chronic); J30.2 Other seasonal allergic rhinitis; G47.34 Idiopathic sleep related nonobstructive alveolar hypoventilation; R21 Rash and other nonspecific skin eruption; Z93.2 Ileostomy status; Z90.49 Acquired absence of other specified parts of digestive tract; Z79.899 Other long term (current) drug therapy; Z79.82 Long term (current) use of aspirin; Z88.8 Allergy status to other drugs, medicaments and biological substances; Z88.5 Allergy status to narcotic agent; Z68.33 Body mass index [BMI] 33.0-33.9, adult
CPT/HCPCS: 36410; 36415; 76937; 80053; 83735; 85025

== ENCOUNTER 2022-06-04 10:07 | Outpatient (RCR) | payer MEDICARE, OTHER ==
[~2022-06-04 10:07] MED LIST changes: +ACET-704 PO; +ACET325C7 PO; +ASCO-262 PO; +ASPI-1238 PO; +BACI28.4 TP; +BETA15CR4 TP; +CETI10TA17 PO; +CHOL10004 PO; +DIPH1TAB PO; +FERR324T22 PO; +GLUC-174 PO; +LOPE-175 PO; +MAGIC MOUTHWASH; +MONT-40 PO; +MTP100TCR PO; +MULT-1136 PO; +NORM50IV9 IV; +OMG1KC PO; +PANT40TA52 PO; +POTA99CA PO; +RESV250C2 PO; +ROSU20TA32 PO; +TMSL.4C PO; +TRM50T PO; +UBID100C17 PO; +VIT1CAPS40 PO; +[UNRECOGNIZED DRUG - OTHER] PO; +[UNRECOGNIZED DRUG - REMARK] PO
== END 2022-06-20 | disposition home or self-care (01) ==
LOC: ONC 10:07
PROVIDERS: ATTEND Radiology Radiation Oncology
DX: C19 Malignant neoplasm of rectosigmoid junction (principal); I10 Essential (primary) hypertension; E78.2 Mixed hyperlipidemia; I25.10 Atherosclerotic heart disease of native coronary artery without angina pectoris
CPT/HCPCS: 99213

== ENCOUNTER 2023-04-09 20:40 | Observation (INO) | payer MEDICARE, OTHER ==
[~2023-04-09] VITALS: Ht 167.7 cm; Wt 93.2 kg
[~2023-04-09 20:40] MED LIST changes: -ROSU20TA32 PO; +ROSU20TA73 PO
[2023-04-09] MEDS ORDERED: dilTIAZem INJ 25 MG/5 ML VIAL IVP STA (20:55)
[2023-04-09] MEDS ORDERED: ENOXAPARIN 100 MG/1 ML SYRINGE SC STA (20:55)
[2023-04-09] MEDS ORDERED: dilTIAZem IV FOR DRIP 125 MG in NS (IVPB) 100 ML 100 ML IV STA (20:55)
--- NOTE | 2023-04-09 21:03 | ED Cardiac General ---
History of Present Illness General Chief Complaint: Cardiac/General Problems Stated Complaint: IRREGULAR HEART BEAT Source: patient History of Present Illness Date Seen by Provider: Apr 09, 2023 Time Seen by Provider: 20:46 Initial Comments 87-year-old male presenting with complaints of near syncope 20 to 30 minutes prior to arrival. He feels like his heart is racing and beating irregular in his chest. He feels very fatigued and rundown. He states that he has long CO VID and has gotten easily fatigued ever since he had labs. He had been doing more today trying to prepare for an upcoming move. He denied having chest pain, nausea, vomiting, abdominal pain, shortness of breath. He denies having a history of atrial fibrillation or irregular heartbeat. Timing/Duration: 1/2 hour Severity: moderate Prior CP/Workup: non-cardiac NTG SL RESAWYER: No ASA po RESAWYER: No Associated Systoms: No Chest Pain, No Cough, No Diaphoresis, No Fever/Chills, No Headaches, No Loss of Appetite, No Malaise, No Nausea/Vomiting, No Rash, No Seizure, No Shortness of Air; Syncope (Near syncope); No Weakness Allergies and Home Medications Allergies Coded Allergies: albuterol (Verified Allergy, Unknown, Tachycardia , 01/19/22) aspartame (Verified Allergy, Unknown, Causes extreme brain fog per pt, 01/19/22) morphine (Verified Allergy, Unknown, 01/19/22) sucralose (Verified Allergy, Unknown, Splenda- heart racing, 01/19/22) Patient Home Medication List Home Medication List Reviewed: Yes Acetaminophen (Tylenol) 325 Mg Capsule, 975 MG PO Q8H PRN for PAIN-MILD (1-4), (Reported) Entered as Reported by: LYNSEY FERRIS on 01/19/22 1252 Ascorbate Calcium (Vitamin C) 500 Mg Tablet, 500 MG PO DAILY, (Reported) Entered as Reported by: LYNSEY FERRIS on 01/19/22 1252 Aspirin (Aspirin EC) 81 Mg Tablet.dr, 81 MG PO DAILY, (Reported) Entered as Reported by: LYNSEY FERRIS on 01/19/22 1252 Bacitracin (Bacitracin) 500 Unit/Gram Oint...g., 1 APPLIC TP BID, (Reported) Entered as Reported by: LYNSEY FERRIS on 01/19/22 1252 Betamethasone Dipropionate (Betamethasone Dipropionate) 0.05 % Cream..g., 1 APPLIC TP DAILY PRN for SKIN CONDITIONS, (Reported) Entered as Reported by: LYNSEY FERRIS on 01/19/22 1252 Cetirizine HCl (Cetirizine HCl) 10 Mg Tablet, 10 MG PO DAILY, (Reported) Entered as Reported by: LYNSEY FERRIS on 01/19/22 1252 Cholecalciferol (Vitamin D3) (Vitamin D3) 25 Mcg (1000 Unit) Tablet, 25 MCG PO DAILY, (Reported) Entered as Reported by: LYNSEY FERRIS on 01/19/22 1252 Diphenoxylate HCl/Atropine (Lomotil 2.5-0.025 mg Tablet) 2.5 Mg-0.025 Mg Tablet, 1 EACH PO BID Prescribed by: FELIX CESAR on 01/26/22 0541 Ferrous Gluconate (Ferrous Gluconate) 324 Mg (37.5 Mg Iron) Tablet, 162 MG PO DAILY, (Reported) Entered as Reported by: LYNSEY FERRIS on 01/19/22 1252 Gluc/Jordan-MSM#1/C/Stalin/Wang/Bor (Osteo Bi-Flex Caplet) 750 Mg-644 Mg-30 Mg-1 Mg- 1.5 Mg Tablet, 1 EACH PO DAILY, (Reported) Entered as Reported by: LYNSEY FERRIS on 01/19/22 1252 Loperamide HCl (Imodium A-D) 2 Mg Capsule, 4 MG PO QID Prescribed by: FELIX CESAR on 01/26/22 0540 Metoprolol Succinate (Metoprolol Succinate) 100 Mg Tab.er.24h, 100 MG PO DAILY, (Reported) Entered as Reported by: LYNSEY FERRIS on 01/19/22 1252 Montelukast Sodium (Montelukast Sodium) 10 Mg Tablet, 10 MG PO DAILY, (Reported) Entered as Reported by: LYNSEY FERRIS on 01/19/22 1252 Multivitamin (Multivitamin) 1 Each Tablet, 1 EACH PO DAILY, (Reported) Entered as Reported by: LYNSEY FERRIS on 01/19/22 1256 Normal Saline (Sodium Chloride) 50 Ml Bag, 500 ML IV UD Prescribed by: FELIX CESAR on 01/26/22 0546 Hubbell 3 Polyunsat Fatty Acids (Fish Oil 1,000 mg Capsule) 340 Mg-1,000 Mg Cap, 1,000 MG PO BID, (Reported) Entered as Reported by: LYNSEY FERRIS on 01/19/221251 Pantoprazole Sodium (Pantoprazole Sodium) 40 Mg Tablet.dr, 40 MG PO DAILY, (Reported) Entered as Reported by: LYNSEY FERRIS on 01/19/221251 Potassium Citrate (Potassium) 99 Mg Capsule, 99 MG PO HS, (Reported) Entered as Reported by: LYNSEY FERRIS on 01/19/221251 Resveratrol (Resveratrol) 250 Mg Capsule, 250 MG PO DAILY, (Reported) Entered as Reported by: LYNSEY FERRIS on 01/19/221251 Rosuvastatin Calcium (Rosuvastatin Calcium) 20 Mg Tablet, 20 MG PO DAILY, (Reported) Entered as Reported by: LYNSEY FERRIS on 01/19/22 125 Tamsulosin HCl (Flomax) 0.4 Mg Cap, 0.4 MG PO DAILY Prescribed by: FELIX CESAR on 01/26/22 05 Tramadol HCl (Tramadol HCl) 50 Mg Tablet, 50 MG PO Q8H PRN for PAIN-MODERATE (5- 7), (Reported) Entered as Reported by: LYNSEY FERRIS on 01/19/221251 Ubidecarenone (Coq-10) 100 Mg Capsule, 100 MG PO DAILY, (Reported) Entered as Reported by: LYNSEY FERRIS on 01/19/221251 Vit A/Vit C/Vit E/Zinc/Copper (Icaps Areds Softgel) 14,320-226 Capsule, 1 EACH PO DAILY, (Reported) Entered as Reported by: LYNSEY FERRIS on 01/19/221251 [Richy Treeze] LIQUID, 1-2 EA PO HS, (Reported) Entered as Reported by: LYNSEY FERRIS on 01/19/221251 [Cramp Defense Magnes] , 3 EA PO HS, (Reported) Entered as Reported by: LYNSEY FERRIS on 01/19/221251 [Magic Mouthwash] SUSP, 10 ML TIDAC, (Reported) Entered as Reported by: LYNSEY FERRIS on 01/19/221251 Review of Systems Review of Systems Constitutional: No chills, No fever EENTM: No Symptoms Reported Respiratory: No Symptoms Reported Cardiovascular: See HPI Gastrointestinal: No Symptoms Reported Genitourinary: No Symptoms Reported Musculoskeletal: no symptoms reported Skin: no symptoms reported Psychiatric/Neurological: See HPI Past Hqosnzi-Jvjpmc-Ejpckm Hx Patient Social History Tobacco Use?: No Use of E-Cig and/or Vaping dev: No Substance use?: No Seasonal Allergies Seasonal Allergies: No Past Medical History Surgery/Hospitalization HX: HTN, HIGH CHOLESTEROL, RECTAL CANCER, "KIDNEY STONE SURGERY", RIGHT ANKLE SURGERY, TONSILLECTOMY, APPENDECTOMY, CHRONIC COUGH, PNEUMONIA. Surgeries: Yes (Right ankle repair, Kidney stone retrieval) Abdominal, Appendectomy, Orthopedic, Tonsillectomy Respiratory: No Cardiac: Yes Hypertension Neurological: No Genitourinary: Yes Benign Prostatic Hyperpl Gastrointestinal: No Musculoskeletal: No Endocrine: No HEENT: No Cancer: No Psychosocial: No Blood Disorders: No Physical Exam Vital Signs Vital Signs - First Documented 04/09/23 20:48 Temp 37.1 Pulse 141 Resp 24 B/P (MAP) 166/76 (106) Pulse Ox 96 O2 Delivery Room Air Capillary Refill : Height, Weight, BMI Height: '" Weight: lbs. oz. kg; 33.81 BMI Method: General Appearance: No Apparent Distress, WD/WN HEENT: PERRL/EOMI, Pharynx Normal Respiratory: Chest Non Tender, Lungs Clear, Normal Breath Sounds, No Accessory Muscle Use, No Respiratory Distress Cardiovascular: No Murmur, Normal Peripheral Pulses, Irregularly Irregular, Tachycardia Gastrointestinal: Normal Bowel Sounds, No Pulsatile Mass, Non Tender, Soft Rectal: Deferred Extremity: Normal Capillary Refill, Normal Inspection, No Pedal Edema Neurologic/Psychiatric: Alert, Oriented x3, turf sales person II-XII Norm as Tested Skin: Normal Color, Warm/Dry Progress/Results/Core Measures Results/Orders Lab Results Laboratory Tests Test 04/09/23 20:55 Range/Units White Blood Count 6.6 4.3-11.0 10^3/uL Red Blood Count 4.18 L 4.30-5.52 10^6/uL Hemoglobin 12.6 L 13.3-17.7 g/dL Hematocrit 40 40-54 % Mean Corpuscular Volume 95 80-99 fL Mean Corpuscular Hemoglobin 30 25-34 pg Mean Corpuscular Hemoglobin Concent 32 32-36 g/dL Red Cell Distribution Width 14.6 H 10.0-14.5 % Platelet Count 191 130-400 10^3/uL Mean Platelet Volume 9.9 9.0-12.2 fL Immature Granulocyte % (Auto) 0 % Neutrophils (%) (Auto) 60 42-75 % Lymphocytes (%) (Auto) 25 12-44 % Monocytes (%) (Auto) 11 0-12 % Eosinophils (%) (Auto) 3 0-10 % Basophils (%) (Auto) 1 0-10 % Neutrophils # (Auto) 4.0 1.8-7.8 10^3/uL Lymphocytes # (Auto) 1.7 1.0-4.0 10^3/uL Monocytes # (Auto) 0.7 0.0-1.0 10^3/uL Eosinophils # (Auto) 0.2 0.0-0.3 10^3/uL Basophils # (Auto) 0.0 0.0-0.1 10^3/uL Immature Granulocyte # (Auto) 0.0 0.0-0.1 10^3/uL Prothrombin Time 13.0 12.2-14.7 SEC INR Comment 0.9 0.8-1.4 Activated Partial Thromboplast Time 36 H 24-35 SEC Sodium Level 140 135-145 MMOL/L Potassium Level 3.9 3.6-5.0 MMOL/L Chloride Level 103 98-107 MMOL/L Carbon Dioxide Level 25 21-32 MMOL/L Anion Gap 12 5-14 MMOL/L Blood Urea Nitrogen 17 7-18 MG/DL Creatinine 1.07 0.60-1.30 MG/DL Estimat Glomerular Filtration Rate 68 BUN/Creatinine Ratio 16 Glucose Level 196 H 70-105 MG/DL Calcium Level 9.2 8.5-10.1 MG/DL Corrected Calcium 9.2 8.5-10.1 MG/DL Magnesium Level 2.1 1.6-2.4 MG/DL Total Bilirubin 0.4 0.1-1.0 MG/DL Aspartate Amino Transf (AST/SGOT) 18 5-34 U/L Alanine Aminotransferase (ALT/SGPT) 19 0-55 U/L Alkaline Phosphatase 91 40-136 U/L Troponin I < 0.30 <0.30 NG/ML Pro-B-Type Natriuretic Peptide 297.5 <450.0 PG/ML Total Protein 7.4 6.4-8.2 GM/DL Albumin 4.0 3.2-4.5 GM/DL Lipase 32 8-78 U/L My Orders Orders - TIARRA CORDOBA MD Cbc And Automated Diff (04/09/23 20:46) Magnesium (04/09/23 20:46) Ekg Tracing (04/09/23 20:46) Comprehensive Metabolic Panel (04/09/23 20:46) Protime With Inr (04/09/23 20:46) Partial Thromboplastin Time (04/09/23 20:46) O2 (04/09/23 20:46) Monitor-Rhythm Ecg Trace Only (04/09/23 20:46) Ed Iv/Invasive Line Start (04/09/23 20:46) Lipase (04/09/23 20:46) Troponin I Fs (04/09/23 20:46) Probnp Fs (04/09/23 20:46) Chest 1 View Ap/Pa Only (04/09/23 20:55) Diltiazem Injection (Diltiazem Injection (04/09/23 20:55) Ns (Ivpb) 100 Ml (S... W/Diltiazem Iv Fo (04/09/23 20:55) Enoxaparin Injection (Enoxaparin Injecti (04/09/23 20:55) Diltiazem Drip Pre-Mix (Diltiazem Drip P (04/09/23 21:09) Ed Admission (Communication) (04/09/23 21:52) Medications Given in ED Current Medications Medications Dose Ordered Sig/Liliana Route Start Time Stop Time Status Last Admin Dose Admin Diltiazem HCl 125 ml @ ud STK-MED ONCE IV 04/09/23 21:09 04/09/23 21:13 DC 04/09/23 21:15 5 MLS/HR Vital Signs/I&O 04/09/23 04/09/23 04/09/23 04/09/23 20:48 21:07 21:15 22:48 Temp 37.1 Pulse 141 120 116 120 Resp 24 14 B/P (MAP) 166/76 (106) 148/83 146/86 126/66 Pulse Ox 96 96 O2 Delivery Room Air Room Air Admisison Planning May Need Admission (Planning): 20:50 Progress Progress Note #1: Progress Note Differential diagnosis of new onset atrial fibrillation, myocardial infarction, pneumonia, electrolyte imbalance. Placed on cardiac nurse monitoring and my initial interpretation is atrial fibrillation with rapid ventricular response and heart rate in the 130s. Obtain electrocardiogram to look more specifically at his rate and rhythm and look for ischemia. Initiate peripheral IV access and send labs for complete blood count, comprehensive metabolic profile, lipase, magnesium, coagulation factors, troponin, proBNP. Initial blood pressure is 167/84. Ordered diltiazem 10 mg IV bolus dose followed by a drip to help with his rate and rhythm. Administer Lovenox 1 mg/kg or 90 mg subcu x1 as a blood thinner since unsure how long he might have been in the atrial fibrillation. Anticipate admission to the hospital in [place] for cardiology evaluation and serial enzymes. Progress Note #2: Time: 21:09 Progress Note My personal interpretation and review of his 1 view chest x-ray shows no acute infiltrate or effusion. 2150 Coagulation factors are not elevated. Comprehensive metabolic profile is not showing any acute significant abnormality. He has mild glucose elevated to 196. Troponin is negative at <0.3 and his Magnesium is normal at 2.1. ProBNP is not elevated. Despite the diltiazem 10 mg bolus and drip at 5 mg/hr he continues to be in A fib with RVR. D/w Dr. Cesar, glass ribbon machine operator hospitalist for [facility]. Reviewed patient presentation and history and treatment course here in the ED. With new onset atrial fibrillation with RVR and near syncope will admit as observation to ICU in [place]. 2156 d/w Dr. Mauro, glass ribbon machine operator button sewer, and reviewed patient presentation and new onset atrial fibrillation with RVR that possibly started 20 to 30 minutes prior to arrival when he had a near syncopal event. He has felt tired all day so it is unsure if that was the exact time or if it had been going on earlier. He denies any history of atrial fibrillation in the past. Advised patient did get Lovenox 1 mg/kg continue requested to continue that twice daily dosing. He plans to see him tomorrow morning Progress Note #3: Time: 22:15 Progress Note Heart rate continues to fluctuate from 110s to 140s atrial fibrillation with RVR. Will increase the diltiazem drip to 10 mg/h from 5 mg/h. Blood pressure remained stable at 111/57. Awaiting EMS transport to take patient to ICU in [facility]. Initial ECG Impression Date: Apr 09, 2023 Initial ECG Impression Time: 20:50 Initial ECG Rate: 140 Initial ECG Rhythm: A Fib/Flutter Initial ECG Comparisson: Changed (09/30/2021 tracing showed sinus rhythm) Comment Mild nausea interpretation and review of his electrocardiogram shows atrial fibrillation with rapid ventricular response and a heart rate of 140 bpm. He has no acute ST elevation. QT interval 300 ms with a QTc interval 382 ms. Compared to his prior tracing from September 30, 2021 he had a sinus rhythm at that time and is currently in atrial fibrillation. Diagnostic Imaging Diagonstic Imaging: Xray Plain Films/CT/US/NM/MRI: chest Comments [facility], [place] NAME: LLOYD GREWAL [facility] REC#: [id number] PT STATUS: REG ER : 1935 PHYSICIAN: TIARRA CORDOBA MD ADMIT DATE: 04/09/23/ER FS Signed Date of Exam:04/09/23 CHEST 1 VIEW AP/PA ONLY INDICATION: Cardiac palpitation. TECHNIQUE/COMPARISON: An AP view of the chest was obtained. Comparison is made to the study of 09/30/2021. FINDINGS: The heart size and pulmonary vascularity are within normal limits. The lungs are clear bilaterally. IMPRESSION: Unremarkable chest. Dictated by: Dictated on workstation # [id number] Dict: 04/09/232121 Trans: 04/09/232206 [id number] Interpreted by: ROBERT CORNELIUS MD Electronically signed by: ROBERT CORNELIUS MD 04/09/232206 Reviewed: Reviewed by Me Critical Care Note Critical Care Total Time (minutes) 45 minutes Progress I spent at least 45 minutes of critical care time with the patient. Time excludes separately billable procedures. Time was spent obtaining history and information from the patient and family, ordering tests and reviewing results, ordering interventions and reviewing response, discussion with consultants, documentation in the chart. Patient was at risk of hemodynamic collapse and compromised with this atrial fibrillation with rapid ventricular response. He is requiring Cardizem drip and admission. He required my immediate and direct intervention and management to help stabilize his condition and arrange for transfer to higher level of care. Departure Communication (Admissions) Time/Spoke to Admitting Phy: 21:51 D/w Dr. Cesar, glass ribbon machine operator hospitalist for [facility]. Reviewed patient presentation and history and treatment course here in the ED. With new onset atrial fibrillation with RVR and near syncope will admit as observation to ICU in [place]. 2156 d/w Dr. Mauro, glass ribbon machine operator button sewer, and reviewed patient presentation and new onset atrial fibrillation with RVR that possibly started 20 to 30 minutes prior to arrival when he had a near syncopal event. He has felt tired all day so it is unsure if that was the exact time or if it had been going on earlier. He denies any history of atrial fibrillation in the past. Advised patient did get Lovenox 1 mg/kg continue requested to continue that twice daily dosing. He plans to see him tomorrow morning Impression Primary Impression: Paroxysmal atrial fibrillation with rapid ventricular response Additional Impression: Near syncope Disposition: 30 STILL A PATIENT Condition: Critical Admissions Decision to Admit Reason: Admit from ER (General) Decision to Admit/Date: Apr 09, 2023 Time/Decision to Admit Time: 21:51 Departure-Patient Inst. Referrals: RUBIO SIERRA MD (PCP/Family) Primary Care Physician TIARRA CORDOBA MD Apr 09, 2023 21:03
[2023-04-09] MEDS ORDERED: dilTIAZem DRIP PRE-MIX 125 ML IV ONE (21:09)
[2023-04-09 21:16] LABS: BASOPHILS % (AUTO) 1 % (0-10); EOSINOPHILS # (AUTO) 0.2 10^3/uL (0.0-0.3); EOSINOPHILS % (AUTO) 3 % (0-10); HEMATOCRIT 40 % (40-54); HEMOGLOBIN 12.6 g/dL (13.3-17.7); LYMPHOCYTES # (AUTO) 1.7 10^3/uL (1.0-4.0); LYMPHOCYTES % (AUTO) 25 % (12-44); MEAN CORPUSCULAR HEMOGLOBIN 30 pg (25-34); MEAN CORPUSCULAR HGB CONC 32 g/dL (32-36); MEAN CORPUSCULAR VOLUME 95 fL (80-99); MEAN PLATELET VOLUME 9.9 fL (9.0-12.2); MONOCYTES # (AUTO) 0.7 10^3/uL (0.0-1.0); MONOCYTES % (AUTO) 11 % (0-12); NEUTROPHILS % (AUTO) 60 % (42-75); PLATELET COUNT 191 10^3/uL (130-400); WHITE BLOOD COUNT 6.6 10^3/uL (4.3-11.0)
--- NOTE | 2023-04-09 21:29 | Diagnostic Imaging Report ---
INDICATION: Cardiac palpitation. TECHNIQUE/COMPARISON: An AP view of the chest was obtained. Comparison is made to the study of 09/30/2021. FINDINGS: The heart size and pulmonary vascularity are within normal limits. The lungs are clear bilaterally. IMPRESSION: Unremarkable chest. Dictated by: Dictated on workstation # [id number]
[2023-04-09 21:36] LABS: POTASSIUM 3.9 MMOL/L (3.6-5.0)
[2023-04-09 21:38] LABS: INR 0.9 (0.8-1.4)
[2023-04-09 21:50] LABS: SODIUM 140 MMOL/L (135-145)
[2023-04-09 21:56] LABS: CARBON DIOXIDE 25 MMOL/L (21-32); CHLORIDE 103 MMOL/L (98-107)
[2023-04-09 21:57] LABS: BUN/CREATININE RATIO 16; CALCIUM 9.2 MG/DL (8.5-10.1); CREATININE SERUM 1.07 MG/DL (0.60-1.30); GFR ESTIMATED 68; GLUCOSE 196 MG/DL (70-105); MAGNESIUM 2.1 MG/DL (1.6-2.4)
[2023-04-09 21:58] LABS: ALANINE AMINOTRANSFERASE 19 U/L (0-55); ALKALINE PHOSPHATASE 91 U/L (40-136); BILIRUBIN,TOTAL 0.4 MG/DL (0.1-1.0)
[2023-04-09 21:59] LABS: LIPASE 32 U/L (8-78); TOTAL PROTEIN 7.4 GM/DL (6.4-8.2)
[2023-04-09 22:48] VITALS: BP 126/66
[2023-04-10] MEDS ORDERED: ONDANSETRON 4 MG ORAL DISSOLVE TABLET PO PRN
[2023-04-10] MEDS ORDERED: BISACODYL 10 MG SUPPOSITORY PR PRN
[2023-04-10] MEDS ORDERED: HYDROmorphone INJECTION 2 MG/ML VIAL IV PRN
[2023-04-10] MEDS ORDERED: LORazepam 0.5 MG TABLET PO PRN
[2023-04-10] MEDS ORDERED: diphenhydrAMINE INJ 50 MG/ML VIAL IVP PRN
[2023-04-10] MEDS ORDERED: diphenhydrAMINE 25 MG TABLET PO PRN
[2023-04-10] MEDS ORDERED: ANTACID SUSPENSION 30 ML UDC PO PRN
[2023-04-10] MEDS ORDERED: ONDANSETRON INJECTION 4 MG/2 ML (SDV) IV PRN
[2023-04-10] MEDS ORDERED: MELATONIN 3 MG TABLET PO PRN
[2023-04-10] MEDS ORDERED: oxyCODONE IMMEDIATE RELEASE 5 MG TABLET PO PRN
[2023-04-10] MEDS ORDERED: ACETAMINOPHEN 325 MG TABLET PO PRN
[2023-04-10] MEDS ORDERED: NS IV 500 ML 500 ML IV PRN
[2023-04-10] MEDS ORDERED: LACTULOSE SYRUP 10GM/15ML 30ML UDC PO PRN
--- NOTE | 2023-04-10 00:37 | Tele-ICU Progress Note ---
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 Started on lovenox and diltiazem gtt. On arrival to ICU 107/63, HR 71 and sinus. Patient is in no distress. A/P - cardiology to see in AM - lovenox - diltiazem gtt patient assessed via real time audiovisual communication system. CCT 5 min Focused Exam Height, Weight, BMI Height: '" Weight: lbs. oz. kg; 33.13 BMI Method: RABIA ALVAREZ MD Apr 10, 2023 00:37
[2023-04-10 04:28] LABS: BASOPHILS # (AUTO) 0.1 10^3/uL (0.0-0.1); BASOPHILS % (AUTO) 1 % (0-10); EOSINOPHILS # (AUTO) 0.2 10^3/uL (0.0-0.3); EOSINOPHILS % (AUTO) 3 % (0-10); HEMATOCRIT 36 % (40-54); HEMOGLOBIN 11.5 g/dL (13.3-17.7); LYMPHOCYTES # (AUTO) 1.5 10^3/uL (1.0-4.0); LYMPHOCYTES % (AUTO) 24 % (12-44); MEAN CORPUSCULAR HEMOGLOBIN 31 pg (25-34); MEAN CORPUSCULAR HGB CONC 32 g/dL (32-36); MEAN CORPUSCULAR VOLUME 95 fL (80-99); MEAN PLATELET VOLUME 9.9 fL (9.0-12.2); MONOCYTES # (AUTO) 0.9 10^3/uL (0.0-1.0); MONOCYTES % (AUTO) 15 % (0-12); NEUTROPHILS # (AUTO) 3.6 10^3/uL (1.8-7.8); NEUTROPHILS % (AUTO) 57 % (42-75); PLATELET COUNT 182 10^3/uL (130-400); WHITE BLOOD COUNT 6.2 10^3/uL (4.3-11.0)
[2023-04-10 04:43] LABS: ALBUMIN 3.2 GM/DL (3.2-4.5)
[2023-04-10 04:44] LABS: POTASSIUM 4.2 MMOL/L (3.6-5.0)
[2023-04-10 04:45] LABS: CALCIUM 8.8 MG/DL (8.5-10.1)
[2023-04-10 04:48] LABS: BILIRUBIN,TOTAL 0.4 MG/DL (0.1-1.0)
[2023-04-10 04:50] LABS: CREATININE SERUM 1.01 MG/DL (0.60-1.30)
[2023-04-10] MEDS: POTASSIUM CHLORIDE 20 MEQ TABLET PO SCH (05:29)
[2023-04-10] MEDS: POTASSIUM CL 10MEQ/50ML IVPB 50 ML IV SCH (05:29)
[2023-04-10] MEDS: MAGNESIUM 1 GM/100 ML IVPB 100 ML IV SCH (05:29)
--- NOTE | 2023-04-10 07:20 | Tele-ICU Progress Note ---
Progress Note video rounds completed 87 y/o male admitted with a fib/rvr and syncope. Placed on diltiazem drip and lovenox 90mg q12. Currently in NSR PE: lying comfortably in bed HR: 53 NSR with clear p-waves BP: 99/48 O2 sat: 96%. All labs unremarkable PLAN: awaiting cardiology evaulation. Currently no acute problem I am monitoring this patient remotely from another state and the basis for this evaluation was performed using nursing data and chart review along with video evaluation. I am not able to directly examine the patient. Time spent in review: 15 minutes Focused Exam Height, Weight, BMI Height: '" Weight: lbs. oz. kg; 33.13 BMI Method: Labs Laboratory Tests 04/09/23 20:55 04/10/23 04:18 Results Results/Procedures Labs Laboratory Tests 04/09/23 20:55 04/10/23 04:18 Patient resulted labs reviewed. Results Labs Labs Laboratory Tests 04/09/23 20:55: White Blood Count 6.6, Red Blood Count 4.18L, Hemoglobin 12.6L, Hematocrit 40, Mean Corpuscular Volume 95, Mean Corpuscular Hemoglobin 30, Mean Corpuscular Hemoglobin Concent 32, Red Cell Distribution Width 14.6H, Platelet Count 191, Mean Platelet Volume 9.9, Immature Granulocyte % (Auto) 0, Neutrophils (%) (Auto) 60, Lymphocytes (%) (Auto) 25, Monocytes (%) (Auto) 11, Eosinophils (%) (Auto) 3, Basophils (%) (Auto) 1, Neutrophils # (Auto) 4.0, Lymphocytes # (Auto) 1.7, Monocytes # (Auto) 0.7, Eosinophils # (Auto) 0.2, Basophils # (Auto) 0.0, Immature Granulocyte # (Auto) 0.0, Prothrombin Time 13.0, INR Comment 0.9, Activated Partial Thromboplast Time 36H, Sodium Level 140, Potassium Level 3.9, Chloride Level 103, Carbon Dioxide Level 25, Anion Gap 12, Blood Urea Nitrogen 17, Creatinine 1.07, Estimat Glomerular Filtration Rate 68, BUN/Creatinine Ratio 16, Glucose Level 196H, Calcium Level 9.2, Corrected Calcium 9.2, Magnesium Level 2.1, Total Bilirubin 0.4, Aspartate Amino Transf (AST/SGOT) 18, Alanine Aminotransferase (ALT/SGPT) 19, Alkaline Phosphatase 91, Troponin I < 0.30, Pro-B-Type Natriuretic Peptide 297.5, Total Protein 7.4, Albumin 4.0, Lipase 32 04/10/23 04:18: White Blood Count 6.2, Red Blood Count 3.77L, Hemoglobin 11.5L, Hematocrit 36L, Mean Corpuscular Volume 95, Mean Corpuscular Hemoglobin 31, Mean Corpuscular Hemoglobin Concent 32, Red Cell Distribution Width 14.5, Platelet Count 182, Mean Platelet Volume 9.9, Immature Granulocyte % (Auto) 0, Neutrophils (%) (Auto) 57, Lymphocytes (%) (Auto) 24, Monocytes (%) (Auto) 15H, Eosinophils (%) (Auto) 3, Basophils (%) (Auto) 1, Neutrophils # (Auto) 3.6, Lymphocytes # (Auto) 1.5, Monocytes # (Auto) 0.9, Eosinophils # (Auto) 0.2, Basophils # (Auto) 0.1, Immature Granulocyte # (Auto) 0.0, Sodium Level 143, Potassium Level 4.2, Chloride Level 110H, Carbon Dioxide Level 25, Anion Gap 8, Blood Urea Nitrogen 17, Creatinine 1.01, Estimat Glomerular Filtration Rate 73, BUN/Creatinine Ratio 17, Glucose Level 111H, Calcium Level 8.8, Corrected Calcium 9.4, Magnesium Level 2.0, Total Bilirubin 0.4, Aspartate Amino Transf (AST/SGOT) 15, Alanine Aminotransferase (ALT/SGPT) 13, Alkaline Phosphatase 63, Total Protein 6.0L, Al bumin 3.2, Phosphorus Level 4.0 RAINA FERGUSON MD Apr 10, 2023 07:20
[2023-04-10] MEDS: DOCUSATE SODIUM 100 MG CAPSULE PO SCH ×2 (09:09→19:52)
--- NOTE | 2023-04-10 10:01 | History & Physical-Hospitalist ---
MICHELLE SANCHEZ MD,RESIDENT 04/10/23 1001: History of Present Illness HPI/Chief Complaint CC: Near syncope, palpitations HPI: Pt is an 87-year-old male presenting with complaints of near syncope 20 to 30 minutes prior to arrival to the ED 04/09, as well as palpitations. He felt like his heart was racing and beating irregular in his chest. He felt very fatigued and rundown. He states that he has long COVID and has gotten easily fatigued ever since. He had been doing more physical labor during the last week, trying to prepare for an upcoming move. He denied having chest pain, nausea, vomiting, abdominal pain, shortness of breath. He denies having a history of atrial fibrillation, heart failure. He did report that a few years ago he was placed on a loop recorder for several days, however does not recall why he was placed on it but states they did not find anything. Will admit for observation. Source: patient Date Seen 04/10/23 Time Seen by a Provider: 09:30 Attending Physician Raymond Rico MD PCP Admitting Physician: Gena Cesar DO Attending Physician: Gena Cesar DO Referring Physician Date of Admission Apr 09, 2023 at 23:30 Home Medications & Allergies Home Medications Reviewed patient Home Medication Reconciliation performed by pharmacy medication reconciliations plant maintenance technician and/or nursing. Patients Allergies have been reviewed. Allergies Allergies Coded Allergies albuterol (Verified Allergy, Unknown, Tachycardia , 01/19/22) aspartame (Verified Allergy, Unknown, Causes extreme brain fog per pt, 01/19/22) morphine (Verified Allergy, Unknown, 01/19/22) sucralose (Verified Allergy, Unknown, Splenda- heart racing, 01/19/22) Past Znddsjf-Gbjybk-Tzwwbr Hx Patient Social History Tobacco Use?: No Use of E-Cig and/or Vaping dev: No Substance use?: No Alcohol Use?: No Pt feels they are or have been: No Seasonal Allergies Seasonal Allergies: No Current Status Advance Directives: No Communicates: Verbally Primary Language: Mongolian Preferred Spoken Language: Mongolian Is interpretation needed?: No Sensory deficits: Vision impairment Implanted or Applied Medical D: Orthopedic hardware Past Medical History Surgeries: Abdominal, Appendectomy, Orthopedic, Tonsillectomy Hypertension Benign Prostatic Hyperpl Blood Disorders: No Review of Systems Constitutional: no symptoms reported EENTM: no symptoms reported Respiratory: no symptoms reported Cardiovascular: no symptoms reported Gastrointestinal: no symptoms reported Genitourinary: no symptoms reported Musculoskeletal: no symptoms reported Skin: no symptoms reported Psychiatric/Neurological: No Symptoms Reported Physical Exam Physical Exam Vital Signs Vital Signs - First Documented 04/09/23 04/10/23 20:48 02:35 Temp 37.1 Pulse 141 Resp 24 B/P (MAP) 166/76 (106) Pulse Ox 96 O2 Delivery Room Air FiO2 21 Capillary Refill : Less Than 3 Seconds Height, Weight, BMI Height: '" Weight: lbs. oz. kg; 33.13 BMI Method: General Appearance: No Apparent Distress HEENT: Normal ENT Inspection Neck: Full Range of Motion Respiratory: Chest Non Tender, Lungs Clear, Normal Breath Sounds, No Accessory Muscle Use, No Respiratory Distress Cardiovascular: Regular Rate, Rhythm, No Murmur, Normal Peripheral Pulses Gastrointestinal: Non Tender, Soft Extremity: Non Tender, Pedal Edema (+1) Neurologic/Psychiatric: Alert, Oriented x3, Normal Mood/Affect Skin: Warm/Dry Results Results/Procedures Labs Laboratory Tests 04/09/23 20:55 04/10/23 04:18 Patient resulted labs reviewed. Assessment/Plan Admission Diagnosis AFib with RVR Admission Status: Observation Reason for Inpatient Admission: AFib with RVR Diagnosis/Problems Diagnosis/Problems (1) Atrial fibrillation with RVR Assessment & Plan: New onset Unclear etiology SR on 04/10 PLAN: Consult cardiology Diltiazem gtt - stopped 04/09 evening EKG Echo CTM on telemetry for 24 hrs per cardiology (2) HTN (hypertension) Assessment & Plan: PLAN: Currently hypotensive, will hold BP medications while inpatient. Clinical Quality Measures AMI/AHF: ASA po Prior to arrival: GENA Garcia DO 04/11/23 0608: History of Present Illness HPI/Chief Complaint Chief complaint: New onset A-fib with RVR HPI: This is an 87-year-old male who has a history of a loop recorder placed 3 years ago by Who presents to the ER with palpitations found to have A- fib with RVR. Patient was placed on anticoagulation. Cardiology consulted. Patient converted to normal sinus rhythm. Source: patient Exam Limitations: no limitations Past Pmeqgwv-Rflszy-Ulfkfn Hx Patient Social History Marrital Status: single Employed/Student: retired Smoking Status: Former Smoker Past Medical History High Cholesterol, Hypertension Review of Systems Constitutional: see HPI, malaise, weakness Cardiovascular: palpitations Physical Exam Physical Exam General Appearance: No Apparent Distress, Chronically ill Eyes: Right Eye Normal Inspection, Right Eye PERRL HEENT: PERRL/EOMI, Normal ENT Inspection, Pharynx Normal, Moist Mucous Membranes Neck: Full Range of Motion, Normal Inspection, Non Tender Respiratory: Chest Non Tender, Lungs Clear, Normal Breath Sounds, No Accessory Muscle Use, No Respiratory Distress Cardiovascular: Regular Rate, Rhythm, No Edema, No Gallop, No JVD, No Murmur, Normal Peripheral Pulses Gastrointestinal: Normal Bowel Sounds, No Organomegaly, No Pulsatile Mass, Non Tender, Soft Back: Normal Inspection, No CVA Tenderness, No Vertebral Tenderness Extremity: Normal Capillary Refill, Normal Inspection, Normal Range of Motion, Non Tender, No Calf Tenderness, No Pedal Edema Neurologic/Psychiatric: Alert, Oriented x3, No Motor/Sensory Deficits, Normal Mood/Affect Skin: Normal Color, Warm/Dry Lymphatic: No Adenopathy Assessment/Plan Admission Diagnosis Assessment: New onset A-fib with RVR Hypertension Loop recorder from 3 years ago Advanced age Long COVID Plan: ICU Cardiology consult Echo I personally performed the myrick portions of the visit, discussed case with resident and concur with resident documentation of history, physical exam, assessment and treatment plan unless otherwise noted. Admission Status: Inpatient Order (span 2 midnights) Reason for Inpatient Admission: A-fib with RVR MICHELLE SANCHEZ MD,RESIDENT Apr 10, 2023 10:01 GENA CESAR DO Apr 11, 2023 06:08
--- NOTE | 2023-04-10 19:22 | Consultation-Cardiology ---
HPI-Cardiology Cardiology Consultation Date of Consultation 04/10/23 Date of Admission Time Seen by Provider: 09:30 HPI Patient is an 87-year-old gentleman with a history of hypertension, hyperlipidemia, rectal cancer, status post appendectomy who presented for evaluation of presyncope palpitations and fatigue. Patient states that he was at home with his family. They were sitting on the table. He felt acute onset palpitations presyncope and fatigue. In that setting he became concerned and came to the emergency room for evaluation. In the emergency room he was found to be in atrial fibrillation with rapid ventricular response to 140 initial EKG demonstrates atrial fibrillation with rapid ventricular response and ST depressions likely rate related. He was started on a diltiazem drip and converted to normal sinus rhythm at approximately 11:30 PM upon transfer to the ICU he states that that was his first episode of anything similar to this. He has never had atrial fibrillation or atrial flutter in the past. Otherwise, he denies any chest discomfort, shortness of breath, syncope, PND, orthopnea, lower extremity edema Home Medications & Allergies Allergies: Coded Allergies: albuterol (Verified Allergy, Unknown, Tachycardia , 01/19/22) aspartame (Verified Allergy, Unknown, Causes extreme brain fog per pt, 01/19/22) morphine (Verified Allergy, Unknown, 01/19/22) sucralose (Verified Allergy, Unknown, Splenda- heart racing, 01/19/22) [facility] Hx Patient Social History Recent Hopitalizations: No Alcohol Use?: No Family Medical History Family Medical Hx No CAD or CVA in his family Review of Systems-General Review of Systems Constitutional: no symptoms reported EENTM: no symptoms reported Respiratory: no symptoms reported Cardiovascular: no symptoms reported Gastrointestinal: no symptoms reported Genitourinary: no symptoms reported Musculoskeletal: no symptoms reported Skin: no symptoms reported Psychiatric/Neurological: No Symptoms Reported All systems were reviewed and are negative except for what is been described in HPI. All Other Systems Reviewed Negative Unless Noted: Yes ECG Impression ECG Comment EKG #1 demonstrated atrial fibrillation with rapid ventricular response at 140 bpm, ST depressions diffusely, rate related EKG #2 demonstrates normal sinus rhythm with first-degree AV block early R wave progression across precordium with resolution of ST segment changes Physical Exam Physical Exam Vital Signs Vital Signs - First Documented 10/20/23 10/21/23 10/21/23 20:48 02:35 18:50 Temp 37.1 Pulse 141 Resp 24 B/P (MAP) 166/76 (106) Pulse Ox 96 O2 Delivery Room Air O2 Flow Rate 0.00 FiO2 21 Capillary Refill : Less Than 3 Seconds Height, Weight, BMI Height: '" Weight: lbs. oz. kg; 33.13 BMI Method: General Appearance: No Apparent Distress HEENT: Normal ENT Inspection Neck: Full Range of Motion Respiratory: Chest Non Tender, Lungs Clear, Normal Breath Sounds, No Accessory Muscle Use, No Respiratory Distress Cardiovascular: Regular Rate, Rhythm, No Murmur, Normal Peripheral Pulses Gastrointestinal: Non Tender, Soft Rectal: Deferred Extremity: Non Tender, Pedal Edema (+1) Neurologic/Psychiatric: Alert, Oriented x3, Normal Mood/Affect Skin: Warm/Dry Comments Gen: NAD, resting comfortably; A+oX3 Neck: No bruits, no JVD Lungs: Normal breath sounds, good air movement. no wheezing rales or rhonchi. CV: nl s1/s2; no murmurs gallops or rubs. Regular rate and rhythm Abd: Soft nontender nondistended, no hepatosplenomegaly, positive bowel sounds.; Ext: 2+ radial and DP pulses; no c-c, wwp, no edema A/P-Cardiology Assessment/Plan 87-year-old gentleman with a history of hypertension, hyperlipidemia, rectal cancer, status post appendectomy who presented for evaluation of presyncope palpitations and fatigue. ##Atrial fibrillation: Lone A-fib as per the patient. No episodes in the past. Currently on Lovenox 90 mix per cake twice daily. Recommend continued telemetry monitoring for another 24 hours. If no further atrial fibrillation or atrial flutter, start aspirin 81 and hold on full anticoagulation. If further episodes of atrial fibrillation are noted on telemetry, recommend starting anticoagulation at that time. He would qualify for Eliquis 5 mg p.o. twice daily. he has a good warning system for when he is in atrial fibrillation. Start aspirin 81 when Lovenox is discontinued. Trans thoracic echocardiogram performed and demonstrates normal LV RV size and function. Recommend initiation of Toprol XL 75 mg p.o. twice daily which is a 50% increase above his home dosing. Clinical Quality Measures AMI/AHF: ASA po Prior to arrival: LORY Gagnon MD Apr 10, 2023 7:22 pm
[2023-04-10] MEDS: dilTIAZem DRIP PRE-MIX 125 ML IV SCH ×2 (23:55)
[2023-04-11 04:21] LABS: BASOPHILS # (AUTO) 0.1 10^3/uL (0.0-0.1); BASOPHILS % (AUTO) 1 % (0-10); EOSINOPHILS # (AUTO) 0.2 10^3/uL (0.0-0.3); EOSINOPHILS % (AUTO) 4 % (0-10); HEMATOCRIT 36 % (40-54); HEMOGLOBIN 11.7 g/dL (13.3-17.7); LYMPHOCYTES # (AUTO) 1.1 10^3/uL (1.0-4.0); LYMPHOCYTES % (AUTO) 19 % (12-44); MEAN CORPUSCULAR HEMOGLOBIN 31 pg (25-34); MEAN CORPUSCULAR HGB CONC 33 g/dL (32-36); MEAN CORPUSCULAR VOLUME 94 fL (80-99); MEAN PLATELET VOLUME 9.7 fL (9.0-12.2); MONOCYTES # (AUTO) 0.8 10^3/uL (0.0-1.0); MONOCYTES % (AUTO) 13 % (0-12); NEUTROPHILS # (AUTO) 3.9 10^3/uL (1.8-7.8); NEUTROPHILS % (AUTO) 64 % (42-75); PLATELET COUNT 180 10^3/uL (130-400); WHITE BLOOD COUNT 6.1 10^3/uL (4.3-11.0)
[2023-04-11 04:31] LABS: POTASSIUM 4.2 MMOL/L (3.6-5.0)
[2023-04-11 04:32] LABS: ALBUMIN 3.3 GM/DL (3.2-4.5)
[2023-04-11 04:33] LABS: CALCIUM 8.9 MG/DL (8.5-10.1)
[2023-04-11 04:34] LABS: TOTAL PROTEIN 6.1 GM/DL (6.4-8.2)
[2023-04-11 04:36] LABS: BILIRUBIN,TOTAL 0.6 MG/DL (0.1-1.0)
[2023-04-11 04:37] LABS: PHOSPHORUS 2.9 MG/DL (2.3-4.7)
[2023-04-11 04:38] LABS: CREATININE SERUM 0.87 MG/DL (0.60-1.30)
[2023-04-11] MEDS: POTASSIUM CL 10MEQ/50ML IVPB 50 ML IV SCH (05:56)
[2023-04-11] MEDS: POTASSIUM CHLORIDE 20 MEQ TABLET PO SCH (05:56)
[2023-04-11] MEDS: MAGNESIUM 1 GM/100 ML IVPB 100 ML IV SCH (05:56)
--- NOTE | 2023-04-11 06:20 | Progress Note - Hospitalist ---
Subjective HPI/CC On Admission Date Seen by Provider: Apr 11, 2023 Time Seen by Provider: 09:00 Chief complaint: New onset A-fib with RVR HPI: This is an 87-year-old male who has a history of a loop recorder placed 3 years ago by Who presents to the ER with palpitations found to have A- fib with RVR. Patient was placed on anticoagulation. Cardiology consulted. Patient converted to normal sinus rhythm. Objective Exam Vital Signs Vital Signs Date Time Temp Pulse Resp B/P (MAP) Pulse Ox O2 Delivery O2 Flow Rate FiO2 04/11/23 08:04 98 Room Air 0.00 04/11/23 08:00 36.7 71 18 145/74 (97) 04/10/23 02:35 21 Capillary Refill : Less Than 3 Seconds Results/Procedures Lab Laboratory Tests 04/11/23 04:12 Patient resulted labs reviewed. Clinical Quality Measures AMI/AHF: ASA po Prior to arrival: FELIX Garcia DO Apr 11, 2023 06:20
--- NOTE | 2023-04-11 06:39 | Cardiology Progress Note ---
Subjective Date Seen by Provider: Apr 11, 2023 Time Seen by Provider: 05:45 Subjective/Events-last exam No acute issues overnight. Maintaining normal sinus rhythm throughout the night stone telemetry review. Objective-Cardiology Exam Last Set of Vital Signs Vital Signs 04/10/23 04/10/23 04/10/23 04/11/23 02:35 16:25 18:50 04:00 Temp 36.1 Pulse 56 Resp 17 B/P (MAP) 107/56 (73) Pulse Ox 96 O2 Delivery Room Air O2 Flow Rate 0.00 FiO2 21 I&O Intake and Output 04/11/23 00:00 Intake Total 1077 ml Output Total 1400 ml Balance -323 ml Intake Oral 1052 ml IV Total 25 ml Output Urine Total 1400 ml # Voids 1 # Bowel Movements 1 Other physical findings Gen: NAD, resting comfortably; nonverbal; intermittent moaning Neck: No bruits, no JVD Lungs: Normal breath sounds, good air movement. no wheezing rales or rhonchi.\ CV: nl s1/s2; no gallops or rubs.. 2 out of 6 systolic murmur heard best along the left sternal border. Abd: Soft nontender nondistended, no hepatosplenomegaly, positive bowel sounds.;Ext: 2+ radial and DP pulses; no c-c, wwp, 1+ BLE edema Results Lab Laboratory Tests 04/11/23 04:12 A/P-Cardiology Assessment/Plan 87-year-old gentleman with a history of hypertension, hyperlipidemia, rectal cancer, status post appendectomy who presented for evaluation of presyncope palpitations and fatigue. ##Atrial fibrillation with RVR- Lone A-fib: Per patient, no previous episodes of similar. Suspect this is lone A-fib. No further documented A-fib on the monitor. Heart rates currently in the 50s to 60s. Continue Toprol-XL 75 mg p.o. twice daily. Discontinue Lovenox 80 mg SQ twice daily and transition to aspirin 81 mg p.o. daily for now if further episodes of atrial fibrillation, transition to Eliquis 5 mg p.o. twice daily. Continue telemetry for now LORY AHN MD Apr 11, 2023 6:39 am
[2023-04-11] MEDS: DOCUSATE SODIUM 100 MG CAPSULE PO SCH (08:00)
[2023-04-11] MEDS ORDERED: ENOXAPARIN 100 MG/1 ML SYRINGE SC SCH (09:00)
[2023-04-11] MEDS ORDERED: ASPIRIN enteric coated 81MG TABLET PO SCH (09:00)
[2023-04-11] MEDS ORDERED: MTP25TSR PO (09:53)
[2023-04-11] MEDS ORDERED: APIX5TAB PO (09:53)
--- NOTE | 2023-04-11 09:53 | Discharge Summary ---
Diagnosis/Chief Complaint Date of Admission Apr 09, 2023 at 23:30 Date of Discharge Discharge Date: Apr 11, 2023 Discharge Diagnosis Atrial fibrillation new onset with RVR Long COVID with residual weakness Hypertension Hyperlipidemia Plan: Discharge home Discharge Summary Discharge Physical Examination Allergies: Coded Allergies: albuterol (Verified Allergy, Unknown, Tachycardia , 01/19/22) aspartame (Verified Allergy, Unknown, Causes extreme brain fog per pt, 01/19/22) morphine (Verified Allergy, Unknown, 01/19/22) sucralose (Verified Allergy, Unknown, Splenda- heart racing, 01/19/22) Vitals & I&Os Vital Signs Date Time Temp Pulse Resp B/P (MAP) Pulse Ox O2 Delivery O2 Flow Rate FiO2 04/11/23 12:17 04/11/23 08:04 98 Room Air 0.00 04/11/23 08:00 36.7 71 18 04/10/23 02:35 21 General Appearance: Alert, Oriented X3, Cooperative Respiratory: Clear to Auscultation Cardiovascular: Regular Rate Psych/Mental Status: Mental Status NL Hospital Course Was the Problem List Reviewed?: Yes Patient was admitted for new onset A-fib with RVR placed on Cardizem drip and he converted to normal sinus rhythm. Oral anticoagulation indicated so he was placed on Eliquis sent to [facility] in [place] and patient was deemed stable for discharge. Labs (last 24 hrs) Laboratory Tests 04/09/23 20:55: White Blood Count 6.6, Red Blood Count 4.18L, Hemoglobin 12.6L, Hematocrit 40, Mean Corpuscular Volume 95, Mean Corpuscular Hemoglobin 30, Mean Corpuscular Hemoglobin Concent 32, Red Cell Distribution Width 14.6H, Platelet Count 191, Mean Platelet Volume 9.9, Immature Granulocyte % (Auto) 0, Neutrophils (%) (Auto) 60, Lymphocytes (%) (Auto) 25, Monocytes (%) (Auto) 11, Eosinophils (%) (Auto) 3, Basophils (%) (Auto) 1, Neutrophils # (Auto) 4.0, Lymphocytes # (Auto) 1.7, Monocytes # (Auto) 0.7, Eosinophils # (Auto) 0.2, Basophils # (Auto) 0.0, Immature Granulocyte # (Auto) 0.0, Prothrombin Time 13.0, INR Comment 0.9, Activated Partial Thromboplast Time 36H, Sodium Level 140, Potassium Level 3.9, Chloride Level 103, Carbon Dioxide Level 25, Anion Gap 12, Blood Urea Nitrogen 17, Creatinine 1.07, Estimat Glomerular Filtration Rate 68, BUN/Creatinine Ratio 16, Glucose Level 196H, Calcium Level 9.2, Corrected Calcium 9.2, Magnesium Level 2.1, Total Bilirubin 0.4, Aspartate Amino Transf (AST/SGOT) 18, Alanine Aminotransferase (ALT/SGPT) 19, Alkaline Phosphatase 91, Troponin I < 0.30, Pro-B-Type Natriuretic Peptide 297.5, Total Protein 7.4, Albumin 4.0, Lipase 32 04/10/23 04:18: White Blood Count 6.2, Red Blood Count 3.77L, Hemoglobin 11.5L, Hematocrit 36L, Mean Corpuscular Volume 95, Mean Corpuscular Hemoglobin 31, Mean Corpuscular Hemoglobin Concent 32, Red Cell Distribution Width 14.5, Platelet Count 182, Mean Platelet Volume 9.9, Immature Granulocyte % (Auto) 0, Neutrophils (%) (Auto) 57, Lymphocytes (%) (Auto) 24, Monocytes (%) (Auto) 15H, Eosinophils (%) (Auto) 3, Basophils (%) (Auto) 1, Neutrophils # (Auto) 3.6, Lymphocytes # (Auto) 1.5, Monocytes # (Auto) 0.9, Eosinophils # (Auto) 0.2, Basophils # (Auto) 0.1, Immature Granulocyte # (Auto) 0.0, Sodium Level 143, Potassium Level 4.2, C hloride Level 110H, Carbon Dioxide Level 25, Anion Gap 8, Blood Urea Nitrogen 17, Creatinine 1.01, Estimat Glomerular Filtration Rate 73, BUN/Creatinine Ratio 17, Glucose Level 111H, Calcium Level 8.8, Corrected Calcium 9.4, Magnesium Level 2.0, Total Bilirubin 0.4, Aspartate Amino Transf (AST/SGOT) 15, Alanine Aminotransferase (ALT/SGPT) 13, Alkaline Phosphatase 63, Total Protein 6.0L, Albumin 3.2, Phosphorus Level 4.0 04/11/23 04:12: White Blood Count 6.1, Red Blood Count 3.81L, Hemoglobin 11.7L, Hematocrit 36L, Mean Corpuscular Volume 94, Mean Corpuscular Hemoglobin 31, Mean Corpuscular Hemoglobin Concent 33, Red Cell Distribution Width 14.6H, Platelet Count 180, Mean Platelet Volume 9.7, Immature Granulocyte % (Auto) 0, Neutrophils (%) (Auto) 64, Lymphocytes (%) (Auto) 19, Monocytes (%) (Auto) 13H, Eosinophils (%) (Auto) 4, Basophils (%) (Auto) 1, Neutrophils # (Auto) 3.9, Lymphocytes # (Auto) 1.1, Monocytes # (Auto) 0.8, Eosinophils # (Auto) 0.2, Basophils # (Auto) 0.1, Immature Granulocyte # (Auto) 0.0, Sodium Level 142, Potassium Level 4.2, Chloride Level 109H, Carbon Dioxide Level 25, Anion Gap 8, Blood Urea Nitrogen 17, Creatinine 0.87, Estimat Glomerular Filtration Rate 85, BUN/Creatinine Ratio 20, Glucose Level 108H, Calcium Level 8.9, Corrected Calcium 9.5, Magnesium Level 2.0, Total Bilirubin 0.6, Aspartate Amino Transf (AST/SGOT) 13, Alanine Aminotransferase (ALT/SGPT) 12, Alkaline Phosphatase 54, Total Protein 6.1L, Albumin 3.3, Phosphorus Level 2.9 Microbiology 04/10/23 MRSA Screen - Final, Complete MRSA not isolated Pending Labs Microbiology Date/Time Source Procedure Growth Status 04/10/23 00:22 Nasal MRSA Screen - Final MRSA not isolated Complete Laboratory Tests 04/09/23 20:55: White Blood Count 6.6, Red Blood Count 4.18, Hemoglobin 12.6, Hematocrit 40, Mean Corpuscular Volume 95, Mean Corpuscular Hemoglobin 30, Mean Corpuscular Hemoglobin Concent 32, Red Cell Distribution Width 14.6, Platelet Count 191, Mean Platelet Volume 9.9, Immature Granulocyte % (Auto) 0, Neutrophils (%) (Auto) 60, Lymphocytes (%) (Auto) 25, Monocytes (%) (Auto) 11, Eosinophils (%) (Auto) 3, Basophils (%) (Auto) 1, Neutrophils # (Auto) 4.0, Lymphocytes # (Auto) 1.7, Monocytes # (Auto) 0.7, Eosinophils # (Auto) 0.2, Basophils # (Auto) 0.0, Immature Granulocyte # (Auto) 0.0, Prothrombin Time 13.0, INR Comment 0.9, Activated Partial Thromboplast Time 36, Sodium Level 140, Potassium Level 3.9, Chloride Level 103, Carbon Dioxide Level 25, Anion Gap 12, Blood Urea Nitrogen 17, Creatinine 1.07, Estimat Glomerular Filtration Rate 68, BUN/Creatinine Ratio 16, Glucose Level 196, Calcium Level 9.2, Corrected Calcium 9.2, Magnesium Level 2.1, Total Bilirubin 0.4, Aspartate Amino Transf (AST/SGOT) 18, Alanine Aminotransferase (ALT/SGPT) 19, Alkaline Phosphatase 91, Troponin I < 0.30, Pro-B-Type Natriuretic Peptide 297.5, Total Protein 7.4, Albumin 4.0, Lipase 32 04/10/23 04:18: White Blood Count 6.2, Red Blood Count 3.77, Hemoglobin 11.5, Hematocrit 36, Mean Corpuscular Volume 95, Mean Corpuscular Hemoglobin 31, Mean Corpuscular Hemoglobin Concent 32, Red Cell Distribution Width 14.5, Platelet Count 182, Mean Platelet Volume 9.9, Immature Granulocyte % (Auto) 0, Neutrophils (%) (Auto) 57, Lymphocytes (%) (Auto) 24, Monocytes (%) (Auto) 15, Eosinophils (%) (Auto) 3, Basophils (%) (Auto) 1, Neutrophils # (Auto) 3.6, Lymphocytes # (Auto) 1.5, Monocytes # (Auto) 0.9, Eosinophils # (Auto) 0.2, Basophils # (Auto) 0.1, Immature Granulocyte # (Auto) 0.0, Sodium Level 143, Potassium Level 4.2, Chloride Level 110, Carbon Dioxide Level 25, Anion Gap 8, Blood Urea Nitrogen 17, Creatinine 1.01, Estimat Glomerular Filtration Rate 73, BUN/Creatinine Ratio 17, Glucose Level 111, Calcium Level 8.8, Corrected Calcium 9.4, Magnesium Level 2.0, Total Bilirubin 0.4, Aspartate Amino Transf (AST/SGOT) 15, Alanine Aminotransferase (ALT/SGPT) 13, Alkaline Phosphatase 63, Total Protein 6.0, Albumin 3.2, Phosphorus Level 4.0 04/11/23 04:12: White Blood Count 6.1, Red Blood Count 3.81, Hemoglobin 11.7, Hematocrit 36, Mean Corpuscular Volume 94, Mean Corpuscular Hemoglobin 31, Mean Corpuscular Hemoglobin Concent 33, Red Cell Distribution Width 14.6, Platelet Count 180, Mean Platelet Volume 9.7, Immature Granulocyte % (Auto) 0, Neutrophils (%) (Auto) 64, Lymphocytes (%) (Auto) 19, Monocytes (%) (Auto) 13, Eosinophils (%) (Auto) 4, Basophils (%) (Auto) 1, Neutrophils # (Auto) 3.9, Lymphocytes # (Auto) 1.1, Monocytes # (Auto) 0.8, Eosinophils # (Auto) 0.2, Basophils # (Auto) 0.1, Immature Granulocyte # (Auto) 0.0, Sodium Level 142, Potassium Level 4.2, Chloride Level 109, Carbon Dioxide Level 25, Anion Gap 8, Blood Urea Nitrogen 17, Creatinine 0.87, Estimat Glomerular Filtration Rate 85, BUN/Creatinine Ratio 20, Glucose Level 108, Calcium Level 8.9, Corrected Calcium 9.5, Magnesium Level 2.0, Total Bilirubin 0.6, Aspartate Amino Transf (AST/SGOT) 13, Alanine Aminotransferase (ALT/SGPT) 12, Alkaline Phosphatase 54, Total Protein 6.1, Albumin 3.3, Phosphorus Level 2.9 Discharge Home Medications: Active Scripts Active Eliquis (Apixaban) 5 Mg Tablet 5 Mg PO BID Metoprolol Succinate 25 Mg Tab.er.24h 75 Mg PO BID Flomax (Tamsulosin HCl) 0.4 Mg Cap 0.4 Mg PO DAILY Imodium A-D (Loperamide HCl) 2 Mg Capsule 4 Mg PO QID TAKES 2 (2MG) TABS Reported Rosuvastatin Calcium 20 Mg Tablet 20 Mg PO DAILY Potassium (Potassium Citrate) 99 Mg Capsule 99 Mg PO HS Ferrous Gluconate 324 Mg (37.5 Mg Iron) Tablet 162 Mg PO DAILY TAKES OF A 324MG TAB Coq-10 (Ubidecarenone) 100 Mg Capsule 100 Mg PO DAILY Aspirin EC (Aspirin) 81 Mg Tablet.dr 81 Mg PO DAILY TAKE WITH FOOD Vitamin C (Ascorbate Calcium) 500 Mg Tablet 500 Mg PO DAILY Instructions to patient/family Please see electronic discharge instructions given to patient. Clinical Quality Measures AMI/AHF: ASA po Prior to arrival: FELIX Garcia DO Apr 11, 2023 09:53
--- NOTE | 2023-04-11 09:58 | Tele-ICU Progress Note ---
Subjective Date Seen by a Provider: Apr 11, 2023 Time Seen by a Provider: 09:58 Subjective/Events-last exam (Tele-ICU Physician , Progress Note ) Service provided via interactive audio and video telecommunications E-[facility] system to a patient admitted to ICU bed in [facility]. Patient is seen today due to persistent need of ICU care Available chart/ vitals / labs / Images reviewed Video assessment done using teleICU camera, rest of exam as per RN He is a 87-year-old male with past medical history of fall rectal cancer s/p resection with ileostomy placement presented with palpitations and irregular heartbeat and found to have atrial fibrillation with rapid ventricular rate. He is admitted to ICU and cardiology consultation is requested. Initially he was treated with IV diltiazem drip and his heart rate and rhythm converted to normal monitor sinus rhythm. Currently he is on metoprolol 75 mg p.o. twice daily with a normal sinus rhythm. He is in no acute distress. Impression 1. Atrial fibrillation with rapid ventricular rate now converted to normal sinus rhythm 2. History of long COVID 3. History of rectal cancer status postresection with placement of ileostomy. Recommendations 1. Continue oral metoprolol per cardiology 2. Lovenox subcutaneously for DVT prophylaxis and stroke prophylaxis. Coordination of care with primary care physician and bedside consultants. I am remotely monitoring this patient from Tele icu station in [place]. I am unable to do the bedside exam, and history/physical and pertinent information is taken from other notes in the computer and bedside staff. Certain portions of this document may have been dictated utilizing voice recognition technology such as [employer]. Inherent to this technology, typographical and grammatical errors may exist. As much as I am diligent to identify and correct to these mistakes, some errors may remain in the document. Critical care time devoted to this patient today is approximately is--15 minutes Sepsis Event Evaluation Height, Weight, BMI Height: '" Weight: lbs. oz. kg; 33.13 BMI Method: Exam Exam Patient acknowledged, consented, and participated in this virtual visit which was conducted using real time audio/video Vital Signs Date Time Temp Pulse Resp B/P (MAP) Pulse Ox O2 Delivery O2 Flow Rate FiO2 04/11/23 08:04 98 Room Air 0.00 04/11/23 08:00 36.7 71 18 145/74 (97) 95 Room Air 04/11/23 07:00 51 04/11/23 04:00 56 17 107/56 (73) 96 Room Air 04/11/23 01:12 54 04/11/23 00:00 69 28 134/72 (92) 98 Room Air 04/10/23 23:48 97 Room Air 04/10/23 19:55 98 Room Air 04/10/23 19:30 67 21 140/67 (91) 99 Room Air 04/10/23 19:00 68 04/10/23 18:50 96 Room Air 0.00 04/10/23 16:25 36.1 61 22 135/69 (99) 98 Room Air 04/10/23 16:00 61 14 98 Room Air 04/10/23 12:19 61 04/10/23 12:00 59 11 97 Room Air 04/10/23 10:00 61 25 139/68 (90) 98 Room Air I & O 04/11/23 07:00 Intake Total 1077 ml Output Total 1650 ml Balance -573 ml Height & Weight Height: '" Weight: lbs. oz. kg; 33.13 BMI Method: General Appearance: No Apparent Distress, Chronically ill HEENT: PERRL/EOMI, Normal ENT Inspection, Pharynx Normal, Moist Mucous Membranes Neck: Full Range of Motion, Normal Inspection, Non Tender Respiratory: Chest Non Tender, Lungs Clear, Normal Breath Sounds, No Accessory Muscle Use, No Respiratory Distress Cardiovascular: Regular Rate, Rhythm, No Edema, No Gallop, No JVD, No Murmur, Normal Peripheral Pulses Capillary Refill: Less Than 3 Seconds Extremity: Normal Capillary Refill, Normal Inspection, Normal Range of Motion, Non Tender, No Calf Tenderness, No Pedal Edema Neurologic/Psychiatric: Alert, Oriented x3, No Motor/Sensory Deficits, Normal Mood/Affect Skin: Normal Color, Warm/Dry Lymphatic: No Adenopathy Results Lab Laboratory Tests 04/09/23 20:55 04/10/23 04:18 04/11/23 04:12 Assessment/Plan Assessment/Plan as above Critical Care: Critically Ill Patient Time spent with patient (mins): 15 VANCE ANDRADE MD Apr 11, 2023 09:58
== END 2023-04-11 09:46 | disposition home or self-care (01) ==
LOC: EDUNIT# 20:40 → ER FS 20:42 → UNDOADMIN 23:30 → ICU 23:30 → UNDODISIN 04-11 12:20
PROVIDERS: ADMIT Internal Medicine; ATTEND Internal Medicine
DX: I48.0 Paroxysmal atrial fibrillation (principal); R53.1 Weakness; I10 Essential (primary) hypertension; U07.1 COVID-19; E78.5 Hyperlipidemia, unspecified; Z87.891 Personal history of nicotine dependence; Z95.818 Presence of other cardiac implants and grafts; Z28.310 Unvaccinated for COVID-19
CPT/HCPCS: 36415; 71045; 80053 ×3; 83690; 83735 ×3; 83880; 84100 ×2; 84484; 85025 ×3; 85610; 85730; 87081; 93005 ×2; 93041; 96365; 96366 ×2; 96372; 96374; 96376; 99284; C8929; G0378 ×2; 93306